=== PATIENT | male | born 1950 | race Caucasian/White ===

== ENCOUNTER 2016-09-27 12:05 | Inpatient (IN) | payer OTHER, MEDICAID ==
[~2016-09-27] VITALS: Ht 177.8 cm; Wt 78.9 kg
[2016-09-27 12:05] VITALS: BP_SYST 85
[~2016-09-27 12:05] MED LIST: ACET-2165 PO; AMPHOGEL PO; ARGI1POW13 PO; ASCO500T20 PO; ATOR20TA64 PO; BACL10TA PO; CAT.1 PO; CYM30 PO; DULR10 RC; ESCI10TA PO; FLEET RC; FOLI-43 PO; GABA-531 PO; HYDR4TAB26 PO; LYR50 PO; MAGN400O4 PO; MELA3TAB37 PO; METO25TA3 PO; MORP30TA PO; MORP30TA59 PO; MULT PO; POLY17PO4 PO; PRO40 PO; TAMS-11 PO; TEMA15CA51 PO; TIZA4TAB11 PO
[2016-09-27] MEDS ORDERED: NACL 0.9% 1,000 ML IV ONE ×2 (12:15→12:30)
[2016-09-27] MEDS ORDERED: LORazepam 2 MG/ML VIAL (FOR ER USE) IVP ONE (12:15)
--- NOTE | 2016-09-27 12:15 | NUR ---
Pt BIB ALS and placed to bed 01, to gown and connected to hedis coordinator. Pt report received from GLORIA Espinoza. [facility]t [facility]. Pt currently alert, responsive, oriented to self. No report of fall or trauma. Dsg to Left and Right buttocks, dsgs removed to reveal 6x8 cm decubitus to Right buttocks with bone visible. 6x10 cm decubitus to Left buttocks, bright red with bone visible. Wounds cleaned with NS and gauze dsg applied. F/C in place, no drainage to bag. Pt denies c/o pain or discomfort.
--- NOTE | 2016-09-27 12:25 | NUR ---
Dr. Becerra at bedside to assess pt.
[2016-09-27] MEDS ORDERED: cefTRIAXone 1 GM IVPB PREMIX 50 ML IV ONE (12:30)
[2016-09-27] MEDS ORDERED: METOCLOPRAMIDE HCL 10 MG/2 ML VIAL IVP ONE (12:30)
[2016-09-27 12:40] LABS: HEMOGLOBIN 9.4 g/dL (14.0-18.0); MEAN CORPUSCULAR HEMOGLOBIN 23 pg (27-31); MEAN CORPUSCULAR HGB CONC 31 % (32-36); MEAN CORPUSCULAR VOLUME 73 fL (79.0-98.0); PLATELET COUNT (AUTO) 506 K/uL (130-430); RED BLOOD CELL COUNT(AUTO) 4.09 MIL/uL (4.2-6.2); WHITE BLOOD COUNT (AUTO) 27.2 K/uL (4.8-10.8)
--- NOTE | 2016-09-27 12:47 | NUR ---
x ray at bedside
[2016-09-27 12:50] LABS: ANION GAP 9 (5-15); CHLORIDE 102 mmol/L (98-107); CREATININE 1.55 mg/dL (0.55-1.30); GLUCOSE 241 mg/dL (70-99); POTASSIUM 4.6 mmol/L (3.5-5.1); SODIUM SERUM 138 mmol/L (136-145); UREA NITROGEN, BLOOD 46 mg/dL (8-21)
[2016-09-27 12:54] LABS: GFR AFRICAN AMERICAN 58 mL/min (>90)
[2016-09-27 12:56] LABS: ALANINE AMINOTRANSFERASE 12 U/L (12-78); ASPARTATE AMINOTRANSFERASE 15 U/L (10-37); TOTAL BILIRUBIN 0.6 mg/dL (0.0-1.0); TOTAL PROTEIN, SERUM 7.6 g/dL (6.4-8.3)
[2016-09-27 12:59] LABS: SALICYLATE 1 mg/dL (3-30)
[2016-09-27 13:01] LABS: ACETAMINOPHEN < 1 ug/mL (1-30)
[2016-09-27 13:04] LABS: ALCOHOL, BLOOD < 3 mg/dL (<10)
[2016-09-27 13:06] LABS: ATYPICAL LYMPHOCYTES % 1 % (0-0); BAND % (MANUAL) 15 % (0-6); EOSINOPHILS % (MANUAL) 0 % (0-7); LYMPHOCYTES % (MANUAL) 13 % (20-46); MONOCYTES % (MANUAL) 2 % (0-11)
[2016-09-27 13:07] LABS: BASOPHILS % (MANUAL) 0 % (0-2); INR 1.1 (0.80-1.20); PROTHROMBIN TIME 11.9 SECS (9.5-12.5)
[2016-09-27] MEDS ORDERED: NOREPINEPHRINE BITARTRATE 4 MG in NS 250 ML IV ONE (13:15)
[2016-09-27 13:34] LABS: BILIRUBIN,URINE NEGATIVE (NEGATIVE); BLOOD, URINE NEGATIVE (NEGATIVE); COLOR,URINE YELLOW (YELLOW); GLUCOSE,URINE NEGATIVE (NEGATIVE); KETONES,URINE NEGATIVE (NEGATIVE); LEUKOCYTE ESTERASE ,URINE 2+ (NEGATIVE); NITRITE, URINE POSITIVE (NEGATIVE); PH,URINE >=9.0 (5.0-8.0); PROTEIN URINE 3+ (NEGATIVE)
[2016-09-27 13:47] LABS: CLARITY/URINE SLIGHTLY CLOUDY (CLEAR)
[2016-09-27 13:48] LABS: BARBITURATE, URINE NEGATIVE (NEG <=200); BENZODIAZEPINE, URINE NEGATIVE (NEG <=150); CANNABINOID, URINE NEGATIVE (NEG <=50); COCAINE, URINE NEGATIVE (NEG <=150); METHAMPHETAMINES SCREEN,URINE NEGATIVE (NEG <=500); OPIATE, URINE POSITIVE (NEG <=100); PHENCYCLIDINE SCREEN,URINE NEGATIVE (NEG <=25); UR TRICYCLIC ANTIDEPRESSANTS NEGATIVE (NEG <=300); URINE AMPHETAMINE NEGATIVE (NEG <=500); URINE METHADONE NEGATIVE (NEG <=200); URINE OXYCODONE SCREEN NEGATIVE (NEG <=100); URINE PROPOXYPHENE SCREEN NEGATIVE (NEG <=300)
[2016-09-27 13:49] LABS: BACTERIA,URINE MANY /HPF (None Seen); RBC,URINE NONE SEEN /HPF (0-3); URINE AMORPHOUS PHOSPHATES 3+ /HPF (None Seen); WBC,URINE 20-50 /HPF (0-3)
[2016-09-27] MEDS ORDERED: MIDAZOLAM HCL 5 MG/5 ML VIAL ONE (14:00)
[2016-09-27] MEDS ORDERED: PROPOFOL 200MG/ 20ML VIAL (DIPRIVAN) IV ONE (14:00)
[2016-09-27] MEDS ORDERED: MEPERIDINE HCL/PF 100 MG/ML AMP ONE (14:00)
--- NOTE | 2016-09-27 14:00 | NUR ---
Stoma noted Right lateral of penis, no s/s infection to site. F/C changed. Upon removal, a gush of urine comes out, foul smelling. New F/C placed using sterile technique, immediate return of 200 mL straw, cloudy urine to bag. Bed linens changed, new gown placed.
--- NOTE | 2016-09-27 15:00 | NUR ---
Pt resting with eyes closed, even and non-labored respiration, improvement to B/P 108/68.
[2016-09-27] MEDS ORDERED: DOCU-144 PO (15:25)
[2016-09-27] MEDS ORDERED: ZOLP10TA2 PO (15:25)
[2016-09-27] MEDS ORDERED: ENOX40DI8 SQ (15:25)
[2016-09-27] MEDS ORDERED: CLOP75TA2 PO (15:25)
[2016-09-27] MEDS ORDERED: LACT1CAP69 PO (15:25)
[2016-09-27] MEDS ORDERED: ALBU2.5V7 INH (15:25)
[2016-09-27] MEDS ORDERED: POTA20TA83 PO (15:25)
[2016-09-27] MEDS ORDERED: FURO20TA4 PO (15:25)
[2016-09-27] MEDS ORDERED: SUCR1TAB78 PO (15:25)
[2016-09-27] MEDS ORDERED: INSU100V32 SUBCUT (15:25)
[2016-09-27] MEDS ORDERED: METO-290 PO (15:25)
[2016-09-27] MEDS ORDERED: MAG-55 PO (15:25)
[2016-09-27] MEDS ORDERED: ARGI1POW13 PO (15:25)
[2016-09-27] MEDS ORDERED: HYDR2TAB34 IVP (15:25)
[2016-09-27] MEDS ORDERED: AMI200 PO (15:25)
[2016-09-27] MEDS ORDERED: MIDO2.5T PO (15:25)
[2016-09-27] MEDS ORDERED: FAMO40TA7 PO (15:25)
[2016-09-27] MEDS ORDERED: CARV6.2554 PO (15:25)
[2016-09-27] MEDS ORDERED: NITSL SL (15:25)
--- NOTE | 2016-09-27 15:25 | NUR ---
Medication reconciliation completed with information provided by - LIST FROM FACILITY. Any prior medication reconciliation on file was reviewed and corrected.
--- NOTE | 2016-09-27 16:30 | NUR ---
Note ángel in EDM - 09/27/16 at 1703 by RM Patient will be admitted to care of Dr. Toledo. Admitted to Tele unit. Will go to room 121B. Summary report printed. Bedside report given to GLORIA Chacon.
--- NOTE | 2016-09-27 16:30 | NUR ---
Patient will be admitted to care of Dr. Toledo. Admitted to Tele unit. Will go to room 121A. Summary report printed. Bedside report given to GLORIA Chacon.
--- NOTE | 2016-09-27 16:41 | NUR ---
ADMISSION NOTE Received patient from ER via jm, received report from CHUCKING AND SAWING MACHINE OPERATOR. Patient admitted with diagnosis of SEPSIS. Patient oriented to hospital routine, call light, toileting and safety-patient verbalized understanding.
[2016-09-27] MEDS ORDERED: MAGNESIUM SULFATE 50 ML IV PRN (16:45)
[2016-09-27] MEDS ORDERED: ONDANSETRON HCL 4 MG/2 ML VIAL IVP PRN (16:45)
[2016-09-27] MEDS ORDERED: ACETAMINOPHEN 325 MG TABLET PO PRN (16:45)
[2016-09-27] MEDS ORDERED: ALBUTEROL SULFATE 0.083% 2.5 MG/3 ML VIAL.NEB INH PRN (16:45)
[2016-09-27] MEDS ORDERED: DEXTROSE 50% JECT 50 ML DISP.SYRIN IVP PRN (16:45)
[2016-09-27] MEDS ORDERED: DOCUSATE SODIUM 100 MG CAPSULE PO PRN ×2 (16:45)
[2016-09-27] MEDS ORDERED: DULoxetine HCL 30 MG CAPSULE.DR (CYMBALTA) PO PRN (16:45)
[2016-09-27 16:59] VITALS: BP_SYST 118
[2016-09-27] MEDS: D5NS 1,000 ML IV SCH (17:24)
[2016-09-27 17:53] VITALS: BP_SYST 118
[2016-09-27] MEDS: PIPERACILLIN/TAZO 2.25G/DEX-IS 50 ML IV SCH (17:57)
[2016-09-27] MEDS: INSULIN ASPART 100 UNITS/ML, 10 ML VIAL (NovoLOG) SUBCUT PRN ×2 (18:04→21:32)
--- NOTE | 2016-09-27 18:30 | NUR ---
WOUND NOTE PATIENT CURRENTLY HAS WOUND ON BILATERAL BUTTOCKS, WOUND NOT VISUALIZED WOUND IS COVERED WITH FOAM GAUZE DRESSING, THERE IS A WOUND ON LEFT LATERAL LOWER LEG AND LEFT FOOT, UNABLE TO ASSESS, WOUNDS COVERED WITH FOAM GAUZE DRESSING, WILL ENDORSE TO SOFTWARE INSTALLATION ENGINEER NURSE FOR PICTURES AND WOUND CARE.
--- NOTE | 2016-09-27 18:49 | NUR ---
CLOSING NOTE PATIENT IS CURRENTLY RESTING IN BED WITH EYES CLOSED, NO SIGNS OF DISTRESS, BREATHING IS EVEN AND UNLABORED, ALL NEEDS MET, WILL ENDORSE PATIENT TO PACKING SUPERVISOR NURSE, BED IN LOWEST POSITION, THREE SIDE RAILS UP, BED ALARM ON, FALL PRECAUTIONS IN PLACE
--- NOTE | 2016-09-27 19:30 | NUR ---
notes received the pt from the day nurse,pt a/a/ox3 no complaints of pain or discomfort. picc line intact to rt upper arm no redness or swelling noted.iv to lt hand intact.pt has open areas to buttocks and lt leg and foot ,will take pictures later tonight.call light within reach.safety measures progress.o2 via nc in place at 2l/min.monitor shows SR pt is paraplegic and can not move his legs.c/o back pain rn was notified but states the pts blood pressure is too low.will continue to monitor.
[2016-09-27 19:40] VITALS: BP_SYST 90
[2016-09-27] MEDS: ATORVASTATIN 20 MG TABLET PO SCH (21:23)
[2016-09-27] MEDS: AMIODARONE HCL 200 MG TABLET PO SCH (21:24)
--- NOTE | 2016-09-27 21:30 | NUR ---
notes pts bp is 88/50 pt informed that we can not give him the morphine untill the bp goes up.continue to monitor.
[2016-09-27] MEDS: VANCOMYCIN HCL 1,500 MG in NS 250 ML IV SCH (22:00)
--- NOTE | 2016-09-27 23:30 | NUR ---
notes pt requesting morphine,bp checked and now is 98/56 rn was notified.
[2016-09-28] VITALS (7 sets, daily range): BP systolic 92–137
--- NOTE | 2016-09-28 01:15 | NUR ---
notes pt resting with eyes closed ,call light within reach.continue to monitor.
[2016-09-28] MEDS: D5NS 1,000 ML IV SCH ×3 (01:44→20:50)
[2016-09-28] MEDS: PIPERACILLIN/TAZO 2.25G/DEX-IS 50 ML IV SCH ×4 (01:44→17:09)
--- NOTE | 2016-09-28 03:13 | NUR ---
PATIENT HAS COMPLAINTS OF PAIN. JK=817/56. HR= 98 WILL GIVE PRN PAIN MEDICATION.
[2016-09-28] MEDS: MORPHINE 2 MG/ML INJ. SYRINGE IVP PRN ×2 (03:16→09:00)
--- NOTE | 2016-09-28 03:30 | NUR ---
notes pictures taken of buttocks decubitus.open area of lt heel,open areas to lt lower leg.dressings applied..colostomy bag full of soft brown stool.bag changed.pt complaining that the morphine is not helping and is asking for Dilaudid pt was educated on what happens to his bp if he receives strong narcotics.also told mult.times that his bp has been running low..repositioned to his side with pillow support.call light within reach.continue to monitor.
--- NOTE | 2016-09-28 05:30 | NUR ---
pt resting with eyes closed but will open his eyes and c/o pain.will notify the rn.bp 101/67
[2016-09-28] MEDS: INSULIN ASPART 100 UNITS/ML, 10 ML VIAL (NovoLOG) SUBCUT PRN ×4 (06:27→21:06)
--- NOTE | 2016-09-28 06:52 | NUR ---
closing notes. pt awake alert watching tv,will endorse the care of the pt to the day nurse.
[2016-09-28 07:00] LABS: HEMATOCRIT 24.9 % (36-54); HEMOGLOBIN 7.5 g/dL (14.0-18.0); MEAN CORPUSCULAR HEMOGLOBIN 22 pg (27-31); MEAN CORPUSCULAR HGB CONC 30 % (32-36); MEAN CORPUSCULAR VOLUME 73 fL (79.0-98.0); PLATELET COUNT (AUTO) 405 K/uL (130-430); WHITE BLOOD COUNT (AUTO) 18.7 K/uL (4.8-10.8)
[2016-09-28 07:18] LABS: CREATININE 1.28 mg/dL (0.55-1.30); POTASSIUM 3.7 mmol/L (3.5-5.1)
--- NOTE | 2016-09-28 07:35 | NUR ---
am rounds: patient awake during rounds. report given at bedside by nani zamorano. with right upper arm piccline on.right forearm ivf on going intact. with o2 2l/nc,good saturation. paraphlegic. pt oriented x4. right ileostomy intact. archer draining to yellow urine. no distress this time.
[2016-09-28] MEDS: AMIODARONE HCL 200 MG TABLET PO SCH ×2 (09:00→20:51)
--- NOTE | 2016-09-28 09:06 | NUR ---
PAIN MEDS: C/O MID BILATERAL LOWER LEG PAIN AND DUE IV PAIN MEDS GIVEN PER REQUEST.
[2016-09-28 09:16] LABS: BAND % (MANUAL) 6 % (0-6)
[2016-09-28 09:17] LABS: BASOPHILS % (MANUAL) 0 % (0-2); EOSINOPHILS % (MANUAL) 1 % (0-7); LYMPHOCYTES % (MANUAL) 4 % (20-46); MONOCYTES % (MANUAL) 6 % (0-11)
--- NOTE | 2016-09-28 09:46 | NUR ---
Nutrition Update Slim Scale 13 noted. Pt admitted for sepsis. Diet: [facility] BMI: 23.7 kg/m2 RD to follow per nutrition care standards.
--- NOTE | 2016-09-28 11:20 | NUR ---
Consult was called Re: Sepsis spoke with Jadyn from Dr Arias office.
[2016-09-28] MEDS: CLOPIDOGREL BISULFATE 75 MG TABLET PO SCH (11:23)
[2016-09-28] MEDS: HYDROmorphone 2 MG/ML VIAL IVP PRN ×3 (11:27→21:15)
--- NOTE | 2016-09-28 11:46 | NUR ---
BLOOD SUGAR: BLOOD SUGAR TAKEN,WITH INSULIN COVERAGE GIVEN PER SLIDING SCALE.
--- NOTE | 2016-09-28 15:15 | NUR ---
rounds; ultrasound of both knees done at bedside. stable.
--- NOTE | 2016-09-28 17:11 | NUR ---
BLOOD SUGAR: BLOOD SUGAR TAKEN,WITH INSULIN COVERAGE GIVEN PER SLIDING SCALE.
--- NOTE | 2016-09-28 17:12 | NUR ---
WOUND CARE: CLEANSE NS TO LEFT HEEL,HYDROGEL ON WOUND BED,Z-GUARD ON PERIWOUND AREA,COVERED WITH OPTIFOAM GENTLE.LEFT LATERAL LEG CLEANSE WITH NS,HYDROGEL TO WOUND BED AND Z-GUARD TO PERIWOUND AREA,COVERED WITH OPTIFOAM AND WRAPPED WITH KERLIX. BILATERAL BUTTOCKS CLEANSE WITH NS ,TENDER WETS ON EACH WOUND AND COVERED WITH SACRAL OPTIFOAM GENTLE.
--- NOTE | 2016-09-28 18:44 | NUR ---
CLOSING NOTES: PATIENT ATE DINNER ALREADY. IVF ON GOING IN PLACED.NEEDS ATTENDED TO. NO DISTRESS. CONTINUE TO MONITOR.
--- NOTE | 2016-09-28 19:45 | NUR ---
notes received the pt from the day nurse,pt a/a/ox4 asking when he can get more pain medication.was informed he can have it at 2044.all dressings to lt leg and buttocks are dry and intact.colostomy bag noticed empty.monitor in place and shows SR.iv to rt forearm intact,no redness or swelling noted.picc line intact to upper rt arm.o2 via nc in place at 2l/min.pt is paraplegic and can only move from the waist up.pt informed that he can not have anything by mouth after midnight.call light within reach,safety measures in progress.continue to monitor.
[2016-09-28] MEDS: ATORVASTATIN 20 MG TABLET PO SCH (20:50)
[2016-09-28] MEDS: FERROUS SULFATE 325 MG TABLET.DR PO SCH (20:51)
--- NOTE | 2016-09-28 21:19 | NUR ---
NOTES C/O PAIN TO HIS LEGS 02/28 RN WAS NOTIFIED.ACCUCHECK WAS 222,INSULIN GIVEN PER S/S REPOSITIONED WITH PILLOW SUPPORT.CONTINUE TO MONITOR.
[2016-09-28] MEDS: ZOLPIDEM TARTRATE 5 MG TABLET PO PRN (21:59)
--- NOTE | 2016-09-28 22:06 | NUR ---
notes stool sent to the lab.
[2016-09-28] MEDS: VANCOMYCIN HCL 1,500 MG in NS 250 ML IV SCH (23:27)
--- NOTE | 2016-09-28 23:47 | NUR ---
notes pt sleeping,call light within reach.continue to monitor.
[2016-09-29] MEDS: PIPERACILLIN/TAZO 2.25G/DEX-IS 50 ML IV SCH ×4 (00:45→17:10)
--- NOTE | 2016-09-29 01:30 | NUR ---
NOTES PT SLEEPING.NO DISTRESS NOTED.CALL LIGHT WITHIN REACH.CONTINUE TO MONITOR,.
[2016-09-29] MEDS: HYDROmorphone 2 MG/ML VIAL IVP PRN ×4 (01:44→20:38)
--- NOTE | 2016-09-29 03:30 | NUR ---
NOTES PT REPOSITIONED WITH PILLOW SUPPORT.CONTINUE TO MONITOR.
[2016-09-29 04:07] VITALS: BP_SYST 111
--- NOTE | 2016-09-29 05:11 | NUR ---
NOTES PT REPOSITIONED WITH PILLOW SUPPORT.CONTINUE TO MONITOR.
[2016-09-29] MEDS: INSULIN ASPART 100 UNITS/ML, 10 ML VIAL (NovoLOG) SUBCUT PRN ×3 (05:49→21:40)
--- NOTE | 2016-09-29 05:53 | NUR ---
accucheck was 185,insulin given per s/s.laborer wrecking and salvaging is at the bedside to draw blood.
--- NOTE | 2016-09-29 06:14 | NUR ---
closing notes pt awake alert.lab is at the bed side to draw blood.will endorse the care of the pt to the day nurse.
[2016-09-29 06:38] LABS: EOSINOPHILS # (AUTO) 0.7 K/uL (0.0-0.4); LYMPHOCYTES # (AUTO) 1.1 K/uL (1.0-5.5); MONOCYTES # (AUTO) 0.6 K/uL (0.0-1.0)
[2016-09-29 06:51] LABS: CALCIUM 8.2 mg/dL (8.4-11.0); CREATININE 1.07 mg/dL (0.55-1.30); POTASSIUM 3.2 mmol/L (3.5-5.1)
[2016-09-29 07:02] LABS: BASOPHILS % (AUTO) 0.2 % (0.0-2.0); EOSINOPHILS % (AUTO) 4.8 % (0.0-4.0); HEMATOCRIT 23.9 % (36-54); HEMOGLOBIN 7.5 g/dL (14.0-18.0); LYMPHOCYTES % (AUTO) 7.7 % (20.5-51.5); MEAN CORPUSCULAR HEMOGLOBIN 23 pg (27-31); MEAN CORPUSCULAR HGB CONC 32 % (32-36); MEAN CORPUSCULAR VOLUME 73 fL (79.0-98.0); MONOCYTES % (AUTO) 3.8 % (1.7-9.3); NEUTROPHILS # (AUTO) 12.3 K/uL (1.8-7.7); NEUTROPHILS % (AUTO) 83.5 % (40.0-70.0); PLATELET COUNT (AUTO) 407 K/uL (130-430); RED BLOOD CELL COUNT(AUTO) 3.28 MIL/uL (4.2-6.2); WHITE BLOOD COUNT (AUTO) 14.7 K/uL (4.8-10.8)
[2016-09-29 08:00] VITALS: BP_SYST 112
--- NOTE | 2016-09-29 08:00 | NUR ---
NOTE PT RESTING IN BED. PT HAS O2 AT 2L/NC AT THIS TIME AND MELO CATHETER INTACT AND DRAINING WELL. NO SOB/RESP DISTRESS OR SEVERE PAIN/DISCOMFORT WAS NOTED AT THIS TIME. IV IN RIGHT FOREARM INTACT AND INFUSING IVF'S WELL. NO NEEDS NOTED AT THIS TIME. CALL LIGHT WITHIN REACH.
[2016-09-29] MEDS: D5NS 1,000 ML IV SCH ×2 (08:25→09:03)
[2016-09-29] MEDS: AMIODARONE HCL 200 MG TABLET PO SCH ×2 (08:37→21:37)
[2016-09-29] MEDS: DULoxetine HCL 30 MG CAPSULE.DR (CYMBALTA) PO SCH (08:38)
[2016-09-29] MEDS: CLOPIDOGREL BISULFATE 75 MG TABLET PO SCH (08:38)
[2016-09-29] MEDS: FERROUS SULFATE 325 MG TABLET.DR PO SCH ×2 (08:38→21:37)
--- NOTE | 2016-09-29 10:00 | NUR ---
NOTE PT WAS GIVEN HIS CHG BATH AND PT OFF THE FLOOR VIA BED TO OR WITH CHART WELL.
[2016-09-29] MEDS ORDERED: LR 1,000 ML IV SCH (10:42)
[2016-09-29] MEDS ORDERED: ONDANSETRON HCL 4 MG/2 ML VIAL IVP PRN (10:45)
[2016-09-29] MEDS ORDERED: HYDROmorphone 2 MG/ML VIAL IVP PRN ×2 (10:45)
[2016-09-29] MEDS ORDERED: HYDROmorphone 1 MG INJ. 1 MG/ML AMPUL IVP PRN (10:45)
--- NOTE | 2016-09-29 11:55 | NUR ---
NOTE DR ESTRADA ON THE FLOOR. NOTIFIED THAT PT TESTED POSITIVE FOR MRSA IN NARES AND MDRO AND ESBL IN URINE.
--- NOTE | 2016-09-29 12:15 | NUR ---
Wound Consult: Late note for 1215 secondary to patient care. Wound consult request per Dr. Toledo. Thank you, Dr. Toledo, for the consult. Patient awake, alert, oriented, and received in operating room. Skin is poor. Past medical history: Paraplegia, Chronic Pain, Opioid Dependence, Hypertension, Hyperlipidemia, Benign Prostatic Hypertrophy, diet-controlled Diabetes Mellitus, Stage IV Decubitus Ulcer, and Diverting Colostomy. Current labs: WBC 14.7, RBC 3.28, Hgb 7.5, Hct 23.9, K 3.2, BUN 16, Creat 1.07, GFR 73, Gluc 220, Ca 8.2, Alb 2.0. Urine Culture positive for Proteus Mirabilis (ESBL, NDRO). MRSA Screen positive. Stool OB negative. Blood Culture x 2 in progress. Intrinsic factors that delay wound healing: Diabetes Mellitus. Extrinsic factors: decreased mobility. Patient presents with: 1) Buttocks Area: Two wounds, present on admission, status post debridement. Wound Vac dressings attached. Dressings not removed for assessment. Attached additional wound vac suction attachment per OR Staff request. Wound Vac started, running at 125 mmHg continuous, no leakage, on right buttock. Awaiting wound vac for left buttock (ordered). Second Wound Vac will be attached when it arrives. If it is longer than two hours, then a new granufoam dressing will be placed before wound vac is attached. Skin will be further assessed on next visit, as patient is going to recovery. Also recommend: Reposition patient side to side only every 2 hours with pillow support, place bilateral heels into Heelift Boots. Offload pressure areas with pillows for pressure redistribution. Use moisture barrier cream on buttocks and other moisture susceptible areas qid and prn for soiling. Place patient on a low air-loss mattress. Place Heelift Boot foam blocks on lateral aspects of Heelift Boots to help prevent external rotation of bilateral lower extremities (use pillows as needed if Heelift Boots alone do not prevent external rotation).
[2016-09-29 12:30] VITALS: BP_SYST 115
--- NOTE | 2016-09-29 12:30 | NUR ---
note pt back from PACU. left heel dressing CDI at this time. coccyx dressing CDI. wound vac not attached at this time, missing a piece. Carlton vp account director aware and will assist in finding missing piece. call light within reach. pain at 8/10 on pain scale of 0/10.
[2016-09-29 12:45] VITALS: BP_SYST 116
--- NOTE | 2016-09-29 15:30 | NUR ---
NURSING NOTE PT RESTING IN BED. NO SOB/RESP DISTRESS OR SEVERE PAIN/DISCOMFORT WAS NOTED AT THIS TIME. PT WAS TURNED Q2' FOR COMFORT AND PROMOTION OF CIRCULATION. DRESSINGS ARE CDI AT THIS TIME. IVF'S INFUSING WELL AT THIS TIME. PAIN TOLERABLE AT THIS TIME. NO NEEDS NOTED AT THIS TIME. CALL LIGHT WITHIN REACH.
--- NOTE | 2016-09-29 18:45 | NUR ---
NOTE PT SITTING UP IN BED EATING HIS DINNER. DRESSING ON COCCYX AND LEFT HEEL CDI AT THIS TIME. NO SOB/RESP DISTRESS OR PAIN/DISCOMFORT NOTED AT THIS TIME. WOUND VAC STILL NOT ATTACHED NEW WOUND VAC HAS NOT ARRIVED ON FLOOR YET. NO NEEDS NOTED. PT WAS CHECKED ON Q1' AND PRN FOR NEEDS AND CARE. PT WAS ASSISTED IN TURNING Q2' FOR COMFORT. CALL LIGHT WITHIN REACH. IVF'S INFUSING WELL THROUGH RIGHT HAND IV. SITE BENIGN AND PATENT AT THIS TIME.
--- NOTE | 2016-09-29 19:30 | NUR ---
NOTE MARLEN - CDL INSTRUCTOR BROUGHT IN NEW WOUND VAC AT THIS TIME. EXPLAINED TO ADAPTIVE PHYSICAL EDUCATION SPECIALIST NAVEEN POLLARD, THAT COCCYX DRESSING WILL HAVE TO BE REMOVED AND NEW FOAM WILL HAVE TO BE APPLIED WHEN ATTACHING WOUND VAC PER MARLEN'S INSTRUCTIONS.
[2016-09-29 19:35] VITALS: BP_SYST 120
--- NOTE | 2016-09-29 19:35 | NUR ---
Initial Notes Pt is A/Ox4. Pt c/o bilateral hip pain but informed that pain medication not due at this time. Pt educated on pain management, and agreed with education given. Plan of care discussed with pt, pt verbalized understanding. VSS. IV intact infusing well with IV fluids ordered. Colostomy bag noted to Right lower abdomen, with formed brown stool. Wound Vac noted to sacral area, will do wound vac dressing change as ordered. F/C noted in place and draining well to gravity, with clear/yellow urine noted in collection bag. Dressing to left foot noted, clean, dry and intact. Bilateral scd's noted in place of dvt prophylaxis. Safety precautions in place, side rails up x3 with bed in lowest, locked position, bed alarm on at all times. Pt educated electronic warfare operator light, and correct back demonstration noted. All needs met at this time. Will continue to monitor.
--- NOTE | 2016-09-29 20:38 | NUR ---
Pain Management Pt c/o bilateral hip pain 02/28. Covering RN notified and medicated for pain as ordered. All needs met. Call light in hand. Will continue to monitor.
[2016-09-29] MEDS: VANCOMYCIN HCL 1,500 MG in NS 250 ML IV SCH (20:42)
[2016-09-29] MEDS: ATORVASTATIN 20 MG TABLET PO SCH (21:35)
--- NOTE | 2016-09-29 21:40 | NUR ---
Scheduled medications/Blood sugar All scheduled medications discussed with pt, pt agreed with teaching. Blood sugar checked, 162. 2 units of NovoLog given SQ as ordered. All needs met at this time. Will continue to monitor.
--- NOTE | 2016-09-29 22:00 | NUR ---
Colostomy bag changed New colostomy bag placed at this time to right lower abdomen. Pt tolerated well with no c/o pain at this time. Call light in hand. Will continue to monitor.
--- NOTE | 2016-09-29 23:36 | NUR ---
Wound Vac Care - Wound Vac care done with diesel engine ii pipe fitter at bedside to bilateral buttocks as ordered. Pt tolerated well and was pre medicated as ordered. No air leakage noted, wound vac set to 125mmhg as ordered. Pt re positioned with pillows to off load both hips. Warm blankets provided. All needs met at this time. Call light in hand. Will continue to monitor.
--- NOTE | 2016-09-30 00:26 | NUR ---
New IV site New IV site started to LFA #22g on first attempt with good blood return noted. Pt tolerated well. IV fluids resumed. All needs met. Call light in hand. Will continue to monitor.
[2016-09-30 00:41] VITALS: BP_SYST 135
[2016-09-30] MEDS: PIPERACILLIN/TAZO 2.25G/DEX-IS 50 ML IV SCH ×4 (00:44→18:10)
[2016-09-30] MEDS: POTASSIUM CHLORIDE 10 MEQ TAB.PRT.SR PO PRN (00:56)
--- NOTE | 2016-09-30 02:31 | NUR ---
Rounds Pt is resting in bed at this time in no acute distress noted. All needs met at this time. Will continue to monitor.
[2016-09-30] MEDS: HYDROmorphone 2 MG/ML VIAL IVP PRN ×5 (04:48→22:06)
--- NOTE | 2016-09-30 04:48 | NUR ---
Pain Management Pt c/o bilateral lower extremity pain 02/28. Covering RN notified and medicated for pain as ordered. All needs met. Call light in hand. Will continue to monitor.
[2016-09-30] MEDS: D5NS 1,000 ML IV SCH ×3 (06:03→18:07)
[2016-09-30] MEDS: INSULIN ASPART 100 UNITS/ML, 10 ML VIAL (NovoLOG) SUBCUT PRN ×4 (06:04→21:54)
[2016-09-30 06:05] VITALS: BP_SYST 123
[2016-09-30 06:59] LABS: BASOPHILS # (AUTO) 0.1 K/uL (0.0-0.2); BASOPHILS % (AUTO) 0.5 % (0.0-2.0); EOSINOPHILS # (AUTO) 0.6 K/uL (0.0-0.4); EOSINOPHILS % (AUTO) 4.4 % (0.0-4.0); HEMOGLOBIN 7.4 g/dL (14.0-18.0); LYMPHOCYTES # (AUTO) 1.2 K/uL (1.0-5.5); LYMPHOCYTES % (AUTO) 9.9 % (20.5-51.5); MEAN CORPUSCULAR HEMOGLOBIN 23 pg (27-31); MEAN CORPUSCULAR HGB CONC 31 % (32-36); MEAN CORPUSCULAR VOLUME 73 fL (79.0-98.0); MONOCYTES # (AUTO) 0.7 K/uL (0.0-1.0); MONOCYTES % (AUTO) 5.4 % (1.7-9.3); NEUTROPHILS % (AUTO) 79.8 % (40.0-70.0); PLATELET COUNT (AUTO) 418 K/uL (130-430); RED BLOOD CELL COUNT(AUTO) 3.29 MIL/uL (4.2-6.2); RED CELL DISTRIBUTION WIDTH 20.8 % (9.0-15.0); WHITE BLOOD COUNT (AUTO) 12.6 K/uL (4.8-10.8)
--- NOTE | 2016-09-30 07:01 | NUR ---
Closing Notes Assisted pt to turn to right side with pillows for comfort. Blood sugar checked 185, 2 units of novolog given to right upper arm as per sliding scale. Wound vac to right and left buttocks running well with no air leak noted, with total of 40cc to left wound vac, and 0 output noted to wound vac to right buttocks. Pt in stable condition with no acute distress noted. VSS. IV intact to LFA #22g. Call light in hand. Will endorse care to am nurse. Will continue to monitor.
[2016-09-30 07:12] LABS: CREATININE 1.01 mg/dL (0.55-1.30); POTASSIUM 3.7 mmol/L (3.5-5.1)
[2016-09-30 08:00] VITALS: BP_SYST 153
--- NOTE | 2016-09-30 08:40 | NUR ---
REPORT RECIEVED EARLIER FROM NIGHTSHIFT; BS ROUNDS MADE. PT AWAKE AND ALERT X4; IV SITE 22G INTACT. DENIES ANY PAIN AT THIS TIME; WOUND VAC INTACT AND DRAINING. NO SOB NOTED. DENIES ANY NAUSEA. CALL LIGHT IN REACH; SAFETY MAINTAINED.
[2016-09-30] MEDS: DULoxetine HCL 30 MG CAPSULE.DR (CYMBALTA) PO SCH (09:18)
[2016-09-30] MEDS: AMIODARONE HCL 200 MG TABLET PO SCH ×2 (09:18→21:51)
[2016-09-30] MEDS: FERROUS SULFATE 325 MG TABLET.DR PO SCH ×2 (09:19→21:50)
[2016-09-30] MEDS: CLOPIDOGREL BISULFATE 75 MG TABLET PO SCH (09:19)
--- NOTE | 2016-09-30 09:45 | NUR ---
Spoke with Dr. Toledo regarding patient's picc line. Gave order to follow hospital protocol for blocked picc line. Discuss with charge nurse.
[2016-09-30 12:00] VITALS: BP_SYST 122
[2016-09-30] MEDS ORDERED: HEPARIN IV FLUSH 300 UNITS/3ML SYR IV PRN (13:30)
[2016-09-30 17:48] VITALS: BP_SYST 125
--- NOTE | 2016-09-30 19:08 | NUR ---
REPORTED OFF TO NIGHTSHIFT; BS ROUNDS MADE. IV SITE INTACT; WOUND VAC INTACT, NO ALARMING TO LEAKING. PAIN UNDER CONTROL AFTER DILAUDID GIVEN. NO S/SX OF ANY HYPO OR HYPERGLYCEMIC REACTIONS. CALL LIGHT IN REACH, SAFETY MAINTAINED AT ALL TIMES.
--- NOTE | 2016-09-30 19:30 | NUR ---
Initial Notes Pt is A/Ox4. Pt denies any pain at this time. Pt repositioned with pillows facing door at this time. Pt educated on pain management, and agreed with education given. Plan of care discussed with pt, pt verbalized understanding. VSS. IV intact infusing well with IV fluids ordered. Colostomy bag noted to Right lower abdomen, with formed brown stool. Wound Vac x2 noted to sacral area. F/C noted in place and draining well to gravity, with clear/yellow urine noted in collection bag. Dressing to left foot noted, clean, dry and intact. Bilateral scd's noted in place of dvt prophylaxis. Safety precautions in place, side rails up x3 with bed in lowest, locked position, bed alarm on at all times. Pt educated transportation maintenance worker light, and correct back demonstration noted. All needs met at this time. Will continue to monitor.
[2016-09-30 19:35] VITALS: BP_SYST 117
[2016-09-30] MEDS: VANCOMYCIN HCL 1,500 MG in NS 250 ML IV SCH (20:58)
--- NOTE | 2016-09-30 21:03 | NUR ---
Paged MD Toledo Awaiting call back.
--- NOTE | 2016-09-30 21:05 | NUR ---
Spoke with MD Toledo Per MD Tre cosby to use PICC line to CIRO. No CXR needed to confirm placement as per MD Order.
[2016-09-30] MEDS: ATORVASTATIN 20 MG TABLET PO SCH (21:50)
[2016-09-30] MEDS: ZOLPIDEM TARTRATE 5 MG TABLET PO PRN (23:19)
[2016-10-01 00:58] VITALS: BP_SYST 109
[2016-10-01] MEDS: PIPERACILLIN/TAZO 2.25G/DEX-IS 50 ML IV SCH ×5 (01:08→23:43)
--- NOTE | 2016-10-01 02:55 | NUR ---
Rounds Pt is sleeping comfortably at this time. No acute distress or sob noted. VSS. PICC line intact. Call light in hand. Will continue to monitor.
[2016-10-01] MEDS: HYDROmorphone 2 MG/ML VIAL IVP PRN ×5 (04:54→21:15)
--- NOTE | 2016-10-01 04:54 | NUR ---
Pain Management Pt c/o bilateral lower extremity pain 03/30. Covering RN notified and medicated for pain as ordered. All needs met. Call light in hand. Will continue to monitor.
[2016-10-01] MEDS: D5NS 1,000 ML IV SCH ×2 (05:02→15:42)
[2016-10-01] MEDS: INSULIN ASPART 100 UNITS/ML, 10 ML VIAL (NovoLOG) SUBCUT PRN ×3 (05:52→17:12)
[2016-10-01 06:11] VITALS: BP_SYST 109
[2016-10-01 06:29] LABS: BASOPHILS # (AUTO) 0.1 K/uL (0.0-0.2); BASOPHILS % (AUTO) 0.8 % (0.0-2.0); EOSINOPHILS # (AUTO) 0.7 K/uL (0.0-0.4); EOSINOPHILS % (AUTO) 8.4 % (0.0-4.0); HEMATOCRIT 24.3 % (36-54); HEMOGLOBIN 7.4 g/dL (14.0-18.0); LYMPHOCYTES # (AUTO) 1.4 K/uL (1.0-5.5); LYMPHOCYTES % (AUTO) 16.5 % (20.5-51.5); MEAN CORPUSCULAR HEMOGLOBIN 22 pg (27-31); MEAN CORPUSCULAR HGB CONC 31 % (32-36); MEAN CORPUSCULAR VOLUME 73 fL (79.0-98.0); MONOCYTES # (AUTO) 0.6 K/uL (0.0-1.0); MONOCYTES % (AUTO) 6.7 % (1.7-9.3); NEUTROPHILS % (AUTO) 67.6 % (40.0-70.0); PLATELET COUNT (AUTO) 456 K/uL (130-430); RED BLOOD CELL COUNT(AUTO) 3.34 MIL/uL (4.2-6.2); RED CELL DISTRIBUTION WIDTH 20.2 % (9.0-15.0); WHITE BLOOD COUNT (AUTO) 8.8 K/uL (4.8-10.8)
[2016-10-01 06:48] LABS: CALCIUM 8.2 mg/dL (8.4-11.0); CREATININE 1.06 mg/dL (0.55-1.30); POTASSIUM 3.5 mmol/L (3.5-5.1)
--- NOTE | 2016-10-01 06:52 | NUR ---
Closing Notes Assisted pt to turn to left side with pillows for comfort. Blood sugar checked 206, 4 units of NovoLog given to right upper arm as per sliding scale. Wound vac to right and left buttocks running well with no air leak noted, with total of 100cc to left wound vac, and 50cc output noted to wound vac to right buttocks. Wound Vac reinforced with Tegaderm. Pt in stable condition with no acute distress noted. VSS. IV intact to LFA #22g. Call light in hand. Will endorse care to am nurse. Will continue to monitor. Addendum: 10/01/16 at 0654 by Colleen Belle LVN Blood sugar 209
--- NOTE | 2016-10-01 07:30 | NUR ---
INITIAL NOTES RECEIVED PATIENT ON BED AWAKE.BREATHING EVEN AND UNLABORED.NO ACUTE DISTRESS.IVF INFUSING WELL;NO SIGNS AND SYMPTOMS OF INFILTRATION.WITH WOUND VAC TO BUTTOCKS INTACT;FUNCTIONING WELL.WITH MELO CATHETER INTACT AND PATENT DRAINING YELLOW URINE.SAFETY AND FALL PRECAUTIONS IN PLACE.CALL LIGHT WITHIN REACH
[2016-10-01 08:00] VITALS: BP_SYST 117
[2016-10-01] MEDS: CLOPIDOGREL BISULFATE 75 MG TABLET PO SCH (09:07)
[2016-10-01] MEDS: DULoxetine HCL 30 MG CAPSULE.DR (CYMBALTA) PO SCH (09:07)
[2016-10-01] MEDS: FERROUS SULFATE 325 MG TABLET.DR PO SCH ×2 (09:07→21:14)
[2016-10-01] MEDS: AMIODARONE HCL 200 MG TABLET PO SCH ×2 (09:09→21:14)
--- NOTE | 2016-10-01 10:20 | NUR ---
NOTES CHECKED PATIENT;NEEDS ATTENDED TO
[2016-10-01 12:00] VITALS: BP_SYST 105
--- NOTE | 2016-10-01 12:34 | NUR ---
DISCHARGE PLANNING Called and spoke with Lovely in admitting at [facility] who confirmed facility not able to handle patient with two wound vacs. CM made aware.
--- NOTE | 2016-10-01 13:00 | NUR ---
NOTES PATIENT EATING LUNCH;TOLERATING WELL
--- NOTE | 2016-10-01 15:00 | NUR ---
Wound Re-Evaluation: Late note for 1500 secondary to patient care. Patient awake, alert, oriented, and received in a Choco Bed with an IsoFlex GEO mattress with low air-loss therapy. Skin is poor. Blood Culture x 2 in progress. Intrinsic factors that delay wound healing: Diabetes Mellitus. Extrinsic factors: decreased mobility. Patient presents with: 1) Buttocks Area: Two wounds, present on admission, status post debridement. Staged as Stage IV Pressure Ulcers by Dr. Grimes. Wound Vac attached, running at 125 mmHg, and not due to be changed until tomorrow. Dressings not removed for assessment, because doing so would decrease wound temperature and retard wound healing rate. Skin will be further assessed on next visit. Recommend: Cleanse wounds with normal Saline. Pat dry. Put SurePrep onto ayanna-wounds. Put Hydrogel onto wound beds. Place black granufoam into wound beds. Cover with Vac drape. Cut hole in drape. Apply SurePrep to buttocks and thighs, and place Vac drape up to a non-bony area of anterior thighs. Run black granufoam up to thighs, and cover with Vac drape. Attach suction attachment. Attach to wound vac and run at 125 mmHg, continuous. Change vac dressings q Wednesday/Wednesday/Wednesday, and as needed for dressing dislodgment. 2) Left Heel: Pressure Ulcer, present on admission. Surgical dressing is clean, dry, and intact. No current wound care orders received by Dr. Grimes. Recommend: Continue to monitor. Reinforce dressing prn. Nursing to follow up with Dr. Grimes for nursing wound care orders. 3) Right Distal Lateral Lower Extremity, Superior to Malleolus: Chronic wound with 100% black eschar, and scar tissue, present on admission. No odor, no drainage. Ayanna-wound intact. Measures 2.3 cm x 0.9 cm. 4) Left Distal Lateral Lower Extremity: Scar tissue, present on admission. No odor, no drainage. 5) Right Great Toe Chronic wound with 100% black eschar, present on admission. No odor, no drainage. Ayanna-wound intact. Recommend: No dressings needed. Continue to monitor for worsening condition. Contact wound interior plant caretaker if areas worsen. 6) Buttocks: Blanchable redness. Recommend: Cleanse area with mild soap and water. Pat dry. Apply moisture barrier cream to buttocks qid and prn for soiling. Also recommend: Reposition patient side to side only every 2 hours with pillow support, place bilateral heels into Heelift Boots. Offload pressure areas with pillows for pressure redistribution. Use moisture barrier cream on buttocks and other moisture susceptible areas qid and prn for soiling. Place patient on a low air-loss mattress. Place Heelift Boot foam blocks on lateral aspects of Heelift Boots to help prevent external rotation of bilateral lower extremities (use pillows as needed if Heelift Boots alone do not prevent external rotation). Take wound cultures of bilateral buttocks wounds. If wounds have no organism, or the same organism, bridge wounds to one wound vac. Otherwise, keep wounds on separate wound vacs.
--- NOTE | 2016-10-01 15:15 | NUR ---
NOTES BODY CHECK DONE WITH WOUND NURSE CLINICAL PRACTITIONER;WOUND VAC DRESSING INTACT;FUNCTIONING WELL.WITH SCAR TISSUE TO BILATERAL LOWER LEGS.WITH BLACK ESCHAR TO RIGHT GREAT TOE.WITH CHRONIC WOUND TO RIGHT POSTERIOR LOWER LEG;NO DRAINAGE;TOLERATED ACTIVITY WELL.SURGICAL DRESSING TO LEFT FOOT DRY CLERANB Addendum: 10/01/16 at 1649 by Kadi Queen RN CLEAN AND INTACT
[2016-10-01 17:03] VITALS: BP_SYST 103
[2016-10-01] MEDS: metFORMIN HCL 500 MG TABLET PO SCH (17:04)
--- NOTE | 2016-10-01 17:26 | NUR ---
patient refuse to be wash and to change sheets RN was aware
--- NOTE | 2016-10-01 18:00 | NUR ---
NOTES REPOSITIONING DONE;TOLERATED WELL.OFFERED BEDSIDE CARE BUT REFUSED STATED "NO I'M OKAY"
--- NOTE | 2016-10-01 19:00 | NUR ---
CLOSING NOTES PATIENT ON BED AWAKE WATCHING T.V.BREATHING EVEN AND UNLABORED.NO ACUTE DISTRESS.IVF INFUSING WELL;NO SIGNS AND SYMPTOMS OF INFILTRATION.MELO CATHETER INTACT AND PATENT DRAINING YELLOW URINE.WOUND VAC INTACT;FUNCTIONING WELL.SAFETY AND FALL PRECAUTIONS IN PLACE.CALL LIGHT WITHIN REACH.ENDORSED TO NEXT SHIFT ACCORDINGLY
[2016-10-01 19:50] VITALS: BP_SYST 124
--- NOTE | 2016-10-01 19:50 | NUR ---
INITIAL NOTES; -Pt is a/xo4, resting in bed. Pt denies any chest pain,pain,sob,or any acute distress. Vital signs 98.7, 124/81, 99,20,d8fnk=65% r/a. PICC line rt upper arm and rt hand, patent, no s/s any infiltration noted. Saline miroslava of left hand patent, no s/s any infiltration after flushed w/ NS. Lung sounds damaris upper anterior and posterior upper lobes clear, damaris posterior lower lobes lobes diminished. BS present,abdomen soft & nondistended. Pandey cath w/ gravity drains deborah urine output. [address] both buttocks both drains light brownish drainage. Contact isolation for MRSA nares and MDRO and ESBL urine. All safety measures in place. Discussed poc, all safety measures, instructed pt not to get out bed by self, if needs assistance, to use call light for assistance, pt verbalized understanding. Call light w/in reach. Continue to monitor pt. Addendum: 10/02/16 at 0638 by Alberto Mcdonald RN ADDITIONAL NOTES; COLOSTOMY RLQ IN PLACE OF ABDOMEN SOFT PASTY DARK GREEN STOOL.
[2016-10-01] MEDS: ATORVASTATIN 20 MG TABLET PO SCH (21:13)
[2016-10-01] MEDS: VANCOMYCIN HCL 1,500 MG in NS 250 ML IV SCH (21:14)
--- NOTE | 2016-10-01 21:15 | NUR ---
PAIN MEDICATION ADMINISTERED -Pt is c/o damaris lower hips radiated to damaris lower extremities pain burning 10 out 10, gave Dilaudid 2mg IVP. See EMAR for pain reassessment. Call light w/in reach. Continue to monitor pt.
[2016-10-01] MEDS: ZOLPIDEM TARTRATE 5 MG TABLET PO PRN (22:17)
--- NOTE | 2016-10-01 23:43 | NUR ---
ROUNDS; WOUND VAC MACHINE OF LEFT SIDE BUTTOCK LEAKAGE -Enforced left side of buttock of wound vac machine with Tegaderm-now in place,drains well. -Pt denies any chest pain,pain,sob,or any acute distress. PICC line rt upper arm and rt hand, patent, no s/s any infiltration noted. IVF D5NS @ 120ml/hr. Pandey cath w/ gravity drains deborah urine output. [address] both buttocks both drains light brownish drainage. All safety measures in place. Call light w/in reach. Continue to monitor pt.
[2016-10-02 00:22] VITALS: BP_SYST 113
[2016-10-02] MEDS: HYDROmorphone 2 MG/ML VIAL IVP PRN ×5 (01:39→20:35)
--- NOTE | 2016-10-02 01:39 | NUR ---
PAIN MEDICATION ADMINISTERED -Pt is c/o damarsi lower hips radiated to damaris lower extremities pain burning 10 out 10, gave Dilaudid 2mg IVP. See EMAR for pain reassessment. Call light w/in reach. Continue to monitor pt.
[2016-10-02 04:56] VITALS: BP_SYST 120
[2016-10-02] MEDS: PIPERACILLIN/TAZO 2.25G/DEX-IS 50 ML IV SCH ×3 (05:39→17:34)
--- NOTE | 2016-10-02 05:39 | NUR ---
PAIN MEDICATION ADMINISTERED -Pt is c/o damaris lower hips radiated to damaris lower extremities pain sharp 10 out 10, gave Dilaudid 2mg IVP. See EMAR for pain reassessment. Call light w/in reach. Continue to monitor pt.
[2016-10-02] MEDS: D5NS 1,000 ML IV SCH ×4 (05:40→20:52)
[2016-10-02] MEDS: INSULIN ASPART 100 UNITS/ML, 10 ML VIAL (NovoLOG) SUBCUT PRN ×3 (05:59→20:46)
[2016-10-02 06:21] LABS: BASOPHILS # (AUTO) 0.1 K/uL (0.0-0.2); BASOPHILS % (AUTO) 0.6 % (0.0-2.0); EOSINOPHILS # (AUTO) 0.9 K/uL (0.0-0.4); EOSINOPHILS % (AUTO) 9.1 % (0.0-4.0); HEMATOCRIT 24.7 % (36-54); HEMOGLOBIN 7.5 g/dL (14.0-18.0); LYMPHOCYTES # (AUTO) 1.8 K/uL (1.0-5.5); LYMPHOCYTES % (AUTO) 17.6 % (20.5-51.5); MEAN CORPUSCULAR HEMOGLOBIN 22 pg (27-31); MEAN CORPUSCULAR HGB CONC 30 % (32-36); MEAN CORPUSCULAR VOLUME 73 fL (79.0-98.0); MONOCYTES # (AUTO) 0.8 K/uL (0.0-1.0); MONOCYTES % (AUTO) 7.4 % (1.7-9.3); NEUTROPHILS # (AUTO) 6.7 K/uL (1.8-7.7); NEUTROPHILS % (AUTO) 65.3 % (40.0-70.0); PLATELET COUNT (AUTO) 518 K/uL (130-430); RED BLOOD CELL COUNT(AUTO) 3.39 MIL/uL (4.2-6.2); RED CELL DISTRIBUTION WIDTH 21.3 % (9.0-15.0); WHITE BLOOD COUNT (AUTO) 10.3 K/uL (4.8-10.8)
--- NOTE | 2016-10-02 06:38 | NUR ---
CLOSING NOTES; -Pt is resting in bed. No s/s any chest pain,pain,sob,or any acute distress noted. PICC line rt upper arm and rt hand, patent, no s/s any infiltration noted. Saline miroslava of left hand patent, no s/s any infiltration after flushed w/ NS. Pandey cath w/ gravity drains deborah urine output. [address] both buttocks both drains light brownish drainage. Contact isolation for MRSA nares and MDRO and ESBL urine. All safety measures in place. Call light w/in reach. Will endorse to oncoming nurse to continue care.
[2016-10-02 06:43] LABS: CALCIUM 8.3 mg/dL (8.4-11.0); CREATININE 1.09 mg/dL (0.55-1.30); POTASSIUM 3.6 mmol/L (3.5-5.1)
--- NOTE | 2016-10-02 06:45 | NUR ---
EMPTIED 150 ML PASTY DARK GREEN STOOL FROM COLOSTOMY.
[2016-10-02 08:00] VITALS: BP_SYST 116
[2016-10-02] MEDS: metFORMIN HCL 500 MG TABLET PO SCH ×2 (08:21→17:34)
[2016-10-02] MEDS: AMIODARONE HCL 200 MG TABLET PO SCH ×2 (08:23→20:35)
[2016-10-02] MEDS: CLOPIDOGREL BISULFATE 75 MG TABLET PO SCH (08:23)
[2016-10-02] MEDS: FERROUS SULFATE 325 MG TABLET.DR PO SCH ×2 (08:23→20:35)
[2016-10-02] MEDS: DULoxetine HCL 30 MG CAPSULE.DR (CYMBALTA) PO SCH (08:23)
--- NOTE | 2016-10-02 10:00 | NUR ---
Received pt a/o, pt with multiple wound vac x2 to damaris bottom, wound dressing change be done today and culture taken to lab, pt bed bound, on contact iso for multiple bacterials, archer cath to gravity pt with right lower quad colostomy, pt denied pain, repositioned q 2hr, continue to monitor.
[2016-10-02 13:18] VITALS: BP_SYST 133
--- NOTE | 2016-10-02 14:47 | NUR ---
Dressing changes done to damaris bottoms and left heel, a new wound vac applied and culture collected respectively on damaris bottoms, sent to the lab, was assisted by the charge nurse, pt tolerated dressing and complied, rn given report to continue care.
--- NOTE | 2016-10-02 15:38 | NUR ---
PATIENT CARE ASSUMED. PATIENT IS ASSESSED, NO SIGNS OF DISTRESS NOTED.
[2016-10-02 16:10] VITALS: BP_SYST 120
--- NOTE | 2016-10-02 18:00 | NUR ---
BLOOD SUGAR 130. NO COVERAGE DUE. COLOSTOMY BAG IS CHANGED FOR COMFORT.
--- NOTE | 2016-10-02 19:25 | NUR ---
OPENING NOTES RECEIVED REPORT AT BEDSIDE FROM DAYSHIFT NURSE. PATIENT RESTING. NO ACUTE S/S OF ACUTE DISTRESS NOTED. BED IN LOWEST POSITION, BED ALARM ON, CALL LIGHT WITHIN REACH. WILL CONTINUE TO MONITOR.
[2016-10-02 19:35] VITALS: BP_SYST 135
[2016-10-02] MEDS: VANCOMYCIN HCL 1,500 MG in NS 250 ML IV SCH (20:32)
[2016-10-02] MEDS: POTASSIUM CHLORIDE 10 MEQ TAB.PRT.SR PO PRN (20:33)
[2016-10-02] MEDS: ATORVASTATIN 20 MG TABLET PO SCH (20:34)
--- NOTE | 2016-10-02 20:35 | NUR ---
ROUNDS PATIENT IS RESTING, AND ASKED FOR PAIN MEDICATION WITH PAIN 7 OUT OF 10. PATIENT WAS MEDICATED PER ORDERS. NO ACUTE S/S OF ACUTE DISTRESS NOTED. BED IN LOWEST POSITION, BED ALARM ON, CALL LIGHT WITHIN REACH. WILL CONTINUE TO MONITOR.
[2016-10-02] MEDS: ZOLPIDEM TARTRATE 5 MG TABLET PO PRN (22:25)
--- NOTE | 2016-10-02 22:28 | NUR ---
WOUND VAC SEAL LEAK WOUND VAC IS INDICATING SEAL LEAK, WILL REDRESS.
[2016-10-03] VITALS (7 sets, daily range): BP systolic 113–134
[2016-10-03] MEDS: PIPERACILLIN/TAZO 2.25G/DEX-IS 50 ML IV SCH ×5 (00:03→23:18)
--- NOTE | 2016-10-03 00:19 | NUR ---
ROUNDS PATIENT IS SLEEPING COMFORTABLY, WITH VISIBLE RISE AND FALL OF CHEST NOTED. IV ANTIBIOTICS ARE INFUSING.WOUND VAC X2 ARE IN PLACE ARE WORKING PROPERLY WITH A TIGHT SEAL. FALL PRECAUTIONS IN PLACE, CALL LIGHT WITHIN REACH. WILL CONTINUE TO MONITOR FREQUENTLY.
[2016-10-03] MEDS: HYDROmorphone 2 MG/ML VIAL IVP PRN ×6 (00:48→20:35)
--- NOTE | 2016-10-03 02:10 | NUR ---
ROUNDS PATIENT IS SLEEPING, VISIBLE RISE AND FALL OF CHEST NOTED. IV INFUSING, WOUND VACS OPERATING PROPERLY. FALL PRECAUTIONS IN PLACE. NO ACUTE S/S OF DISTRESS NOTED. CALL LIGHT WITHIN REACH. WILL CONTINUE TO MONITOR.
[2016-10-03] MEDS: D5NS 1,000 ML IV SCH ×4 (04:05→23:17)
--- NOTE | 2016-10-03 04:29 | NUR ---
ROUNDS PATIENT IS NOW AFEBRIL, AWAKE, ALERT AND ORIENTED X4. PATIENT IS CALM AND RESTING IN SEMI-CUELLAR'S POSITION. LEFT LEG DRESSING WAS REDRESSED. NO ACUTE S/S OF DISTRESS NOTED. FALL PRECAUTIONS IN PLACE, BED ALARM ON, CALL LIGHT WITHIN REACH. WILL CONTINUE TO MONITOR FREQUENTLY. Addendum: 10/03/16 at 0513 by Vivian Dubose RN WRONG PATIENT
--- NOTE | 2016-10-03 05:13 | NUR ---
EMPTIED COLOSTOMY BAG EMPTIED PATIENTS COLOSTOMY BAG, 100ML OUTPUT, LOOSE, GREEN/BROWN. MEDICATED PATIENT FOR PAIN 10/10. PATIENT IS RESTING IN SEMI-CUELLAR'S, NO S/S OF ACUTE DISTRESS NOTED. BED IN LOWEST POSITION, BED ALARM ON, CALL LIGHT WITHIN REACH, WILL CONTINUE TO MONITOR.
[2016-10-03] MEDS: INSULIN ASPART 100 UNITS/ML, 10 ML VIAL (NovoLOG) SUBCUT PRN ×2 (06:05→21:49)
--- NOTE | 2016-10-03 06:36 | NUR ---
CLOSING NOTES PATIENT IS RESTING IN SEMI-CUELLAR'S POSITION IN BED. IV PATENT AND INFUSING. PICC LINE PATENT AND WITH BLOOD RETURN. COLOSTOMY BAG EMPTIED AND SEAL SECURE. LEFT AND RIGHT WOUND VAC ARE SEALED AND RUNNING PER ORDERS OF 125. NO ACUTE S/S OF DISTRESS NOTED. BED IN LOWEST POSITION, BED ALARM ON, CALL LIGHT WITHIN REACH. WILL ENDORSE CARE TO DAY SHIFT NURSE.
--- NOTE | 2016-10-03 07:25 | NUR ---
WOUND VAC LEAK DETECTED ON LEFT SIDE. PUT PRESSURE OF HAND TOWELS WELL SILVER CLOTH PRESENT. SEAL OBTAINED.
--- NOTE | 2016-10-03 08:45 | NUR ---
SEAL LEAK DETECTED ON LEFT SIDE, PATIENT REPOSITIONED SELF. REINFORCED WITH PAPER TOWEL STACK AND SEAL ACHIEVED.
[2016-10-03] MEDS: DULoxetine HCL 30 MG CAPSULE.DR (CYMBALTA) PO SCH (08:49)
[2016-10-03] MEDS: metFORMIN HCL 500 MG TABLET PO SCH ×2 (08:49→17:59)
[2016-10-03] MEDS: FERROUS SULFATE 325 MG TABLET.DR PO SCH ×2 (08:49→20:37)
[2016-10-03] MEDS: CLOPIDOGREL BISULFATE 75 MG TABLET PO SCH (08:49)
[2016-10-03] MEDS: AMIODARONE HCL 200 MG TABLET PO SCH ×2 (08:50→20:37)
[2016-10-03] MEDS: LORazepam 2 MG/ML VIAL IVP PRN (08:51)
--- NOTE | 2016-10-03 11:50 | NUR ---
EMPTIED COLOSTOMY BAG AT THIS TIME. 2OO ML OF DARK STOOL OUT.
--- NOTE | 2016-10-03 12:45 | NUR ---
WOUND VAC LEAK. CHANGE OF WOUND VAC. SEAL 125 MMHG OBTAINED.
--- NOTE | 2016-10-03 13:45 | NUR ---
WOUND VAC LEAK ON LEFT SIDE DETECTED.
--- NOTE | 2016-10-03 16:45 | NUR ---
WOUND VAC SEAL LEAK ON RIGHT SIDE DETECTED.
--- NOTE | 2016-10-03 17:45 | NUR ---
SECOND WOUND VAC DRESSING CHANGE WITH ADR. SEAL OF 125MMHG ACHIEVED.
--- NOTE | 2016-10-03 19:54 | NUR ---
OPENING NOTE Pt. and bedside report received from day shift nurse. Pt. is awake, resting quietly in bed with c/o pain. Pt. educated that pain medication is not due yet, pt. verbalized understanding and stated "okay I'll wait." IVF infusing as ordered to [facility] PICC, dressing due to be changed today. Wound vac on as ordered, working well. Safety precautions in place. Bed alarm on. Room near nurses station. Educated pt. to use call light for needs. Will continue to monitor.
[2016-10-03] MEDS: ATORVASTATIN 20 MG TABLET PO SCH (20:37)
--- NOTE | 2016-10-03 21:00 | NUR ---
PAIN/CIRO PICC DRESSING CHANGED Late entry due to pt. care. Pt. c/o severe pain; Pt. medicated with Dilaudid IVP as ordered for severe pain. Due meds admininstered as ordered. Pt. tolerated well. See EMAR. CIRO PICC dressing changed; sterile technique used. Pt. tolerated well. Safety and isolation precautions in place. Denies any other needs at this time. Educated on how to call for needs, able to use call light. Bed alarm on. Will continue to monitor.
[2016-10-03] MEDS: ZOLPIDEM TARTRATE 5 MG TABLET PO PRN (21:50)
--- NOTE | 2016-10-03 21:58 | NUR ---
ACCUCHECK/SLEEPING AID Blood sugar 151; 2 units of insulin administered as ordered. See EMAR. Pt. requested sleeping aid; pt. given Ambien PO as ordered. See EMAR. No s/s of acute distress. Educated pt. regarding medication and s/e. Pt. requested warm blanket. Safety and isolation precautions in place. Call light on lap. Will continue to monitor.
--- NOTE | 2016-10-03 23:38 | NUR ---
ZOSYN/REPOSITIONING Pt. repositioned with pillows as support. Due Zosyn IVPB administered as ordered to CIRO PICC. No s/s of acute distress. Safety precautions in place. Call light to right hand. Bed alarm on. Room near nurses station. Will continue to monitor.
[2016-10-04] VITALS (7 sets, daily range): BP systolic 105–128
--- NOTE | 2016-10-04 00:11 | NUR ---
REQUESTED WATER Requested ice water and asked for "pain shot." I educated pt. that it cannot be given yet due to the ordered frequency. Pt. verbalized understanding. Safety precautions in place. Call light to left hand. Wound vacs on as ordered and working well. Bed alarm on. Will continue to monitor.
[2016-10-04] MEDS: HYDROmorphone 2 MG/ML VIAL IVP PRN ×5 (00:42→22:13)
--- NOTE | 2016-10-04 00:54 | NUR ---
PAIN Pt. c/o severe pain "03/30" "everywhere." Pt. medicated with Dilaudid 2mg IVP as ordered PRN for severe pain. See eMAR. Educated pt. regarding medication and s/e. Pt. verbalized understanding. Denies any other needs at this time. Safety precautions in place. Bed alarm on. Encouraged pt. to use call light for needs. Call light placed next to pt.'s left hand. Will continue to monitor.
--- NOTE | 2016-10-04 02:05 | NUR ---
ROUNDS Pt. is resting quietly in bed with eyes closed. Respirations are even and unlabored with visible chest rise and fall. No s/s of acute distress. Safety precautions in place. Bed alarm on. Call light to left hand. Will continue to monitor.
--- NOTE | 2016-10-04 03:10 | NUR ---
ROUNDS Pt. is resting quietly in bed with eyes closed. Respirations are even and unlabored with visible chest rise and fall. No s/s of acute distress. IVF infusing as ordered. Wound vacs intact and working well as ordered. Safety precautions in place. Call light to left hand. Bed alarm on. Room near nurses station. Will continue to monitor.
--- NOTE | 2016-10-04 03:38 | NUR ---
REQUESTED WARM WASHCLOTH Pt. requested warm and dry washcloth to wash/dry his face. I offered to do it for him but pt. stated he was able to do it himself. Pt. denies any other needs at this time. Encouraged pt. to use call light for needs. Bed alarm on. Room near nurses station. Will continue to monitor.
--- NOTE | 2016-10-04 03:58 | NUR ---
REPOSITIONING Repositioned with pillows as support. Pt. tolerated well. Denies any other needs at this time. Safety precautions in place. Bed alarm on. Will continue to monitor.
--- NOTE | 2016-10-04 04:41 | NUR ---
PAIN Pt. c/o "01/28" pain. Pt. medicated with Dilaudid 2mg IVP as ordered PRN for severe pain. See eMAR. Educated pt. regarding medication and s/e. Pt. verbalized understanding. Safety precautions in place. Bed alarm on. Room near nurses station. Call light on lap. Will continue to monitor.
[2016-10-04] MEDS: PIPERACILLIN/TAZO 2.25G/DEX-IS 50 ML IV SCH ×3 (05:38→18:04)
--- NOTE | 2016-10-04 06:12 | NUR ---
ACCUCHECK/CLOSING NOTES Blood sugar 132; no insulin was given per sliding scale order. Due Zosyn IVPB infusing as ordered to CIRO PICC; dressing is CDI. Colostomy bag to right side of abdomen is intact. Wound vac to left sacral area on as ordered; working well. Wound vac to right sacral area on as ordered, working well. Safety and isolation precautions maintained throughout shift. All needs met throughout shift. Call light to left hand. Bed alarm on. Airloss mattress working well. Will endorse care to oncoming day shift nurse.
--- NOTE | 2016-10-04 07:13 | NUR ---
WOUND VAC AIR LEAKING Repositioned pt. as requested. Wound vac to right sacral area alarming due to air leak. Reinforced with tegaderm. Endorsed to GLORIA Reinoso to follow up.
--- NOTE | 2016-10-04 08:00 | NUR ---
Rounds to patient. Given am medication. Ativan included for anxiety patient having about next treatment location.
[2016-10-04] MEDS: CLOPIDOGREL BISULFATE 75 MG TABLET PO SCH (09:10)
[2016-10-04] MEDS: AMIODARONE HCL 200 MG TABLET PO SCH ×2 (09:10→22:15)
[2016-10-04] MEDS: LACTOBACILLUS RHAMNOSUS GG 1 CAP CAPSULE PO SCH ×2 (09:10→22:13)
[2016-10-04] MEDS: FERROUS SULFATE 325 MG TABLET.DR PO SCH ×2 (09:11→22:13)
[2016-10-04] MEDS: DULoxetine HCL 30 MG CAPSULE.DR (CYMBALTA) PO SCH (09:11)
[2016-10-04] MEDS: LORazepam 2 MG/ML VIAL IVP PRN ×2 (09:11→15:02)
[2016-10-04] MEDS: metFORMIN HCL 500 MG TABLET PO SCH ×2 (09:13→18:03)
--- NOTE | 2016-10-04 10:40 | NUR ---
Patient given prn pain medication at this time.
[2016-10-04] MEDS: D5NS 1,000 ML IV SCH ×2 (11:29→22:24)
--- NOTE | 2016-10-04 14:00 | NUR ---
During reposition 5-10 minutes to regain seal at 125 mmHg on left nancy. To aid seal typewriter mechanic placed pressure to site of suction bulb.
--- NOTE | 2016-10-04 15:30 | NUR ---
Patient given prn ativan as calling out and shouting about an item he dropped on the floor, a cap. Patient also removed and threw blankets on the ground. No items on the floor at this time. Assisted patient to replace gown, obtain his head charger, and cover with blankets.
--- NOTE | 2016-10-04 16:53 | NUR ---
Spoke with Abi in Case Management regarding d/c plan as requested by Doctor Tre. Requires finalized sensitivity. Currently only preliminary results indicate gram negative rods at both wound sites. If organism turns out to be the same the wound will require only one wound vac and the patient will be able to transition to [facility]. Otherwise, Early, until wounds heal.
--- NOTE | 2016-10-04 17:30 | NUR ---
Blood sugar verification. Patient requesting medication for pain.
--- NOTE | 2016-10-04 20:36 | NUR ---
WOUND VAC intact to left sacral areas no leaking with light color brown fluid return assist for position change & tolerated .
--- NOTE | 2016-10-04 20:38 | NUR ---
WOUND VAC. to Right sacral areas intact no leaking noted , assist for position change & tolerated , light color brown fluid return noted / .
[2016-10-04] MEDS: ZOLPIDEM TARTRATE 5 MG TABLET PO PRN (22:14)
[2016-10-04] MEDS: ATORVASTATIN 20 MG TABLET PO SCH (22:14)
--- NOTE | 2016-10-04 22:35 | NUR ---
AMBIEN 10 MG PO given per patient request for sleep aide .
--- NOTE | 2016-10-04 22:36 | NUR ---
DILAUDID 2 MG IVP administer for general pain 12/28 & helpful , 2 n
[2016-10-05] MEDS: PIPERACILLIN/TAZO 2.25G/DEX-IS 50 ML IV SCH ×5 (00:07→23:21)
--- NOTE | 2016-10-05 00:10 | NUR ---
Hourly Rounding patient resting HOB elevated , assist encourage position change no complaints made .
[2016-10-05] MEDS: LORazepam 2 MG/ML VIAL IVP PRN (01:31)
--- NOTE | 2016-10-05 01:38 | NUR ---
LORAZEPAM 2 MG IVP given for agitation anxiety & helpful , patient comfortable this hour .
[2016-10-05] MEDS: HYDROmorphone 2 MG/ML VIAL IVP PRN ×5 (03:48→21:38)
[2016-10-05 03:57] VITALS: BP_SYST 134
--- NOTE | 2016-10-05 05:45 | NUR ---
Wound vac intact no leaking Reposition & Turning patient pillows used for off loading skin dry warm patient is alert no complaints made .
[2016-10-05] MEDS: D5NS 1,000 ML IV SCH ×3 (06:26→23:22)
[2016-10-05 08:00] VITALS: BP_SYST 122
--- NOTE | 2016-10-05 08:00 | NUR ---
initial notes rec patient asleep but arousable to stimui.ivl on the l forearm intact. no infiltration noted. picc line on the r upper arm double lumen intact. no infiltration noted. pt with wound vac bilateral buttocks and intact.resp easy and unlabored.bed in low position and side rails up and locked. call light within reached and knows when to call for assistance.
--- NOTE | 2016-10-05 10:00 | NUR ---
rounds seen by dr sow and with orders. sleeps at intervals. no acute distress noted.
[2016-10-05] MEDS: CLOPIDOGREL BISULFATE 75 MG TABLET PO SCH (10:09)
[2016-10-05] MEDS: FERROUS SULFATE 325 MG TABLET.DR PO SCH ×2 (10:09→20:34)
[2016-10-05] MEDS: DULoxetine HCL 30 MG CAPSULE.DR (CYMBALTA) PO SCH (10:09)
[2016-10-05] MEDS: LACTOBACILLUS RHAMNOSUS GG 1 CAP CAPSULE PO SCH ×2 (10:09→20:34)
[2016-10-05] MEDS: metFORMIN HCL 500 MG TABLET PO SCH ×2 (10:15→17:42)
[2016-10-05] MEDS: AMIODARONE HCL 200 MG TABLET PO SCH ×2 (10:16→20:33)
--- NOTE | 2016-10-05 11:00 | NUR ---
rounds seen by dr briceno and at bedside and assessed patient wounds.
--- NOTE | 2016-10-05 11:40 | NUR ---
Wound Re-Evaluation: Late note for 1140 secondary to patient care. Patient awake, alert, oriented, and received in a Jansen Bed with an IsoFlex GEO mattress with low air-loss therapy. Skin is poor. Blood Culture x 2 in progress. Intrinsic factors that delay wound healing: Diabetes Mellitus. Extrinsic factors: decreased mobility. Patient presents with: 1) Left Buttocks Area: Pressure Ulcer, present on admission, recently debrided by Dr. Grimes. Wound bed is 50% yellow tissue, 50% pink tissue. No odor, no drainage. Undermining present from 10-1 o'clock, deepest 5.6 cm at 11 o'clock. Measures 6.5 cm x 9.3 cm x 5.5 cm. 2) Right Buttocks Area: Pressure Ulcer, present on admission, recently debrided by Dr. Grimes. Wound bed is 50% yellow tissue, 50% pink tissue. No odor, no drainage. Undermining present from 7-12 o'clock, deepest 2.7 cm at 12 o'clock. Measures 6.5 cm x 6.2 cm x 2.6 cm. Recommend continue: Cleanse wounds with normal Saline. Pat dry. Put SurePrep onto floresita-wounds. Put Hydrogel onto wound beds. Place Silver granufoam into wound beds. Cover with Vac drape. Cut hole in drape. Apply SurePrep to buttocks and thighs, and place Vac drape up to a non-bony area of anterior thighs. Run black granufoam up to thighs, and cover with Vac drape. Attach suction attachment. Attach to wound vac and run at 125 mmHg, continuous. Change vac dressings q Wednesday/Wednesday/Wednesday, and as needed for dressing dislodgment. 3) Left Heel: Unstageable Pressure Ulcer, present on admission. Recently debrided by Dr. Grimes. Wound bed is 60% yellow tissue, 40% pink tissue. No odor, no drainage. Floresita-wound intact. Measures 3.0 cm x 4.3 cm, superficial depth. Recommend continue: Continue to monitor. Reinforce dressing prn. Nursing to follow up with Dr. Grimes for nursing wound care orders. 4) Right Distal Lateral Lower Extremity, Superior to Malleolus: Chronic wound with 100% black eschar, and scar tissue, present on admission. No odor, no drainage. Floresita-wound intact. 5) Left Distal Lateral Lower Extremity: Scar tissue, present on admission. No odor, no drainage. 6) Right Great Toe Chronic wound with 100% black eschar, present on admission. No odor, no drainage. Floresita-wound intact. Recommend continue: No dressings needed. Continue to monitor for worsening condition. Contact wound career placement specialist if areas worsen. 7) Buttocks: Blanchable redness. Recommend continue: Cleanse area with mild soap and water. Pat dry. Apply moisture barrier cream to buttocks qid and prn for soiling. Also recommend: Reposition patient side to side only every 2 hours with pillow support, place bilateral heels into Heelift Boots. Offload pressure areas with pillows for pressure redistribution. Use moisture barrier cream on buttocks and other moisture susceptible areas qid and prn for soiling. Maintain patient on low air-loss therapy. Place Heelift Boot foam blocks on lateral aspects of Heelift Boots to help prevent external rotation of bilateral lower extremities (use pillows as needed if Heelift Boots alone do not prevent external rotation). Left buttock wound culture results: Acinetobacter Baumannii/Haemol, Moderate SECTION CREWS ACTIVITIES CLERK, and Providencia Stuartii, moderate, and few MRSA. Right Buttock wound culture results: Acinetobacter Baumannii/Haemol, Moderate SECTION CREWS ACTIVITIES CLERK. Left buttock wound has additional organisms, so, keep wounds on separate wound vacs. Addendum: 10/05/16 at 1706 by Carlton Irizarry RN For Left Heel Wound (3), treatment should be: Cleanse wound with normal Saline. Pat dry. Put SurePrep onto floresita-wound. Put Hydrogel onto wound bed. Cover with foam dressing. Perform wound care daily, and and needed for dressing soiling or dislodgment.
[2016-10-05] MEDS ORDERED: HYDROmorphone 2 MG/ML VIAL IVP ONE ×2 (11:45→12:00)
[2016-10-05 12:00] VITALS: BP_SYST 140
--- NOTE | 2016-10-05 12:00 | NUR ---
rounds wounds care rendered with yuridia at the bedside. no acute distress noted. no hy[po hyperglycemic reaction noted.
--- NOTE | 2016-10-05 14:00 | NUR ---
rounds sleeps at intervals otherwise will asked for pain meds if available.
[2016-10-05 15:23] VITALS: BP_SYST 124
--- NOTE | 2016-10-05 16:00 | NUR ---
rounds dr sow was called re mrsa of the r buttocks and microsoft bi architect of damaris wounds. stated to call dr husain.
--- NOTE | 2016-10-05 16:20 | NUR ---
PAGED DR ESTRADA FOR ORDERS. SPOKE WITH STEVIE
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
--- NOTE | 2016-10-05 17:37 | NUR ---
PAGED DR RICH FOR ORDERS. SPOKE WITH ALEC
--- NOTE | 2016-10-05 18:30 | NUR ---
closing notes dr husain called and relayed damaris buttocks result. stated will adjust abx in am. no acute distress. no hypo/ hyperglycemic reaction noted. stable needs attended.
--- NOTE | 2016-10-05 19:15 | NUR ---
initial nursing notes: Patient is awake with periods of confusion. Reoriented patient to place, time and reason for being in the hospital. Kept bed alarm on and siderails up X 3 for patient's safety. Patient has a PICC line on the RUE, where IV fluid is infusing.
[2016-10-05 20:08] VITALS: BP_SYST 139
[2016-10-05] MEDS: ATORVASTATIN 20 MG TABLET PO SCH (20:33)
--- NOTE | 2016-10-05 21:15 | NUR ---
nursing rounds: Patient is watching television. Patient has a colostomy bag and 2 wound vacs for the wound buttocks, draining brownish output. Patient is being repositioned every 2 hours.
--- NOTE | 2016-10-05 23:15 | NUR ---
nursing rounds: Patient received IV pain medication for sacral pain. Pain medication was effective. Reminded patient that he will be NPO after midnight for excisional debridement of hip and heel ulcers.
[2016-10-05 23:55] VITALS: BP_SYST 132
--- NOTE | 2016-10-06 01:15 | NUR ---
nursing rounds: Patient is asleep. Patient has no shortness of breath.
[2016-10-06] MEDS: HYDROmorphone 2 MG/ML VIAL IVP PRN ×4 (02:24→17:38)
--- NOTE | 2016-10-06 03:15 | NUR ---
nursing rounds: Patient received IV pain medication for hip pain. Pain medication was effective.
[2016-10-06 04:45] VITALS: BP_SYST 128
--- NOTE | 2016-10-06 05:15 | NUR ---
nursing rounds: Patient calmly resting in bed. Call light within patient's reach.
[2016-10-06] MEDS: PIPERACILLIN/TAZO 2.25G/DEX-IS 50 ML IV SCH ×2 (05:20→13:20)
[2016-10-06] MEDS: D5NS 1,000 ML IV SCH (07:05)
--- NOTE | 2016-10-06 07:43 | NUR ---
closing nursing notes: Patient is awake and alert. Patient is in no acute respiratory distress. No episodes of fall and no injuries throughout the overnight associate. Provided nursing report to incoming morning shift nurse, GLORIA Vanegas, at patient's bedside.
[2016-10-06] MEDS: metFORMIN HCL 500 MG TABLET PO SCH ×2 (08:00→18:11)
--- NOTE | 2016-10-06 08:00 | NUR ---
initial notes rec patient awake alert with periods of confusion.hob elevated. ivf infusing well on the r upper arm picc line double lumen. no infiltration noted. on contact isolation for mrsa nares, right buttocks, cross tie turner both buttocks. with o2 at 2 liters via nasal canula and sat at 94 %. resp easy and unlabored. npo maintained for debridemnt of sacral wound. bed in low position and side rails up and locked. call light withn reached and pt close to the nurses station. will continue to monitor patient.
[2016-10-06 08:26] VITALS: BP_SYST 146
--- NOTE | 2016-10-06 08:48 | NUR ---
DISCHARGE PLANNING DC order to transfer to [facility] when bed available. Spoke with Stephon Guerrero patient assigned to room 312A at Stephon Gomez RN to report [phone], bed available anytime. GLORIA Vanegas made aware and will return call to DCP to arrange time for transport. Ordered Radiology CD. Placed transportation packet in nurse station. Addendum: 10/06/16 at 1511 by Stella Ansari DP Per GLORIA Vanegas called [facility] ambulance [phone] Sharlene arranged ACLS transport pickers material handlers soonest available 6pm pickers material handlers.
--- NOTE | 2016-10-06 10:00 | NUR ---
rounds pt was picked up for debridement of the wound via bed to sx. no acute distress noted.
[2016-10-06] MEDS ORDERED: LR 1,000 ML IV SCH (11:11)
[2016-10-06] MEDS ORDERED: METOCLOPRAMIDE HCL 10 MG/2 ML VIAL IVP PRN (11:15)
[2016-10-06] MEDS ORDERED: MORPHINE 4 MG/ML INJ. SYRINGE IVP PRN ×3 (11:15)
[2016-10-06 12:30] VITALS: BP_SYST 134
--- NOTE | 2016-10-06 12:30 | NUR ---
rounds pt was back foer debridemnt of the wound of both buttocks and l heel. pt will start eating lunch . no acute distress noted.
[2016-10-06] MEDS: FERROUS SULFATE 325 MG TABLET.DR PO SCH (13:54)
[2016-10-06] MEDS: CLOPIDOGREL BISULFATE 75 MG TABLET PO SCH (13:54)
[2016-10-06] MEDS: LACTOBACILLUS RHAMNOSUS GG 1 CAP CAPSULE PO SCH (13:54)
[2016-10-06] MEDS: DULoxetine HCL 30 MG CAPSULE.DR (CYMBALTA) PO SCH (13:54)
[2016-10-06] MEDS: AMIODARONE HCL 200 MG TABLET PO SCH (13:57)
--- NOTE | 2016-10-06 14:30 | NUR ---
rounds dr helm was called for d/c order to ann. no acute distress noted.
--- NOTE | 2016-10-06 15:23 | NUR ---
MD LOU SPOKE WITH HOSP EXCHANGED TO PAGE DR CRUZ PER GLORIA COLLINS.
--- NOTE | 2016-10-06 16:30 | NUR ---
rounds wound vac was removed and tender wets was applied on the buttocks wound as per yuridia wound nurse. dressing changed done on the l heel and pics were taken as well on the said wound and l heel and l leg .
[2016-10-06 17:36] LABS: BASOPHILS # (AUTO) 0.1 K/uL (0.0-0.2); BASOPHILS % (AUTO) 0.7 % (0.0-2.0); EOSINOPHILS # (AUTO) 0.2 K/uL (0.0-0.4); HEMATOCRIT 29.4 % (36-54); HEMOGLOBIN 9.2 g/dL (14.0-18.0); LYMPHOCYTES # (AUTO) 1.5 K/uL (1.0-5.5); LYMPHOCYTES % (AUTO) 14.8 % (20.5-51.5); MEAN CORPUSCULAR HEMOGLOBIN 24 pg (27-31); MEAN CORPUSCULAR HGB CONC 31 % (32-36); MEAN CORPUSCULAR VOLUME 76 fL (79.0-98.0); MONOCYTES # (AUTO) 0.4 K/uL (0.0-1.0); MONOCYTES % (AUTO) 3.8 % (1.7-9.3); NEUTROPHILS # (AUTO) 8.3 K/uL (1.8-7.7); NEUTROPHILS % (AUTO) 78.7 % (40.0-70.0); PLATELET COUNT (AUTO) 710 K/uL (130-430); RED BLOOD CELL COUNT(AUTO) 3.87 MIL/uL (4.2-6.2); RED CELL DISTRIBUTION WIDTH 22.7 % (9.0-15.0); WHITE BLOOD COUNT (AUTO) 10.5 K/uL (4.8-10.8)
[2016-10-06 17:43] LABS: CALCIUM 8.3 mg/dL (8.4-11.0); CREATININE 1.36 mg/dL (0.55-1.30); POTASSIUM 5.3 mmol/L (3.5-5.1)
[2016-10-06] MEDS ORDERED: SODIUM POLYSTYRENE SULFONATE 15 GM/60 ML UDBTL PO ONE (18:00)
[2016-10-06 18:29] VITALS: BP_SYST 134
--- NOTE | 2016-10-06 19:00 | NUR ---
closing notes pt was discharged to [facility]. report given to lona alcantar at the said facility. stable . no sob noted.
[2016-10-06] MEDS ORDERED: AMIKACIN SULFATE 500 MG in D5W 100 ML IV SCH (21:00)
[2016-10-06] MEDS ORDERED: VANCOMYCIN HCL 1,500 MG in NS 250 ML IV SCH (21:00)
== END 2016-10-06 19:20 | DRG 853 ==
LOC: SED 12:05 → STU 14:41 → SMU 09-30 19:29
PROVIDERS: ADMIT General Practice; ATTEND Internal Medicine Hospice and Palliative Medicine
PROC: 0QB60ZZ Excision of Right Upper Femur, Open Approach (ICD-10-PCS; 2016-09-29)
PROC: 0JBR0ZZ Excision of Left Foot Subcutaneous Tissue and Fascia, Open Approach (ICD-10-PCS; 2016-09-29)
PROC: 0JBM0ZZ Excision of Left Upper Leg Subcutaneous Tissue and Fascia, Open Approach (ICD-10-PCS; principal; 2016-09-29 10:30)
DX: A41.9 Sepsis, unspecified organism (principal); G93.41 Metabolic encephalopathy; N17.0 Acute kidney failure with tubular necrosis; L89.623 Pressure ulcer of left heel, stage 3; L89.224 Pressure ulcer of left hip, stage 4; L89.214 Pressure ulcer of right hip, stage 4; E44.0 Moderate protein-calorie malnutrition; N39.0 Urinary tract infection, site not specified; G82.20 Paraplegia, unspecified; M46.28 Osteomyelitis of vertebra, sacral and sacrococcygeal region; I48.91 Unspecified atrial fibrillation; E11.21 Type 2 diabetes mellitus with diabetic nephropathy; E11.65 Type 2 diabetes mellitus with hyperglycemia; L89.309 Pressure ulcer of unspecified buttock, unspecified stage; F32.9 Major depressive disorder, single episode, unspecified; E11.622 Type 2 diabetes mellitus with other skin ulcer; L89.159 Pressure ulcer of sacral region, unspecified stage; D50.9 Iron deficiency anemia, unspecified; E11.42 Type 2 diabetes mellitus with diabetic polyneuropathy; D75.89 Other specified diseases of blood and blood-forming organs; J44.9 Chronic obstructive pulmonary disease, unspecified; K21.9 Gastro-esophageal reflux disease without esophagitis; I10 Essential (primary) hypertension; Z79.899 Other long term (current) drug therapy; Z78.9 Other specified health status; Z22.322 Carrier or suspected carrier of Methicillin resistant Staphylococcus aureus; Z86.14 Personal history of Methicillin resistant Staphylococcus aureus infection; Z68.25 Body mass index [BMI] 25.0-25.9, adult
CPT/HCPCS: 36415; 70450-TC; 71010; 80048; 80053; 80202-TC; 80307; 81000-TC; 82272; 82962; 83605; 83735-TC; 84484; 85007; 85025; 85027; 85610-TC; 85730-TC; 86886; 86900; 86901; 87040-TC; 87070-TC; 87081; 87086; 87186-TC; 93005; 93923; 93970; 94010; 94640; 94760; 96361; 96365; 96375; 99291; A4409; A5061; A6550; G0480; G0481; G0482; J0278; J0696; J1170; J1642; J1815; J2060; J2175; J2250; J2270; J2543; J2704; J2765; J3370; J7030; J7042; J7050; J7060

== ENCOUNTER 2016-10-09 14:25 | Inpatient (IN) | payer OTHER, MEDICAID ==
[2016-10-09] VITALS (10 sets, daily range): BP systolic 115–163; BP diastolic 73–103; PULSE 80–92; RESP 20–42; TEMP 96.2–97.4; O2SAT 93–99
[~2016-10-09] VITALS: Ht 185.4 cm; Wt 78.9 kg
[~2016-10-09 14:25] MED LIST changes: +ALBU2.5V7 INH; +AMI200 PO; +BACL20TA PO; +CARV6.2554 PO; +CLOP75TA2 PO; +DICL-8 PO; +DOCU-144 PO; +ENOX40DI8 SQ; +ESZO2TAB22 PO; +FAMO40TA7 PO; +FERR-69 PO; +FURO20TA4 PO; +GABA-331 PO; +HYDR2TAB34 IVP; +INSU100V32 SUBCUT; +LACT1CAP69 PO; +LISI-600 PO; +MAG-55 PO; +MELO-271 PO; +METO-290 PO; +MIDO2.5T PO; +NITSL SL; +OXYB5TAB11 PO; +POTA20TA83 PO; +SUCR1TAB78 PO; +ZOLP10TA2 PO
--- NOTE | 2016-10-09 16:40 | NUR ---
ADMIT NOTE/Dr. Alin Gil: Received pt from [facility] to the floor with a diagnosis of prolapsed colostomy. Patient is alert and oriented by c/o severe generalized pain /. Pandey cath draining well to gravity. IV PICC intact to RUE. Pt is pale, and short of breath at this time at 42 respirations/min. Patient oriented to room, safety and call light-teach back done. Dr. Ogden paged to request for ICU transfer at this time.
--- NOTE | 2016-10-09 16:55 | NUR ---
Non-Rebreather Initiated: Pt saturating 87% on 6L via NC and patient remains tachypneic at 40 respirations/min. Patient place on non-rebreather face mask and patient is saturating 95% at this time.
--- NOTE | 2016-10-09 17:05 | NUR ---
Transfer to ICU: Transfer patient to ICU, accompanied by RN. Pt tolerates transfer well. Report given off to GLORIA Farooq. Dr. Toledo paged.
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
--- NOTE | 2016-10-09 17:30 | NUR ---
LAB WORKS AND CHEST X-RAY DONE.
--- NOTE | 2016-10-09 17:35 | NUR ---
RN NOTES: DR. BAZZI CONSULT DR. BAZZI CALLED FOR CONSULT, WITH ORDERS CARRIED OUT.
[2016-10-09 17:50] LABS: BASOPHILS % (AUTO) 0.4 % (0.0-2.0); EOSINOPHILS # (AUTO) 0.4 K/uL (0.0-0.4); EOSINOPHILS % (AUTO) 3.1 % (0.0-4.0); HEMATOCRIT 30.9 % (36-54); HEMOGLOBIN 9.7 g/dL (14.0-18.0); LYMPHOCYTES # (AUTO) 1.2 K/uL (1.0-5.5); LYMPHOCYTES % (AUTO) 9.8 % (20.5-51.5); MEAN CORPUSCULAR HEMOGLOBIN 24 pg (27-31); MEAN CORPUSCULAR HGB CONC 31 % (32-36); MEAN CORPUSCULAR VOLUME 76 fL (79.0-98.0); MONOCYTES # (AUTO) 0.4 K/uL (0.0-1.0); MONOCYTES % (AUTO) 3.2 % (1.7-9.3); NEUTROPHILS # (AUTO) 10.2 K/uL (1.8-7.7); NEUTROPHILS % (AUTO) 83.5 % (40.0-70.0); PLATELET COUNT (AUTO) 627 K/uL (130-430); RED BLOOD CELL COUNT(AUTO) 4.06 MIL/uL (4.2-6.2); RED CELL DISTRIBUTION WIDTH 25.5 % (9.0-15.0); WHITE BLOOD COUNT (AUTO) 12.2 K/uL (4.8-10.8)
[2016-10-09 17:54] LABS: CALCIUM 8.1 mg/dL (8.4-11.0); CREATININE 1.09 mg/dL (0.55-1.30); POTASSIUM 3.5 mmol/L (3.5-5.1)
--- NOTE | 2016-10-09 17:55 | NUR ---
ABG AND EKG DONE.
[2016-10-09 17:58] LABS: INR 1.2 (0.80-1.20); PROTHROMBIN TIME 12.8 SECS (9.5-12.5)
[2016-10-09 17:59] LABS: BLOOD GAS PH 7.425 (7.350-7.450)
[2016-10-09 17:59] LABS: ALBUMIN 2.1 g/dL (3.4-4.8); TOTAL BILIRUBIN 0.4 mg/dL (0.0-1.0)
[2016-10-09 18:00] LABS: ABG TOTAL HEMOGLOBIN 10.9 G/dL (12.0-18.0); BLOOD GAS BASE EXCESS -1.5 mmol/L (-3.0-3.0)
[2016-10-09 18:01] LABS: BLOOD GAS COHb% 0.6 % (0.5-1.5); BLOOD GAS HHB 18.3 % (0.0-6.0); BLOOD O2Hb% 80.5 % (94.0-97.0)
--- NOTE | 2016-10-09 18:15 | NUR ---
RN NOTES .ABG RESULTS RELAYED TO DR. RUHT
--- NOTE | 2016-10-09 18:15 | NUR ---
Dr. Avelar at bedside examining pt.
--- NOTE | 2016-10-09 18:20 | NUR ---
RN NOTES LAB WORKS RESULT RELAYED TO DR. BAZZI.
[2016-10-09 18:27] LABS: BILIRUBIN,URINE NEGATIVE (NEGATIVE); BLOOD, URINE 3+ (NEGATIVE); CLARITY/URINE CLEAR (CLEAR); COLOR,URINE YELLOW (YELLOW); GLUCOSE,URINE NEGATIVE (NEGATIVE); KETONES,URINE NEGATIVE (NEGATIVE); LEUKOCYTE ESTERASE ,URINE NEGATIVE (NEGATIVE); NITRITE, URINE NEGATIVE (NEGATIVE); PROTEIN URINE 2+ (NEGATIVE); UROBILINOGEN,URINE 0.2 (0.2-1.0)
[2016-10-09] MEDS ORDERED: D5NS 1,000 ML IV SCH ×2 (18:30→19:00)
[2016-10-09 18:41] LABS: BACTERIA,URINE FEW /HPF (None Seen); RBC,URINE 20-50 /HPF (0-3)
[2016-10-09 18:45] LABS: MUCUS,URINE 1+ /LPF (None Seen)
--- NOTE | 2016-10-09 18:50 | NUR ---
Dr. Grimes at bedside examining pt.
[2016-10-09] MEDS: HYDROmorphone 2 MG/ML VIAL IVP PRN ×2 (19:13→23:06)
--- NOTE | 2016-10-09 19:35 | NUR ---
chnage of shift.pt.assessed.pt.presents restless/agitated affect.pt.presents sob/dyspnea:o2 therapy administered via non-rebreather mask:delivered @100%o2-sat%=93%.pt.presents colostomy:rlq:w/ protruding stoma.pt.presents supra- pubic catheter:patent.pt.presents iv access:picc line:rt.bicept.pt.presents wounds:lower extremity:bilateral.pt.presents paraplegic status.call light placed w/in pt's reach.
--- NOTE | 2016-10-09 19:35 | NUR ---
Endorsement/Closing. Endorsed plan of care to Danette CASTRO via SBAR tool. Medicated pt with PRN pain medication for c/o pain in hip.
[2016-10-09] MEDS: AMIKACIN SULFATE 500 MG in D5W 100 ML IV SCH (20:09)
[2016-10-09] MEDS ORDERED: MORPHINE 2 MG/ML INJ. SYRINGE IVP PRN (20:45)
[2016-10-09] MEDS ORDERED: ONDANSETRON HCL 4 MG/2 ML VIAL IVP PRN (20:45)
[2016-10-09] MEDS ORDERED: POTASSIUM CHLORIDE 10 MEQ TAB.PRT.SR PO PRN (20:45)
[2016-10-09] MEDS ORDERED: MAGNESIUM SULFATE 50 ML IV PRN (20:45)
[2016-10-09] MEDS ORDERED: ACETAMINOPHEN 325 MG TABLET PO PRN (20:45)
[2016-10-09] MEDS ORDERED: DOCUSATE SODIUM 100 MG CAPSULE PO PRN (20:45)
--- NOTE | 2016-10-09 20:45 | NUR ---
DR SEAN Toledo notified regarding Pt's home medications. Orders received. He will review reconciled medications.
[2016-10-09] MEDS ORDERED: SSNOVOLOG SUBCUT (21:04)
[2016-10-09] MEDS ORDERED: LACTIN PO (21:04)
[2016-10-09] MEDS ORDERED: DOCU-144 PO (21:04)
[2016-10-09] MEDS ORDERED: ZOLP10TA2 PO (21:04)
[2016-10-09] MEDS ORDERED: CLOP75TA2 PO (21:04)
[2016-10-09] MEDS ORDERED: LIP10 PO (21:04)
[2016-10-09] MEDS ORDERED: FERR-57 PO (21:04)
[2016-10-09] MEDS ORDERED: AMI200 PO (21:04)
[2016-10-09] MEDS ORDERED: ALBU2.5V7 INH (21:04)
[2016-10-09] MEDS ORDERED: GLU500 PO (21:04)
[2016-10-09] MEDS ORDERED: CYM30 PO (21:04)
[2016-10-09] MEDS: VANCOMYCIN HCL 1,250 MG in NS 250 ML IV SCH (21:10)
--- NOTE | 2016-10-09 21:20 | NUR ---
DR FLORY Avelar notified regarding Pt's respiratory status, orders received. 1. Lasix 40mg IV x1 now 2. Decrease IV rate to 70ml/hr 3. Albuterol 2.5mg/3ML Q2P
[2016-10-09] MEDS ORDERED: FUROSEMIDE 40 MG/4 ML VIAL IVP ONE (21:30)
[2016-10-09] MEDS ORDERED: DEXTROSE 50% JECT 50 ML DISP.SYRIN IVP PRN (21:30)
[2016-10-09] MEDS: D5/0.45 NS 1,000 ML IV SCH (21:57)
[2016-10-09] MEDS: ZOLPIDEM TARTRATE 5 MG TABLET PO PRN (22:05)
[2016-10-09] MEDS: PIPERACILLIN/TAZO 4.5GM/DEX-IS 100 ML IV SCH (22:15)
--- NOTE | 2016-10-09 23:10 | NUR ---
pt.had requested pain medication.i have administered dilaudid:2mg ivp:via picc line. 2 assess pt.re:pain medication;efficacy per pain protocol.call light placed w/in pt's reach.
[2016-10-09] MEDS: LORazepam 2 MG/ML VIAL IVP PRN (23:46)
--- NOTE | 2016-10-09 23:50 | NUR ---
pt.presented and maintained a restless/agitated status.i have administered ativan:2mg ivp:via the picc line.2 assessed pt.re:medciation efficacy per protocol.call light placed w/in pt's reach.
[2016-10-10] VITALS (25 sets, daily range): BP systolic 93–147; BP diastolic 49–110; PULSE 70–84; RESP 16–33; TEMP 96.8–98.4; O2SAT 91–97
[2016-10-10] MEDS: ALBUTEROL SULFATE 0.083% 2.5 MG/3 ML VIAL.NEB INH PRN ×3 (00:03→20:01)
--- NOTE | 2016-10-10 00:15 | NUR ---
assessed pt.post administration;ativan:2mg ivp.pt.presents quiescent affect;calm,asleep. no distress/discomfort manifested.call light w/in pt's reach.
[2016-10-10] MEDS: AMIKACIN SULFATE 500 MG in D5W 100 ML IV SCH ×3 (04:05→20:15)
--- NOTE | 2016-10-10 04:51 | NUR ---
pix of the wounds attended 2 @this hour.colostomy assessed.archer catheter emptied.
[2016-10-10] MEDS: PIPERACILLIN/TAZO 4.5GM/DEX-IS 100 ML IV SCH ×2 (06:09→14:23)
[2016-10-10 06:16] LABS: BASOPHILS # (AUTO) 0.1 K/uL (0.0-0.2); BASOPHILS % (AUTO) 0.7 % (0.0-2.0); EOSINOPHILS # (AUTO) 0.3 K/uL (0.0-0.4); EOSINOPHILS % (AUTO) 3.9 % (0.0-4.0); HEMATOCRIT 31.8 % (36-54); HEMOGLOBIN 9.9 g/dL (14.0-18.0); LYMPHOCYTES # (AUTO) 2.1 K/uL (1.0-5.5); LYMPHOCYTES % (AUTO) 23.9 % (20.5-51.5); MEAN CORPUSCULAR HEMOGLOBIN 24 pg (27-31); MEAN CORPUSCULAR HGB CONC 31 % (32-36); MEAN CORPUSCULAR VOLUME 77 fL (79.0-98.0); MONOCYTES # (AUTO) 0.5 K/uL (0.0-1.0); MONOCYTES % (AUTO) 5.4 % (1.7-9.3); NEUTROPHILS % (AUTO) 66.1 % (40.0-70.0); PLATELET COUNT (AUTO) 618 K/uL (130-430); RED BLOOD CELL COUNT(AUTO) 4.13 MIL/uL (4.2-6.2)
--- NOTE | 2016-10-10 06:33 | NUR ---
pt.assessed.pt.presents stable status.v/s values w/in normal limits.pt.presents quiescent affect;calm,asleep. colostomy assessed.supra-pubic catheter assessed.wound care attended to:edis.wounds photograghed. pt.repositioned.iv fluids infusing via picc line.abx;ivpb administered.o2 sat%=94% via venti-mask:50%. blood glucose assessed:121mg/dl.call light placed w/in pt's reach.
[2016-10-10] MEDS: HYDROmorphone 2 MG/ML VIAL IVP PRN ×4 (06:53→21:56)
--- NOTE | 2016-10-10 06:58 | NUR ---
pt.requested dilaudid:pain medication.i have administered dilaudid:2mg ivp via the picc line. call light placed w/in pt's reach.pain medication efficacy to be assessed per protocol.
[2016-10-10 07:18] LABS: ABG TOTAL HEMOGLOBIN 10.9 G/dL (12.0-18.0); BLOOD GAS BASE EXCESS 1.1 mmol/L (-3.0-3.0); BLOOD GAS COHb% 0.4 % (0.5-1.5); BLOOD GAS HHB 8.7 % (0.0-6.0); BLOOD O2Hb% 90.3 % (94.0-97.0)
--- NOTE | 2016-10-10 07:25 | NUR ---
INITIAL NOTES RECEIVED PATIENT ON BED ASLEEP AND EASILY AROUSED WITH VERBAL STIMULI;WITH SLIGHT SHORTNESS OF BREATH;ON VENTI MASK AT 15L.IVF INFUSING WELL;NO SIGNS AND SYMPTOMS OF INFILTRATION.SAFETY AND FALL PRECAUTIONS IN PLACE.CALL LIGHT WITHIN REACH Addendum: 10/10/16 at 1445 by Kadi Queen RN WITH 50% O2
[2016-10-10 07:44] LABS: CREATININE 1.12 mg/dL (0.55-1.30); POTASSIUM 3.3 mmol/L (3.5-5.1)
[2016-10-10 07:48] LABS: RED CELL DISTRIBUTION WIDTH 26.4 % (9.0-15.0)
[2016-10-10 07:49] LABS: ALBUMIN 2.1 g/dL (3.4-4.8); TOTAL BILIRUBIN 0.4 mg/dL (0.0-1.0); TOTAL PROTEIN, SERUM 6.9 g/dL (6.4-8.3)
[2016-10-10] MEDS: VANCOMYCIN HCL 1,250 MG in NS 250 ML IV SCH ×2 (08:14→21:57)
[2016-10-10] MEDS ORDERED: ALBUTEROL SULFATE 0.083% 2.5 MG/3 ML VIAL.NEB INH PRN (09:30)
[2016-10-10] MEDS ORDERED: BACLOFEN 10 MG TABLET PO PRN (09:30)
--- NOTE | 2016-10-10 09:35 | NUR ---
DR. ESTRADA CAME AND EXAMINED THE PATIENT;WITH ORDERS AND CARRIED OUT
--- NOTE | 2016-10-10 09:48 | NUR ---
DR. BAZZI CAME AND EXAMINED THE PATIENT;NO NEW ORDERS
[2016-10-10] MEDS: D5/0.45 NS 1,000 ML IV SCH ×2 (11:45→13:48)
--- NOTE | 2016-10-10 12:30 | NUR ---
SERVED LUNCH;CONSUMED ONLY ABOUT 25%;TOLERATED
--- NOTE | 2016-10-10 13:06 | NUR ---
DR. SEBASTIAN CAME AND EXAMINED THE PATIENT;WITH ORDERS AND CARRIED OUT
--- NOTE | 2016-10-10 14:38 | NUR ---
consult for dr. orta called spoke to ron dialed [phone]
[2016-10-10] MEDS ORDERED: FUROSEMIDE 40 MG/4 ML VIAL IVP ONE (15:45)
--- NOTE | 2016-10-10 15:45 | NUR ---
DR. FERGUSON CALLED;INFORMED REGARDING PATIENT'S CONDITION;WITH ORDERS AND CARRIED OUT
[2016-10-10] MEDS ORDERED: FUROSEMIDE 40 MG/4 ML VIAL ONE (15:46)
--- NOTE | 2016-10-10 16:45 | NUR ---
PICC LINE DRESSING CHANGED;NO SIGNS AND SYMPTOMS OF INFILTRATION;NO SIGNS AND SYMPTOMS OF INFECTION.PROCEDURE TOLERATED WELL
[2016-10-10] MEDS: metFORMIN HCL 500 MG TABLET PO SCH (17:09)
--- NOTE | 2016-10-10 17:44 | NUR ---
PATIENT ON BED ASLEEP STILL WITH SHORTNESS OF BREATH;O2 SAT=95%
--- NOTE | 2016-10-10 19:20 | NUR ---
CLOSING NOTES PATIENT ON BED AWAKE.BREATHING SLIGHTLY LABORED USING ACCESSORY MUSCLES.NO ACUTE DISTRESS.ENDORSED TO NEXT SHIFT ACCORDINGLY
--- NOTE | 2016-10-10 19:35 | NUR ---
PM SHIFT ASSESSMENT Pt A&O X4. Contact isolation. Venti mask @ 50%, tolerating setting well. No acute s/s of distress noted. SR on monitor. Picc line to ICRO, no s/s of infiltration, IVF infusing. Supapubic catheter draining to gravity. Colostomy noted to LLA. Multiple wounds to legs, hip and sacrum. Dressings in place, clean, dry and intact. Call light within reach, safety precautions in place, will continue to monitor.
--- NOTE | 2016-10-10 20:56 | NUR ---
DR MARTY Chávez here evaluating Pt.
[2016-10-10] MEDS: POTASSIUM CHLORIDE 20 MEQ/PKT PACKET PO SCH (22:09)
[2016-10-10] MEDS: FUROSEMIDE 40 MG/4 ML VIAL IVP SCH (22:09)
[2016-10-10] MEDS: AMIODARONE HCL 200 MG TABLET PO SCH (22:09)
[2016-10-10] MEDS: ATORVASTATIN 20 MG TABLET PO SCH (22:10)
[2016-10-10] MEDS: CARVEDILOL 6.25 MG TABLET (COREG) PO SCH (22:31)
[2016-10-10] MEDS: ZOLPIDEM TARTRATE 5 MG TABLET PO PRN (23:30)
[2016-10-11] VITALS (20 sets, daily range): BP systolic 83–130; BP diastolic 48–95; PULSE 63–89; RESP 16–27; TEMP 96.5–98; O2SAT 92–99
[2016-10-11] MEDS: PIPERACILLIN/TAZO 4.5GM/DEX-IS 100 ML IV SCH ×4 (01:05→21:47)
[2016-10-11] MEDS: HYDROmorphone 2 MG/ML VIAL IVP PRN ×5 (02:58→21:34)
[2016-10-11] MEDS: AMIKACIN SULFATE 500 MG in D5W 100 ML IV SCH ×3 (04:18→21:47)
--- NOTE | 2016-10-11 04:40 | NUR ---
SLEEPING Pt sleeping. No s/s of acute distress noted. Will continue to monitor.
[2016-10-11 06:20] LABS: BASOPHILS # (AUTO) 0.1 K/uL (0.0-0.2); BASOPHILS % (AUTO) 0.7 % (0.0-2.0); EOSINOPHILS # (AUTO) 0.9 K/uL (0.0-0.4); EOSINOPHILS % (AUTO) 11.5 % (0.0-4.0); HEMATOCRIT 30.4 % (36-54); HEMOGLOBIN 9.6 g/dL (14.0-18.0); LYMPHOCYTES # (AUTO) 1.5 K/uL (1.0-5.5); LYMPHOCYTES % (AUTO) 19.4 % (20.5-51.5); MEAN CORPUSCULAR HEMOGLOBIN 24 pg (27-31); MEAN CORPUSCULAR HGB CONC 32 % (32-36); MEAN CORPUSCULAR VOLUME 76 fL (79.0-98.0); MONOCYTES # (AUTO) 0.4 K/uL (0.0-1.0); MONOCYTES % (AUTO) 5.5 % (1.7-9.3); NEUTROPHILS # (AUTO) 4.9 K/uL (1.8-7.7); PLATELET COUNT (AUTO) 488 K/uL (130-430); RED BLOOD CELL COUNT(AUTO) 3.99 MIL/uL (4.2-6.2); WHITE BLOOD COUNT (AUTO) 7.8 K/uL (4.8-10.8)
[2016-10-11 06:59] LABS: CALCIUM 7.6 mg/dL (8.4-11.0); CREATININE 1.11 mg/dL (0.55-1.30); TOTAL BILIRUBIN 0.6 mg/dL (0.0-1.0)
[2016-10-11 07:00] LABS: ALBUMIN 1.9 g/dL (3.4-4.8); TOTAL PROTEIN, SERUM 6.5 g/dL (6.4-8.3)
[2016-10-11 07:01] LABS: POTASSIUM 2.9 mmol/L (3.5-5.1)
--- NOTE | 2016-10-11 07:30 | NUR ---
ENDORSEMENT Pt care endorsed to GLORIA Felipe at bedside using nursing SBAR.
[2016-10-11] MEDS: metFORMIN HCL 500 MG TABLET PO SCH ×2 (08:09→18:06)
--- NOTE | 2016-10-11 08:09 | NUR ---
AM ASSESSMENT. PT STATED "I WANT MY PAIN SHOT", O2 IN USE VIA VENTI MASK, GENERALIZED DISCOMFORTS, HIP/BACK, DILAUDID 2 MG IVP GIVEN, REPOSITIONED IN BED, COLOSTOMY SEEN WITH LOOSE DARK GREENISH DRAINAGE, CONTINUE IVF D51/2 NS AT 70 ML PER HR.
--- NOTE | 2016-10-11 08:40 | NUR ---
REST. PT RELIEVED OF DISCOMFORT AFTER INTERVENTION.
[2016-10-11 08:55] LABS: NEUTROPHILS % (AUTO) 62.9 % (40.0-70.0)
[2016-10-11] MEDS ORDERED: POTASSIUM CHLORIDE 20 MEQ TAB.PRT.SR PO ONE (09:00)
[2016-10-11] MEDS: FUROSEMIDE 40 MG/4 ML VIAL IVP SCH ×2 (09:10→21:34)
[2016-10-11] MEDS: VANCOMYCIN HCL 1,250 MG in NS 250 ML IV SCH ×2 (09:10→21:33)
[2016-10-11] MEDS: AMIODARONE HCL 200 MG TABLET PO SCH ×2 (09:11→21:38)
[2016-10-11] MEDS: CARVEDILOL 6.25 MG TABLET (COREG) PO SCH ×2 (09:12→21:36)
[2016-10-11] MEDS: POTASSIUM CHLORIDE 20 MEQ/PKT PACKET PO SCH ×2 (09:12→21:46)
[2016-10-11] MEDS: DULoxetine HCL 30 MG CAPSULE.DR (CYMBALTA) PO SCH (09:13)
--- NOTE | 2016-10-11 09:59 | NUR ---
. PT STILL PICKING SOME FOOD FROM HIS TRAY, DR ESTRADA CAME IN. PT COMPLAINED THAT THERE IS A SMALL PIECE OF FOOD STUCK IN HIS THROAT. MD EXAMINED PT. NO FOOD SEEN FROM ORAL EXAMINATION. PT ABLE TO RESPOND TO QUESTIONS. WILL HAVE SWALLOWING THERAPY ASSESS PT AND A CHEST XRAY.
--- NOTE | 2016-10-11 10:20 | NUR ---
XRAY. PT JUST HAD CHEST XRAY . NO COMPLAINTS OF NAUSEA. PT STATED "I'M OK NOW".
--- NOTE | 2016-10-11 12:26 | NUR ---
PAIN. PT VERBALIZED "I WANT MY PAIN SHOT", DILAUDID 2 MG IVP ORDERED FOR GENERALIZED DISCOMFORT.
--- NOTE | 2016-10-11 13:00 | NUR ---
REST. PT RE-ASSESSED FOR DISCOMFORT, PT STATED "I'M FINE".
--- NOTE | 2016-10-11 14:10 | NUR ---
HYGIENE. ALL WOUND DRESSING REMOVED, SKIN CARE TO WOUND DONE BY CHARGE NURSE, COVERED WITH CLEAN FOAM DRESSING.
[2016-10-11] MEDS: D5/0.45 NS 1,000 ML IV SCH (16:45)
--- NOTE | 2016-10-11 18:34 | NUR ---
REPORT. GIVEN TO GLORIA POWER.
--- NOTE | 2016-10-11 18:55 | NUR ---
TO [facility]. TRANSFERRED PT TO ROOM 116-A, CALL LIGHT PLACED IN PT'S REACH, O2 VIA NASAL CANNULA AT 4 L PER MIN, ALL PERSONAL BELONGINGS MOVED OUT OF ICU AND PLACED TO PT'S NEW ASSIGNED ROOM.
--- NOTE | 2016-10-11 21:15 | NUR ---
Patient awake alert assist encourage position change collectomy bag intact lower abdomen , dark color stool noted .
[2016-10-11] MEDS: ATORVASTATIN 20 MG TABLET PO SCH (21:35)
[2016-10-11] MEDS: ZOLPIDEM TARTRATE 5 MG TABLET PO PRN (21:37)
--- NOTE | 2016-10-11 22:34 | NUR ---
VANCOMYCIN 1500 MG IVPB administer as ordered no allergic reaction HOB kept elevated chest movement shallow also symmetrical / .
--- NOTE | 2016-10-11 22:41 | NUR ---
DILAUDID 2 MG IVP administer for general pain & helpful comfort measures implemented / .
--- NOTE | 2016-10-11 22:42 | NUR ---
patient to be NPO @ midnight and alert also aware .
--- NOTE | 2016-10-11 23:14 | NUR ---
Amikacin 500 mg ivpb administer as ordered , no s/sx of adverse reaction noted .
--- NOTE | 2016-10-11 23:15 | NUR ---
LASIX 40 MG IVP administer , respirations regular also unlabored .
[2016-10-12] VITALS (14 sets, daily range): BP systolic 69–171; BP diastolic 36–90; PULSE 61–85; RESP 11–27; TEMP 96.7–98.8; O2SAT 92–100; Ht 185.4 cm; Wt 78.9 kg
--- NOTE | 2016-10-12 00:44 | NUR ---
Inpatient surgical & procedural checklist , has been started , patient is aware of NPO status .
[2016-10-12] MEDS: AMIKACIN SULFATE 500 MG in D5W 100 ML IV SCH (03:35)
[2016-10-12] MEDS: PIPERACILLIN/TAZO 4.5GM/DEX-IS 100 ML IV SCH ×3 (05:13→22:31)
[2016-10-12] MEDS: D5/0.45 NS 1,000 ML IV SCH ×2 (05:14→18:12)
[2016-10-12] MEDS: HYDROmorphone 2 MG/ML VIAL IVP PRN ×2 (05:14→19:56)
--- NOTE | 2016-10-12 05:32 | NUR ---
COLLECTOMY device empty liquid stool medium brown in color 300 ml out , procedure tolerated .
--- NOTE | 2016-10-12 05:35 | NUR ---
DILAUDID 2 MG IVP given for general pain & helpful , position change tolerated .
[2016-10-12 07:02] LABS: BASOPHILS # (AUTO) 0.1 K/uL (0.0-0.2); BASOPHILS % (AUTO) 0.8 % (0.0-2.0); EOSINOPHILS # (AUTO) 0.9 K/uL (0.0-0.4); EOSINOPHILS % (AUTO) 11.2 % (0.0-4.0); HEMATOCRIT 33.2 % (36-54); HEMOGLOBIN 10.5 g/dL (14.0-18.0); LYMPHOCYTES # (AUTO) 1.4 K/uL (1.0-5.5); LYMPHOCYTES % (AUTO) 16.8 % (20.5-51.5); MEAN CORPUSCULAR HEMOGLOBIN 24 pg (27-31); MEAN CORPUSCULAR HGB CONC 32 % (32-36); MONOCYTES # (AUTO) 0.5 K/uL (0.0-1.0); MONOCYTES % (AUTO) 6.3 % (1.7-9.3); NEUTROPHILS # (AUTO) 5.6 K/uL (1.8-7.7); NEUTROPHILS % (AUTO) 64.9 % (40.0-70.0); PLATELET COUNT (AUTO) 492 K/uL (130-430); RED CELL DISTRIBUTION WIDTH 26.3 % (9.0-15.0); WHITE BLOOD COUNT (AUTO) 8.5 K/uL (4.8-10.8)
[2016-10-12 07:25] LABS: CALCIUM 7.8 mg/dL (8.4-11.0); CREATININE 1.13 mg/dL (0.55-1.30); POTASSIUM 3.2 mmol/L (3.5-5.1)
[2016-10-12 07:33] LABS: MEAN CORPUSCULAR VOLUME 75 fL (79.0-98.0)
[2016-10-12] MEDS: metFORMIN HCL 500 MG TABLET PO SCH (08:00)
--- NOTE | 2016-10-12 08:00 | NUR ---
initial notes rec patient asleep with hob elevated, with o2 at 2 liters via nasal cannula. resp easy and unlabored. picc line on the r upper arm intact with 2 ports. no infiltration noted. npo maintained for sx today with dr wong. bed in low position and side rials up and locked.call light within reached and knows when to call for assists. will continue to monitor patient.
[2016-10-12] MEDS: DULoxetine HCL 30 MG CAPSULE.DR (CYMBALTA) PO SCH (09:00)
[2016-10-12] MEDS: CARVEDILOL 6.25 MG TABLET (COREG) PO SCH (09:00)
[2016-10-12] MEDS: AMIODARONE HCL 200 MG TABLET PO SCH (09:00)
[2016-10-12] MEDS: POTASSIUM CHLORIDE 20 MEQ/PKT PACKET PO SCH (09:00)
--- NOTE | 2016-10-12 09:04 | NUR ---
Nutrition Update Slim Scale 11 noted. Pt admitted for prolapsed colostomy. Diet: [facility] BMI: 28.7 kg/m2 RD to follow per nutrition care standards.
--- NOTE | 2016-10-12 09:30 | NUR ---
rounds dr orta stated that patient is clear for sx.
--- NOTE | 2016-10-12 09:47 | NUR ---
rounds seen by dr orta and spoke with dr wong. pt is sleeping soundly at this time.
--- NOTE | 2016-10-12 10:09 | NUR ---
CONSULT ORDERED CALLED CONSULT FOR MDRO WOUNDS SPOKE WITH ALEJO FOR DR Kelvin RICH
[2016-10-12] MEDS: VANCOMYCIN HCL 1,250 MG in NS 250 ML IV SCH (11:14)
--- NOTE | 2016-10-12 12:36 | NUR ---
rounds seen by dr husain . npo maintained. no sob noted.
--- NOTE | 2016-10-12 13:00 | NUR ---
rounds to sx via bed. no sob noted. npo was maintained.
[2016-10-12] MEDS ORDERED: LR 1,000 ML IV SCH (14:30)
[2016-10-12] MEDS ORDERED: MORPHINE 2 MG/ML INJ. SYRINGE IVP PRN ×3 (14:30)
[2016-10-12] MEDS ORDERED: METOCLOPRAMIDE HCL 10 MG/2 ML VIAL IVP PRN (14:30)
--- NOTE | 2016-10-12 14:38 | NUR ---
S.T. SWALLOW EVAL ORDER RECEIVED. EVAL ATTEMPTED TWICE. PT OFF UNIT FOR PROCEDURE. UNABLE TO COMPLETE EVAL. S.T. WILL FOLLOW. NURSE DENNIS FOOTE.
--- NOTE | 2016-10-12 15:25 | NUR ---
TRANSFER NOTES: RECEIVED PATIENT RECOVERY NURSE WITH HIM TO RECOVERY STAYED FOR 30 MINS. PT AROUSAL, ABLE TO STATED NAME. PLACED IN MONITOR.ON VENTILATOR SETTING E TUBE SIZE 8, 23 IN. AC 10, FIO2 40% TV 700% PEEP 3, SATURATION 96-97%.HOB ELEVATED TO PREVENT ASPIRATION.PATIENT TRYING TO TOUCH TUBE FREQUENT REORIENTATION NEEDED. PICC LINE AT CIRO 2 LUMEN IVF INFUSING. NO SWELLING OR INFILTRATION NOTED. RLU COLOSTOMY WITH SMALL BLOODY OUTPUT.S/P EXPLORATORY LAPAROTOMY REVISION OF COLOSTOMY. LEFT SIDE MID DRESSING CDI. ON LOW AIR MATTRESS, KRISTINE BUTTOCKS WITH WOUND AND DRESSING.KRISTINE LE AND HEEL WOUND WITH DRESSING.MELO CATHETER DRAINING WELL VIA GRAVITY YELLOW OUTPUT. SCD ON FOR DVT PROPHYLAXIS.VITAL SIGN STABLE, AFEBRILE. SIDE RAIL UP.
[2016-10-12] MEDS: GENTAMICIN SULFATE 160 MG in NS 100 ML IV SCH (16:11)
--- NOTE | 2016-10-12 16:20 | NUR ---
PATIENT EXTUBATED HIMSELF.NO RESPIRATORY DISTRESS. SATURATION 85-86% ROOM AIR. VENTI MASK AT 40% FI02 PLACED SATURATION 96-99%. WILL MONITOR.
--- NOTE | 2016-10-12 16:40 | NUR ---
WOUND CARE. WOUND AT KRISTINE HEEL AND LE CLEANSE WITH NS , PHOTOS TAKEN. DRESSING APPLIED. UNABLE TO FINISHED TAKEN PICTURE OF WOUND. CAMERA IS LOW BATTERY. WILL ENDORSED.
--- NOTE | 2016-10-12 18:00 | NUR ---
VENTURI MASK REMOVED AND REPLACED WITH OXIMIZER 6L. PT SHOWS NO S/S OF RESPIRATORY DISTRESS. VITAL SIGNS STABLE. O2 SATURATION 97%. RESPIRATORY RATE 20.
--- NOTE | 2016-10-12 18:10 | NUR ---
PATIENT POTASSIUM LEVEL 3.2, PAGED MD ESTRADA. AWAITED TO CALLBACK.
--- NOTE | 2016-10-12 18:20 | NUR ---
TELEPHONE ORDER: MD Toledo callback with new order received.
[2016-10-12] MEDS ORDERED: KCL 40 mEq in 100 mL (PREMIX) 100 ML IV ONE (18:30)
--- NOTE | 2016-10-12 18:43 | NUR ---
CLOSING NOTE: NO SIGNIFICANT CHANGES IN CONDITION. VITAL SIGNS STABLE. OXYMIZER 6L, 02 SATURATION 97%. IVF D5 1/2 NS AT 70. IV SITE PATENT, NO IRRITATION/INDURATION NOTED. HOB ELEVATED. WILL ENDORSE.
--- NOTE | 2016-10-12 20:00 | NUR ---
AWAKE, ALERT, ORIENTEDX3. DISORIENTED TO TIME, REORIENTED. DENIES SOB, DISTRESS. C/O KRISTINE LEG PAIN, 9/10 IN PAIN SCALE. DILAUDID 2 MG IVP GIVEN PER PT REQUEST. ON 02 AT 4L/OXYMIZER. POX 98%. BREATH SOUNDS ESSENTIALLY CLEAR. BOWEL SOUNDS (+). RUQ COLOSTOMY BAG NOTED. PARAPLEGIC. FOOT DROP EVIDENT. MULTIPLE WOUNDS DOCUMENTED. CIRO PICC LINE DRSG D/I. MELO CATH PATENT DRAINING CLOUDY LESIA URINE TO GRAVITY. KRISTINE SCD'S IN PLACE. AIR MATTRESS IN PLACE. CONTACT ISOLATION OBSERVED. SR. TURNED.
--- NOTE | 2016-10-12 21:00 | NUR ---
ACCU-CHEK 123, NO INSULIN DUE PER SLIDING SCALE COV.
[2016-10-12] MEDS: INSULIN ASPART 100 UNITS/ML, 10 ML VIAL (NovoLOG) SUBCUT PRN (21:05)
--- NOTE | 2016-10-12 21:30 | NUR ---
LASIX HELD MOMENTARILY FOR LOW BP.
--- NOTE | 2016-10-12 23:30 | NUR ---
BP BETTER AT 97/49, LASIX 20 MG IVP GIVEN .
[2016-10-12] MEDS: FUROSEMIDE 40 MG/4 ML VIAL IVP SCH (23:41)
[2016-10-13] VITALS (22 sets, daily range): BP systolic 77–132; BP diastolic 31–78; PULSE 62–83; RESP 12–27; TEMP 95.7–98.9; O2SAT 93–98
--- NOTE | 2016-10-13 | NUR ---
ASLEEP. 0 DISTRESS. LOOKS COMFORTABLE.
[2016-10-13] MEDS: GENTAMICIN SULFATE 160 MG in NS 100 ML IV SCH ×2 (00:34→12:59)
--- NOTE | 2016-10-13 03:00 | NUR ---
SLEPT FOR LONG PERIODS OF TIME. WANTED TO DRINK COFFEE, INFORMED HIM THAT HE IS NPO.
[2016-10-13] MEDS: PIPERACILLIN/TAZO 4.5GM/DEX-IS 100 ML IV SCH ×3 (05:33→21:07)
--- NOTE | 2016-10-13 06:00 | NUR ---
AWAKE. DENIES PAIN. ORAL CARE RENDERED. UO GOOD. PLEASANT. REMAINS IN GUARDED CONDITION.
[2016-10-13 06:29] LABS: ALBUMIN 1.9 g/dL (3.4-4.8); CALCIUM 7.7 mg/dL (8.4-11.0); CREATININE 1.63 mg/dL (0.55-1.30); POTASSIUM 3.6 mmol/L (3.5-5.1); TOTAL BILIRUBIN 0.8 mg/dL (0.0-1.0); TOTAL PROTEIN, SERUM 6.8 g/dL (6.4-8.3)
--- NOTE | 2016-10-13 06:30 | NUR ---
ACCU-CHEK 180, 2 UNITS NOVOLOG INSULIN SQ GIVEN PER SLIDING SCALE COV.
[2016-10-13] MEDS: INSULIN ASPART 100 UNITS/ML, 10 ML VIAL (NovoLOG) SUBCUT PRN ×3 (06:32→17:50)
[2016-10-13 06:55] LABS: HEMATOCRIT 36.8 % (36-54); HEMOGLOBIN 11.6 g/dL (14.0-18.0); MEAN CORPUSCULAR HEMOGLOBIN 24 pg (27-31); MEAN CORPUSCULAR HGB CONC 31 % (32-36); MEAN CORPUSCULAR VOLUME 76 fL (79.0-98.0); PLATELET COUNT (AUTO) 530 K/uL (130-430); RED BLOOD CELL COUNT(AUTO) 4.85 MIL/uL (4.2-6.2); RED CELL DISTRIBUTION WIDTH 25.9 % (9.0-15.0)
[2016-10-13 06:58] LABS: WHITE BLOOD COUNT (AUTO) 25.1 K/uL (4.8-10.8)
--- NOTE | 2016-10-13 07:45 | NUR ---
ASSESSMENT AROUSED TO VERBAL STIMULUS, RESPONDS APPROPRIATELY. C/O NECK PAIN, PILLOW PLACED. RECEIVING O2 AT 4 L VIA OXIMIZER. ENCOURAGED TO DEEP BREATHE AND COUGH, REINFORCED INSTRUCTIONS REGARDING I.S., ENCOURAGED TO USE IT FREQUENTLY. IS ON AIR MATTRESS WITH HEELS ELEVATED OFF MATTRESS WITH PILLOW SUPPORT, SCD IN USE.
[2016-10-13] MEDS ORDERED: ALBUTEROL SULFATE 0.083% 2.5 MG/3 ML VIAL.NEB INH PRN (08:15)
[2016-10-13] MEDS: FUROSEMIDE 40 MG/4 ML VIAL IVP SCH ×2 (08:49→21:06)
[2016-10-13] MEDS: AMIODARONE HCL 200 MG TABLET PO SCH ×2 (08:50→21:05)
[2016-10-13] MEDS: BACLOFEN 10 MG TABLET PO SCH ×3 (08:50→21:06)
--- NOTE | 2016-10-13 08:50 | NUR ---
DIET TOLERATED CLEAR LIQUID DIET. MEDICATED FOR C/O BACK AND NECK PAIN PER REQUEST.
[2016-10-13] MEDS: DULoxetine HCL 30 MG CAPSULE.DR (CYMBALTA) PO SCH ×2 (08:51→21:06)
[2016-10-13] MEDS: CARVEDILOL 6.25 MG TABLET (COREG) PO SCH ×2 (08:52→21:00)
[2016-10-13] MEDS: ATORVASTATIN 10 MG TABLET PO SCH (08:52)
[2016-10-13] MEDS: HYDROmorphone 2 MG/ML VIAL IVP PRN ×2 (08:55→21:46)
--- NOTE | 2016-10-13 09:30 | NUR ---
Wound Consult: Wound consult request per Dr. Toledo. Thank you, Dr. Toledo, for the consult. Patient awake, alert, oriented, and received in a [place] bed with a low air-loss mattress. Skin is poor. Past medical history: Paraplegia, Chronic Pain, Opioid Dependence, Hypertension, Hyperlipidemia, Benign Prostatic Hypertrophy, diet-controlled Diabetes Mellitus, Stage IV Decubitus Ulcer, and Diverting Colostomy. Current labs: WBC 25.1, RBC 4.85, Hgb 11.6, Hct 36.8, PLT 530, BUN 9, Creat 1.63, GFR 45, Gluc 170, Ca 7.7, Alb 1.9, PT 12.8. MRSA Screen negative. Blood Culture x 2 in progress. Intrinsic factors that delay wound healing: Diabetes Mellitus. Extrinsic factors: Decreased mobility. Patient presents with: 1) Right Buttock near Ischium: Pressure Ulcer, present on admission. Wound bed is 95% yellow tissue, 5% red tissue. No odor, no drainage. Undermining present from 11-1 o'clock, deepest 1.5 cm at 1 o'clock. Measures 8.0 cm x 6.0 cm x 3.3 cm. Recommend: Cleanse wound with normal Saline. Pat dry. Put moisture barrier cream onto floresita-wound. Put Venelex ointment onto wound bed. Place one 2.2 cm TenderWet dressing into wound bed. Cover with non-adherent foam dressing, then transparent dressing. Perform wound care daily, and and needed for dressing soiling or dislodgment. 2) Left Buttock near Ischium: Pressure Ulcer, present on admission. Wound bed is 95% yellow tissue, 5% pink tissue. No odor, no drainage. Sinus Tract present, 3.5 cm. Undermining present from 10-2 o'clock, deepest 4.0 cm at 10 o'clock. Measures 6.0 cm x 12.0 cm x 2.0 cm. Recommend: Cleanse wound with normal Saline. Pat dry. Put moisture barrier cream onto floresita-wound. Put Venelex ointment onto wound bed. Place one 1.6 cm TenderWet dressing into wound bed. Cover with non-adherent foam dressing, then transparent dressing. Perform wound care daily, and and needed for dressing soiling or dislodgment. 3) Left Lateral Buttock: Pressure Ulcer, present on admission. Wound bed is 90% red tissue, 10% dark discolored tissue. No odor, no drainage. Floresita-wound and surrounding tissue has maceration. Measures 4.5 cm x 3.5 cm. Recommend: Cleanse wound with normal Saline. Pat dry. Put moisture barrier cream onto wound and floresita-wound. Put Venelex ointment onto any portion of wound bed not covered by moisture barrier cream. Cover with non-adherent foam dressing, then transparent dressing. Perform wound care daily, and and needed for dressing soiling or dislodgment. 4) Right Upper Sacral Area: 100% brown discoloration (does not appear to be eschar), present on admission. No odor, no drainage. Measures 0.7 cm x 0.7 cm. Recommend: Cleanse site with normal Saline. Pat dry. Put moisture barrier cream onto wound and floresita-wound. Cover with non-adherent foam dressing, then transparent dressing. Perform wound care daily, and and needed for dressing soiling or dislodgment. 5) Left Heel: Unstageable Pressure Ulcer, present on admission. Wound bed is 85% yellow tissue, 15% pink tissue. No odor, no drainage. Floresita-wound intact. Measures 3.0 cm x 3.0 cm. Recommend: Cleanse wound with normal Saline. Pat dry. Put moisture barrier cream onto floresita-wound. Put on Venelex ointment onto wound bed. Cover with foam dressing. Perform wound care daily, and and needed for dressing soiling or dislodgment. 6) Right Distal Lateral Lower Extremity, Superior to Malleolus: Chronic wound with 100% black eschar, and scar tissue, present on admission. No odor, no drainage. Floresita-wound intact. Recommend: Cleanse wound with normal Saline. Pat dry. Put moisture barrier cream onto floresita-wound. Put on Venelex ointment onto wound bed. Cover with foam dressing. Perform wound care daily, and and needed for dressing soiling or dislodgment. 7) Left Distal Lateral Lower Extremity: Scar tissue from old surgery with four wounds, present on admission. Wounds are 100% yellow tissue. No odor, scant yellow drainage. Total wound area measures 7.0 cm x 2.5 cm. Recommend: Cleanse wound with normal Saline. Pat dry. Put moisture barrier cream onto floresita-wound. Put on Venelex ointment onto wound bed. Cover with foam dressing. Perform wound care daily, and and needed for dressing soiling or dislodgment. 8) Right Great Toe Chronic wound with 100% black eschar, present on admission. No odor, scant yellow drainage. Floresita-wound intact. Measures 1.8 cm x 1.0 cm. Recommend: No dressing needed. Continue to monitor shift. 9) Left Lateral Foot at Fifth Metatarsal Head: Scar tissue, light pink/irina in color, present on admission. No odor, no drainage. Recommend continue: Cover with foam dressing for protection. Elevate, offload and float left foot. Also recommend: Reposition patient side to side only every 2 hours with pillow support. Offload pressure areas with pillows for pressure redistribution. Use moisture barrier cream on buttocks and other moisture susceptible areas qid and prn for soiling. Maintain patient on low air-loss therapy. Place towel rolls above and below left lower extremity wound to float, and use an additional towel roll to prevent external rotation of left lower extremity and also use towel rolls to prevent external rotation of right lower extremity
--- NOTE | 2016-10-13 09:30 | NUR ---
WOUND CARE WOUND CARE NURSE AT BEDSIDE TO EVALUATED WOUND AND MAKE RECOMMENDATION FOR WOUND CARE. WOUND CARE COMPLETED BY Marysol RACHEL RN/WOUND CARE NURSE AND Chelsey CRUZ RN.
[2016-10-13 09:33] LABS: ATYPICAL LYMPHOCYTES % 0 % (0-0); BAND % (MANUAL) 0 % (0-6); BASOPHILS % (MANUAL) 0 % (0-2); EOSINOPHILS % (MANUAL) 0 % (0-7); LYMPHOCYTES % (MANUAL) 8 % (20-46); MONOCYTES % (MANUAL) 4 % (0-11)
[2016-10-13] MEDS: D5/0.45 NS 1,000 ML IV SCH (12:26)
--- NOTE | 2016-10-13 14:30 | NUR ---
SPEECH THERAPIST SPEECH THERAPIST AT BEDSIDE FOR SWALLOW EVALUATION. HAS BEEN DOZING AT INTERVALS. BROWN LIQUID STOOL NOTED IN COLOSTOMY BAG.
--- NOTE | 2016-10-13 16:00 | NUR ---
DOZING DOZING AT INTERVALS. DOES NOT HAVE REQUESTS AT THIS TIME. REINFORCED TEACHING RE I.S.
--- NOTE | 2016-10-13 16:33 | NUR ---
S.T. SWALLOW EVAL COMPLETED. PT PRESENTS W/ ML ORAL DYSPHAGIA W/ PROLONGED MASTICATION. NO S/S OF ASPIRATION. REC: MECH SOFT FINELY CHOPPED DIET. THIN LIQUIDS OK. NURSE MEHNAZ NOTIFIED. [id number] CI [id number] CI [id number] CI NOMS LEVEL 6
[2016-10-13] MEDS ORDERED: NACL 0.9% 1,000 ML IV ONE (17:45)
--- NOTE | 2016-10-13 17:45 | NUR ---
DR. MARTY FERGUSON NOTIFIED OF BP 80/46. GAVE ORDERS FOR FLUID BOLUS 500ML AND TO HOLD TRANSFER TO TELEMETRY.
--- NOTE | 2016-10-13 19:00 | NUR ---
REPORT MARIZA CLEAR LIQUIDS. REPORT GIVEN TO NIGHT NURSE.
--- NOTE | 2016-10-13 20:00 | NUR ---
PM Assessment Pt awake alert oriented x 4. Clear speech. PICC noted on the right upper arm. Infusing D5 1/2 NS at 70ml/hr. Patent. Dressing clean, dry, and intact. Pt on Oxymizer 4l in place. Pt tolerating well at the time. Spo2 at 99%. upper lobe clear breath sounds to auscultate, bilateral lower lobes diminished. Suprapubic catheter gravity to drain, yellow, clear urine noted. Dressing noted on the abdomen with scant dry serosanguineous. New ostomy with colostomy bag noted on the right lower abdomen, brown loose stool noted. Safety precaution in place, Bed in the lowest positioned, locked. HOB semi novak positioned. DVT prophylactic bilateral lower extremities scd's in place. Educated to use call light for assistance. Verbalized understanding. Call light within reach. Will continue to monitor
[2016-10-13] MEDS: LORazepam 2 MG/ML VIAL IVP PRN (21:15)
--- NOTE | 2016-10-13 21:28 | NUR ---
INFORMED DR. ESTRADA UJHAR PATIENT PULLED OUT PICC LINE Informed Dr. Estrada patient pulled out PICC Line and peripheral IV was inserted. MD stated "That's fine, just keep the IV line." Also informed MD patient urinary output since started my shift and bladder scan shown 571ml residual and the patient with suprapubic catheter. with order for urologist consult with Dr. Fontana for suprapubic catheter malfunction. Order read back and okay to .
--- NOTE | 2016-10-13 21:30 | NUR ---
Reeducated pt regarding incentive spirometer. Pt demonstrated 1200ml noted. Educated pt the reason using the incentive spirometer. Pt verbalized understanding.
--- NOTE | 2016-10-13 22:30 | NUR ---
CHG bath completed.
[2016-10-14] VITALS (16 sets, daily range): BP systolic 89–126; BP diastolic 37–66; PULSE 67–84; RESP 17–28; TEMP 96.2–98.2; O2SAT 91–98
[2016-10-14] MEDS: GENTAMICIN SULFATE 160 MG in NS 100 ML IV SCH (00:26)
[2016-10-14] MEDS: D5/0.45 NS 1,000 ML IV SCH ×2 (03:07→18:49)
[2016-10-14] MEDS: PIPERACILLIN/TAZO 4.5GM/DEX-IS 100 ML IV SCH ×3 (06:31→21:54)
[2016-10-14 06:52] LABS: ALBUMIN 1.7 g/dL (3.4-4.8); CALCIUM 7.5 mg/dL (8.4-11.0); CREATININE 1.4 mg/dL (0.55-1.30); TOTAL BILIRUBIN 0.6 mg/dL (0.0-1.0); TOTAL PROTEIN, SERUM 6.6 g/dL (6.4-8.3)
[2016-10-14 06:59] LABS: POTASSIUM 2.6 mmol/L (3.5-5.1)
[2016-10-14 07:02] LABS: HEMATOCRIT 33.7 % (36-54); HEMOGLOBIN 10.4 g/dL (14.0-18.0); MEAN CORPUSCULAR HEMOGLOBIN 23 pg (27-31); MEAN CORPUSCULAR HGB CONC 31 % (32-36); MEAN CORPUSCULAR VOLUME 76 fL (79.0-98.0); PLATELET COUNT (AUTO) 370 K/uL (130-430); RED BLOOD CELL COUNT(AUTO) 4.45 MIL/uL (4.2-6.2); RED CELL DISTRIBUTION WIDTH 25.6 % (9.0-15.0)
--- NOTE | 2016-10-14 07:15 | NUR ---
INITIAL NOTES RECEIVED PATIENT ON BED ASLEEP.BREATHING EVEN AND UNLABORED WITH O2 AT 4L/M VIA OXIMIZER.NO ACUTE DISTRESS.IVF INFUSING WELL;NO SIGNS AND SYMPTOMS OF INFILTRATION.WITH MELO CATHETER INTACT AND PATENT DRAINING CLEAR YELLOW URINE.ON ISOLATION PRECAUTION FOR ESBL URINE.SAFETY AND FALL PRECAUTIONS IN PLACE.CALL LIGHT WITHIN REACH
[2016-10-14 07:36] LABS: WHITE BLOOD COUNT (AUTO) 16.6 K/uL (4.8-10.8)
[2016-10-14] MEDS ORDERED: COMMUNICATION ORDER XX ONE (08:00)
--- NOTE | 2016-10-14 08:00 | NUR ---
NOTES DR. BAZZI CAME AND EXAMINED THE PATIENT;INFORMED REGARDING PATIENT'S EPISODES OF LOW BLOOD PRESSURE EVERYTIME PATIENT IS GIVEN DILAUDID SAID HE WILL LOWER THE DOSE
[2016-10-14] MEDS: ATORVASTATIN 10 MG TABLET PO SCH (08:31)
[2016-10-14] MEDS: BACLOFEN 10 MG TABLET PO SCH ×3 (08:31→21:16)
[2016-10-14] MEDS: DULoxetine HCL 30 MG CAPSULE.DR (CYMBALTA) PO SCH ×2 (08:31→21:16)
[2016-10-14] MEDS: AMIODARONE HCL 200 MG TABLET PO SCH ×2 (08:32→21:17)
[2016-10-14] MEDS: CARVEDILOL 6.25 MG TABLET (COREG) PO SCH ×2 (08:34→21:17)
[2016-10-14] MEDS: FUROSEMIDE 40 MG/4 ML VIAL IVP SCH ×2 (08:36→21:16)
--- NOTE | 2016-10-14 08:45 | NUR ---
NOTES CAME AND EXAMINED THE PATIENT;WITH ORDERS AND CARRIED OUT
[2016-10-14] MEDS ORDERED: POTASSIUM CHLORIDE 40 MEQ, LIDOCAINE JECT 2% PF 100 MG 50 MG in NS 250 ML IV ONE ×2 (09:00→16:00)
[2016-10-14] MEDS: HYDROmorphone 1 MG INJ. 1 MG/ML AMPUL IVP PRN (09:26)
[2016-10-14 09:58] LABS: ATYPICAL LYMPHOCYTES % 0 % (0-0); BAND % (MANUAL) 0 % (0-6); BASOPHILS % (MANUAL) 0 % (0-2); EOSINOPHILS % (MANUAL) 3 % (0-7); LYMPHOCYTES % (MANUAL) 10 % (20-46); MONOCYTES % (MANUAL) 7 % (0-11)
--- NOTE | 2016-10-14 09:58 | NUR ---
NOTES WITH ORDER TO TRANSFER TO [facility];CARRIED OUT
[2016-10-14] MEDS ORDERED: SEVOFLURANE 15 MIN GAS INH ONE ×2 (10:35→13:30)
[2016-10-14] MEDS ORDERED: NS IRRIG SOLN 1000 ML IR ONE ×2 (10:35→13:30)
[2016-10-14] MEDS ORDERED: LR 1,000 ML IV.SOLN IV ONE ×2 (10:35→13:30)
[2016-10-14] MEDS ORDERED: MIDAZOLAM HCL 5 MG/5 ML VIAL IVP ONE ×2 (10:35→13:30)
[2016-10-14] MEDS ORDERED: PROPOFOL 200MG/ 20ML VIAL (DIPRIVAN) IV ONE ×2 (10:35→13:30)
[2016-10-14] MEDS ORDERED: ONDANSETRON HCL 4 MG/2 ML VIAL IVP ONE ×2 (10:35→13:30)
--- NOTE | 2016-10-14 10:35 | NUR ---
NOTES DR. ESTRADA CAME AND EXAMINED THE PATIENT;WITH ORDER AND CARRIED OUT
--- NOTE | 2016-10-14 11:22 | NUR ---
NOTES CALLED [facility] TO GIVE REPORT;SPOKE WITH EZE SAID HE PREFERS BEDSIDE REPORT
--- NOTE | 2016-10-14 11:30 | NUR ---
NOTES REPORT GIVEN TO NITIN)
--- NOTE | 2016-10-14 11:50 | NUR ---
NOTES TRANSFERRED PATIENT TO [facility] ALERT AWAKE BUT CONFUSED.BREATHING EVEN AND UNLABORED.NO ACUTE DISTRESS.ALL BELONGINGS SENT WITH PATIENT.ENDORSED ALL CARE TO EZE
--- NOTE | 2016-10-14 12:20 | NUR ---
PATIENT AWAKE, A/OX2, SOMEWHATCONFUSED; BREATHING EVEN AND UNLABORED WITH O2 AT 4L/M VIA OXIMIZER.NO ACUTE DISTRESS. PICC ON RIGHT ARM, INTACT AND PATENT. .WITH MELO CATHETER INTACT AND PATENT DRAINING CLEAR YELLOW URINE.ON ISO DUE TO ESBL AT THE URINE .SAFETY AND FALL PRECAUTIONS IN PLACE.CALL LIGHT WITHIN REACH
[2016-10-14] MEDS ORDERED: ROCURONIUM BROMIDE 10 MG/ML (ZEMURON) IV ONE (13:30)
[2016-10-14] MEDS ORDERED: fentaNYL CITRATE 250 MCG/5 ML AMP IV ONE (13:30)
--- NOTE | 2016-10-14 14:30 | NUR ---
PATIENT IS RESTING, NO SIGNS OF DISTRESS NOTED.
[2016-10-14] MEDS: LORazepam 2 MG/ML VIAL IVP PRN (15:06)
--- NOTE | 2016-10-14 16:40 | NUR ---
WOUND CARE COMPLETED. NO SIGNS OF DISTRESS NOTED AT THIS TIME.
--- NOTE | 2016-10-14 18:45 | NUR ---
PATIENT PULLED OUT HIS PICC LINE. DR. ESTRADA IS CALLED. AWAITING CALL BACK.
[2016-10-14] MEDS: INSULIN ASPART 100 UNITS/ML, 10 ML VIAL (NovoLOG) SUBCUT PRN (18:50)
--- NOTE | 2016-10-14 19:25 | NUR ---
INITIAL NOTE Patient resting on the bed. No acute distress. Respiration even and unlabored. On O2 2L/min via oximizer. No IV access at this time. Skin warm and dry to touch. Colostomy intact to right abdomen area, drain with brownish color of output. Mid abdomen covered with dressing. Suprapubic catheter intact drain gravity with 30ml of urine. On contact isolation for ESBL of urine. GEO mattress and SCD in placed. Safety measure maintained. Bed in low position, bed alarm on, side rails up. Call light within reached. Will continue to monitor.
--- NOTE | 2016-10-14 20:05 | NUR ---
IV INSERTION: Restarted on LFA. Successful after one attempt. Using aseptic technique. Resumed current IVF of D5 1/2NS and regulated @ 70ml/hr and K-rider at 68ml/hr. Will observe for any signs of infiltration.
--- NOTE | 2016-10-14 21:50 | NUR ---
NOTE Repositioned patient and changed the secured device from left leg to right leg. The urine started to drain with yellow color.Will continue to monitor the urinary output.
--- NOTE | 2016-10-14 23:40 | NUR ---
ROUND Patient resting on the bed. No acute distress. Removed oximizer, O2 sat=94%. Respiration even and unlabored. Safety measure maintained. Call light within reached. Urinary output 700ml at this time. Will continue to monitor.
--- NOTE | 2016-10-14 23:52 | NUR ---
Consult Called Reason For Consultation: Suprapubic Cath malfunction Person who was person notified: Yvonne Was consult called:Yes Consulting Physician: Addi Valentin ( [facility] catheterization laboratory technician) Release Coordinator Specialty: Urologist Release Coordinator
[2016-10-15 00:07] VITALS: BP 129/72; PULSE 87; RESP 20; TEMP 98.8; O2SAT 99
--- NOTE | 2016-10-15 01:10 | NUR ---
ROUND Patient resting on the bed with eyes closed. No acute distress. Respiration even and unlabored. Continue on O2 via oximizer. Safety measure maintained. Call light within reached. Bed in low position, bed in low position, side rails up. Continue to monitor.
[2016-10-15] MEDS: D5/0.45 NS 1,000 ML IV SCH ×2 (03:14→22:31)
[2016-10-15 04:10] VITALS: BP 122/70; PULSE 94; RESP 18; TEMP 97.4; O2SAT 98
--- NOTE | 2016-10-15 04:52 | NUR ---
ROUND Patient resting on the bed with eyes closed. No acute distress. Respiration even and unlabored. Continue on O2 2L/min via oximizer. Safety measure maintained. Bed in low position, bed in low position, side rails up. Call light within reached. Continue to monitor.
[2016-10-15] MEDS: PIPERACILLIN/TAZO 4.5GM/DEX-IS 100 ML IV SCH ×3 (06:12→21:28)
--- NOTE | 2016-10-15 06:30 | NUR ---
CLOSING NOTE Patient resting on the bed. No acute distress. Respiration even and unlabored. On O2 2L/min via oximizer. No IV access at this time. Skin warm and dry to touch. Colostomy intact to right abdomen area, drain with brownish color of output. Mid abdomen covered with dressing. Suprapubic catheter intact drain gravity with yellow urine. Patient with good urine output last night. On contact isolation for ESBL of urine. GEO mattress and SCD in placed. All needs met. Hourly rounding during shift. Safety measure maintained. Bed in low position, bed alarm on, side rails up. Call light within reached. Will endorse to morning shift nurse.
[2016-10-15 06:36] LABS: BASOPHILS % (AUTO) 0.2 % (0.0-2.0); EOSINOPHILS # (AUTO) 0.1 K/uL (0.0-0.4); HEMOGLOBIN 11.1 g/dL (14.0-18.0); LYMPHOCYTES # (AUTO) 1.5 K/uL (1.0-5.5); MEAN CORPUSCULAR HGB CONC 32 % (32-36); MONOCYTES # (AUTO) 0.8 K/uL (0.0-1.0)
[2016-10-15 06:37] LABS: CREATININE 1.42 mg/dL (0.55-1.30)
[2016-10-15 06:45] LABS: POTASSIUM 2.9 mmol/L (3.5-5.1)
[2016-10-15 06:55] LABS: EOSINOPHILS % (AUTO) 0.6 % (0.0-4.0); LYMPHOCYTES % (AUTO) 8.9 % (20.5-51.5); MEAN CORPUSCULAR HEMOGLOBIN 24 pg (27-31); MEAN CORPUSCULAR VOLUME 76 fL (79.0-98.0); NEUTROPHILS # (AUTO) 14.6 K/uL (1.8-7.7); NEUTROPHILS % (AUTO) 85.3 % (40.0-70.0); PLATELET COUNT (AUTO) 398 K/uL (130-430); RED BLOOD CELL COUNT(AUTO) 4.61 MIL/uL (4.2-6.2)
[2016-10-15] MEDS ORDERED: POTASSIUM CHLORIDE 40 MEQ in NS 250 ML IV ONE (07:15)
--- NOTE | 2016-10-15 07:15 | NUR ---
INFORMED DR. ESTRADA JHUJGEENA K=2.[address] Estrada for k=2.9 this morning. with order fozia 40mEq IVPB X 1. Order read back and okay to .
--- NOTE | 2016-10-15 07:30 | NUR ---
RECEIVED THE CALL FROM DR. LOWERY, MARCELLO Received the call from Dr. Lowery regarding the reason for consult. Told MD that was bladder retention and bladder scan shown that 571ml of residual. However, after repositioned and changed the site of secured device, the patient with 2200ml of urine output last night. stated "That's fine if the patient with good urine output now."
--- NOTE | 2016-10-15 08:00 | NUR ---
OPENING NOTE: RECEIVED REPORT FROM NIGHT NURSE. PATIENT IS RESTING COMFORTABLY IN BED. NO S/S OF DISTRESS OR SOB. PATIENT IS AWAKE BUT CONFUSED. NONVERBAL EXCEPT FOR A COUPLE WORDS. MELO IS DRAINING TO GRAVITY. IV LINE IS PATENT AND INFUSING. VITAL SIGNS WNL, ASSESSMENT COMPLETE. CALL LIGHT IN REACH, BED IN LOWEST POSITIONS, AND WILL CONTINUE TO MONITOR.
[2016-10-15 08:50] VITALS: BP 133/119; PULSE 83; RESP 18; TEMP 97.6; O2SAT 100
[2016-10-15] MEDS: BACLOFEN 10 MG TABLET PO SCH ×3 (09:33→22:21)
[2016-10-15] MEDS: DULoxetine HCL 30 MG CAPSULE.DR (CYMBALTA) PO SCH ×2 (09:33→22:21)
[2016-10-15] MEDS: ATORVASTATIN 10 MG TABLET PO SCH (09:34)
[2016-10-15] MEDS: CARVEDILOL 6.25 MG TABLET (COREG) PO SCH ×2 (09:34→22:22)
[2016-10-15] MEDS: AMIODARONE HCL 200 MG TABLET PO SCH ×2 (09:35→22:22)
[2016-10-15] MEDS: FUROSEMIDE 40 MG/4 ML VIAL IVP SCH ×2 (09:36→22:13)
[2016-10-15] MEDS ORDERED: DOCUSATE SODIUM 100 MG CAPSULE PO PRN (10:00)
[2016-10-15] MEDS ORDERED: ONDANSETRON HCL 4 MG/2 ML VIAL IVP PRN (10:00)
[2016-10-15] MEDS ORDERED: LORazepam 2 MG/ML VIAL IVP PRN (10:00)
[2016-10-15] MEDS ORDERED: MAGNESIUM SULFATE 50 ML IV PRN (10:00)
[2016-10-15] MEDS ORDERED: ACETAMINOPHEN 325 MG TABLET PO PRN (10:00)
[2016-10-15] MEDS ORDERED: MORPHINE 2 MG/ML INJ. SYRINGE IVP PRN (10:00)
[2016-10-15] MEDS ORDERED: POTASSIUM CHLORIDE 10 MEQ TAB.PRT.SR PO PRN (10:00)
--- NOTE | 2016-10-15 10:00 | NUR ---
NOTE: DR. LOWERY'S ROSIE-LESIA SABILLON IN TO SEE PATIENT. SHE PLACED A NEW SUPRAPUBIC MELO, 16 GREEK. IMMEDIATE RETURN OF URINE SEE. PATIENT TOLERATED WELL. NO S/S OF DISTRESS OR SOB. CALL LIGHT IN REACH, BED IN LOWEST POSITION, AND WILL CONTINUE TO MONITOR.
[2016-10-15] MEDS: INSULIN ASPART 100 UNITS/ML, 10 ML VIAL (NovoLOG) SUBCUT PRN ×2 (11:57→22:23)
--- NOTE | 2016-10-15 12:00 | NUR ---
NOTE: PATIENT IS RESTING COMFORTABLY IN BED. NO S/S OF DISTRESS OR SOB. PATIENT IS AWAKE BUT CONFUSED. CALL LIGHT IN REACH, BED IN LOWEST POSITION, AND WILL CONTINUE TO MONITOR.
[2016-10-15 12:45] VITALS: BP 128/71; PULSE 74; RESP 20; TEMP 97.4; O2SAT 94
[2016-10-15 13:11] LABS: BILIRUBIN,URINE NEGATIVE (NEGATIVE); BLOOD, URINE 1+ (NEGATIVE); CLARITY/URINE CLEAR (CLEAR); COLOR,URINE YELLOW (YELLOW); GLUCOSE,URINE NEGATIVE (NEGATIVE); KETONES,URINE NEGATIVE (NEGATIVE); LEUKOCYTE ESTERASE ,URINE NEGATIVE (NEGATIVE); NITRITE, URINE NEGATIVE (NEGATIVE); PROTEIN URINE TRACE (NEGATIVE); UROBILINOGEN,URINE 0.2 (0.2-1.0)
[2016-10-15 13:30] LABS: BACTERIA,URINE FEW /HPF (None Seen); WBC,URINE 0-3 /HPF (0-3)
[2016-10-15 13:31] LABS: HYALINE CASTS, URINE 0-10 /LPF (None Seen)
--- NOTE | 2016-10-15 15:25 | NUR ---
Wound Re-Evaluation: Patient awake, alert, oriented, and received in a Choco bed with a low air-loss mattress. Skin is poor. Blood Culture x 2 negative. Intrinsic factors that delay wound healing: Diabetes Mellitus. Extrinsic factors: Decreased mobility. Patient presents with: 1) Right Buttock near Ischium: Pressure Ulcer, present on admission. Wound bed is 90% yellow tissue, 10% red tissue. No odor, no drainage. Undermining present from 11-1 o'clock, deepest at 1 o'clock. Recommend continue: Cleanse wound with normal Saline. Pat dry. Put moisture barrier cream onto ayanna-wound. Put Venelex ointment onto wound bed. Place one 2.2 cm TenderWet dressing into wound bed. Cover with non-adherent foam dressing, then transparent dressing. Perform wound care daily, and and needed for dressing soiling or dislodgment. 2) Left Buttock near Ischium: Pressure Ulcer, present on admission. Wound bed is 95% yellow tissue, 5% pink tissue. No odor, no drainage. Sinus Tract present, 3.5 cm. Undermining present from 10-2 o'clock, deepest at 10 o'clock. Recommend continue: Cleanse wound with normal Saline. Pat dry. Put moisture barrier cream onto ayanna-wound. Put Venelex ointment onto wound bed. Place one 1.6 cm TenderWet dressing into wound bed. Cover with non-adherent foam dressing, then transparent dressing. Perform wound care daily, and and needed for dressing soiling or dislodgment. 3) Left Lateral Buttock: Pressure Ulcer, present on admission. Wound bed is 90% red tissue, 10% dark discolored tissue. No odor, no drainage. Ayanna-wound and surrounding tissue has maceration. Recommend continue: Cleanse wound with normal Saline. Pat dry. Put moisture barrier cream onto wound and ayanna-wound. Put Venelex ointment onto any portion of wound bed not covered by moisture barrier cream. Cover with non-adherent foam dressing, then transparent dressing. Perform wound care daily, and and needed for dressing soiling or dislodgment. 4) Right Upper Sacral Area: 100% brown discoloration (does not appear to be eschar), present on admission. No odor, no drainage. Recommend continue: Cleanse site with normal Saline. Pat dry. Put moisture barrier cream onto wound and ayanna-wound. Cover with non-adherent foam dressing, then transparent dressing. Perform wound care daily, and and needed for dressing soiling or dislodgment. 5) Left Heel: Unstageable Pressure Ulcer, present on admission. Wound bed is 85% yellow tissue, 15% pink tissue. No odor, no drainage. Ayanna-wound intact. Recommend continue: Cleanse wound with normal Saline. Pat dry. Put moisture barrier cream onto ayanna-wound. Put on Venelex ointment onto wound bed. Cover with foam dressing. Perform wound care daily, and and needed for dressing soiling or dislodgment. 6) Right Distal Lateral Lower Extremity, Superior to Malleolus: Chronic wound with 100% black eschar, and scar tissue, present on admission. No odor, no drainage. Ayanna-wound intact. Recommend continue: Cleanse wound with normal Saline. Pat dry. Put moisture barrier cream onto ayanna-wound. Put on Venelex ointment onto wound bed. Cover with foam dressing. Perform wound care daily, and and needed for dressing soiling or dislodgment. 7) Left Distal Lateral Lower Extremity: Scar tissue from old surgery with four wounds, present on admission. Wounds are 100% yellow tissue. No odor, scant yellow drainage. Recommend continue: Cleanse wound with normal Saline. Pat dry. Put moisture barrier cream onto ayanna-wound. Put on Venelex ointment onto wound bed. Cover with foam dressing. Perform wound care daily, and and needed for dressing soiling or dislodgment. 8) Right Great Toe Chronic wound with 100% black eschar, present on admission. No odor, scant yellow drainage. Ayanna-wound intact. Recommend continue: No dressing needed. Continue to monitor shift. 9) Left Lateral Foot at Fifth Metatarsal Head: Scar tissue, light pink/irina in color, present on admission. No odor, no drainage. Recommend continue: Cover with foam dressing for protection. Elevate, offload and float left foot. Also recommend continue: Reposition patient side to side only every 2 hours with pillow support. Offload pressure areas with pillows for pressure redistribution. Use moisture barrier cream on buttocks and other moisture susceptible areas qid and prn for soiling. Maintain patient on low air-loss therapy. Place towel rolls above and below left lower extremity wound to float, and use an additional towel roll to prevent external rotation of left lower extremity and also use towel rolls to prevent external rotation of right lower extremity.
--- NOTE | 2016-10-15 15:30 | NUR ---
WOUND CARE WOUND CARE DONE WITH WOUND CARE NURSE. SEE WOUND RE-EVALUATION NOTE.
--- NOTE | 2016-10-15 16:00 | NUR ---
NOTE: PATIENT IS RESTING COMFORTABLY IN BED. NO S/S OF DISTRESS OR SOB. PATIENT IS AWAKE. PATIENT'S POA VISITING. THEY STATED THAT PATIENT SHOULD NOT HAVE ATIVAN OR MORPHINE, HE CANNOT HANDLE IT. WILL GIVE IN REPORT AND PASS ON INFORMATION TO MD.
--- NOTE | 2016-10-15 16:15 | NUR ---
Nutrition F/U Admitting Diagnosis Prolapsed colostomy, sepsis, moderate malnutrition Reviewed Pertinent Medical/Surgical Hx Medical Record Medical History Comment: T7 paraplegia, depression, bilateral ankle fracture, R hip fracture, DM, atr fibr, decubitus ulcers per MD notes Subjective Information Pt was undergoing wound care at time of RD visit. Pt is POD 3 s/p exploratory laparotomy revision of ileostomy, lysion of adhesion, immobilization of hepatic flexure per MD notes. Pt also had swallow eval done 10/13/16; ST rec: mechanical soft, finely chopped diet w/ thin liquids. Per EMR, PO Intakes: 18% average x2 meals, x1 refusal. Output (stool): 400 ml 10/15/16. I/O: 1500/2550 (-1050 ml) per 12 hours. Pt is not yet meeting optimal nutritional needs, but current diet remains appropriate at this time. Pt is not appropriate for nutrition education. Current Diet Order/Nutrition Support Clear liquid x2 days Patient/Significant Other Unable To Verbalize Education Provided Not Indicated Pertinent Medications magnesium sulfate, k-dur, zofran, ativan, colace, morphine, lipitor, lasix, gentamicin per pharmacy, piperacillin/tazobactam, D5%/NaCl IV at 70 ml/hr (286 kcal/day) Pertinent Labs BG 138 H, POC BG 146 H, BNP 973 H (10/12/16), WBC 17 H Height (Feet) 6 feet Height (Inches) 1.00 inches Weight (Pounds) 174 pounds (admission) Weight (Calculated Kilograms) 78.384808 kilograms Patient Weight 78.925 kg Body Mass Index 22.95 kg/m2 Usual Weight 160 lbs %UBW 109 %IBW 94 Mccoll/Adjusted Body Weight IBW: 184 lb, 84 kg Recent Weight Change No - Per pt report Weight Status Appropriate Last BM Oct 15, 2016 Food Allergies No Usual Diet At Home Regular Skin Integrity Comment: Slim scale: 12; per Project Engineer note 10/13/16: skin is poor. 1) Right Buttock near Ischium: Pressure Ulcer, present on admission. 2) Left Buttock near Ischium: Pressure Ulcer, present on admission. 3) Left Lateral Buttock: Pressure Ulcer, present on admission. 4) Right Upper Sacral Area: 100% brown discoloration (does not appear to be eschar), present on admission. 5) Left Heel: Unstageable Pressure Ulcer, present on admission. 6) Right Distal Lateral Lower Extremity, Superior to Malleolus: Chronic wound with 100% black eschar, and scar tissue, present on admission. 7) Left Distal Lateral Lower Extremity: Scar tissue from old surgery with four wounds, present on admission. 8) Right Great Toe Chronic wound with 100% black eschar, present on admission. 9) Left Lateral Foot at Fifth Metatarsal Head: Scar tissue, light pink/irina in color, present on admission. Current % PO Negligible <25% Estimated Energy Expenditure (kcals/day) 9570-9948 kcal/day (30-35 kcal/kg CBW for sepsis, multiple wounds) Estimated Protein Required (g/day) 137-182 gm/day (1.5-2 gm/kg CBW for sepsis, multiple wounds) Estimated Fluid Required (l/day) 2.8-3 L/day (1 ml/kcal/day for maintenance) Problem/Etiology/Signs/Symptoms Increased nutritional needs related to metabolic demands as evidenced by estimated nutritional requirements for sepsis and multiple wounds, and current NPO status per RN report. Expected Outcomes/Goals - Monitor advancement of diet w/ goal of pt meeting at least 50% of estimated nutritional needs,, labs trending WNL, normal GI function, ands skin integrity/wt maintenance Dietitian Recommendations * Recommend continuing clear liquid diet per MD * Consider advance diet per MD (CCHO, mechanical soft, finely chopped diet w/ thin liquids) Follow Up High Risk: F/U in 2-3 days Addendum: 10/15/16 at [address] CORRECTION: Dietitian Recommendations * Recommend continuing clear liquid diet per MD * Consider advance diet per MD (CCHO, mechanical soft, finely chopped diet w/ thin liquids) * Consider MVI and VIT C
[2016-10-15] MEDS: BALSAM PERU/CASTOR OIL 60 GM OINT...G. TP SCH (16:35)
[2016-10-15 16:53] VITALS: BP 106/66; PULSE 81; RESP 18; TEMP 98; O2SAT 95
--- NOTE | 2016-10-15 17:00 | NUR ---
DR. BAZZI/WOUND CARE PER MARLEN, PROP AND EFFECTS DESIGNER, DT. JLUIS SAID THAT THERE WILL BE A POSSIBLE DEBRIDEMENT ON WEDNESDAY AND NOT THE WOUND VAC ORIGINALLY DISCUSSED. WILL CONTINUE TO FOLLOW UP.
--- NOTE | 2016-10-15 18:39 | NUR ---
CLOSING NOTE: PATIENT IS RESTING COMFORTABLY IN BED. NO S/S OF DISTRESS OR SOB. PATIENT IS AWAKE BUT NOT ALERT. MELO IS DRAINING TO GRAVITY. IV IS PATENT AND INFUSING. COLOSTOMY BAG IN PLACE. CALL LIGHT IN REACH, BED IN LOWEST POSITION, AND WILL GIVE REPORT TO NIGHT NURSE.
[2016-10-15 20:00] VITALS: PULSE 89; RESP 20; TEMP 98.9; O2SAT 99
--- NOTE | 2016-10-15 20:00 | NUR ---
NOTE Patient resting on the bed, on air mattress. oriented x1. No acute distress. Respiration even and unlabored. On O2 2L/min via oximizer. IV to the left FA, gauge22, with ordered ivf infusing well, patent. No signs of infection noted on iv site. Midline abdominal incision with dressing noted. Colostomy intact to right abdomen area, draining brown liquid color of output. Suprapubic catheter intact, draining to gravity. Wound to the left and right buttocks, left and right heel, sacral,rite great toe, and left foot clean,dry, and intact. On contact isolation for ESBL of urine. SCD to damaris leg. Safety measures in progress. Bed locked and in low position, side rails up x3, bed alarm on. Call light within reached. Will continue to monitor.
--- NOTE | 2016-10-15 22:25 | NUR ---
NOTES, SCHEDULED PO MEDICATION ADMINISTERED. PT TOLERATED MEDS WELL. WILL CONTINUE TO MONITOR.
[2016-10-16 00:27] VITALS: BP 113/68; PULSE 70; RESP 20; TEMP 98.9; O2SAT 95
--- NOTE | 2016-10-16 00:32 | NUR ---
NOTES, SCHEDULED PO MEDICATION ADMINISTERED. PT TOLERATED MEDS WELL. WILL CONTINUE TO MONITOR. Addendum: 10/16/16 at 0034 by Emerald Mccarthy LVN WRONG TIME ENTRY
--- NOTE | 2016-10-16 00:39 | NUR ---
NOTES; Reposition patient to the side with pillow support. Offloaded pressure areas with pillows for pressure redistribution. Safety measures in progress. Call light within reach.
--- NOTE | 2016-10-16 02:00 | NUR ---
NOTES; Reposition patient to the side with pillow support. Offloaded pressure areas with pillows for pressure redistribution. Safety measures in progress. Call light within reach.
--- NOTE | 2016-10-16 04:00 | NUR ---
NOTES; Reposition patient to the side with pillow support. Offloaded pressure areas with pillows for pressure redistribution. Safety measures in progress. Call light within reach.
--- NOTE | 2016-10-16 05:20 | NUR ---
Notes Left and right buttocks wound, floresita wound and wound base is pink, no odor. Cleansed wound with normal Saline. Pat dry. moisture barrier cream onto floresita-wound. Venelex ointment onto wound bed. 2.2 cm TenderWet dressing into wound bed. Covered wound with non-adherent foam dressing,secured dressing with transparent dressing. Right upper sacral wound Cleansed with normal Saline. Pat dry. moisture barrier cream to floresita-wound. Covered wound with non-adherent foam dressing, secured wound with transparent dressing. Left and right heel wound Cleansed with normal Saline. Pat dry, moisture barrier cream applied onto floresita-wound. Venelex ointment onto wound bed. Cover with foam dressing. Reposition patient to the side with pillow support. Offload pressure areas with pillows for pressure redistribution. Maintain patient on low air-loss therapy. Place towel rolls above and below left lower extremity wound to float. Towel roll used to prevent external rotation of left lower extremity as per wound care nurse orders. No facial grimacing of pain noted. denies any pain at this time. safety measures in progress.
[2016-10-16 05:56] VITALS: BP 117/84; PULSE 68; RESP 18; TEMP 98.7; O2SAT 94
[2016-10-16] MEDS: PIPERACILLIN/TAZO 4.5GM/DEX-IS 100 ML IV SCH ×2 (06:27→22:23)
[2016-10-16 06:47] LABS: CALCIUM 8.2 mg/dL (8.4-11.0); CREATININE 1.48 mg/dL (0.55-1.30); POTASSIUM 3.1 mmol/L (3.5-5.1)
--- NOTE | 2016-10-16 06:50 | NUR ---
NOTES; BLOOD SUGAR FOUND TO BE 131. NO INSULIN NEEDED PER SLIDING SCALE COVERAGE. ALL NEEDS ATTENDED. SAFETY MEASURES MAINTAINED.
[2016-10-16 07:04] LABS: BASOPHILS # (AUTO) 0.1 K/uL (0.0-0.2); BASOPHILS % (AUTO) 0.4 % (0.0-2.0); EOSINOPHILS # (AUTO) 0.5 K/uL (0.0-0.4); EOSINOPHILS % (AUTO) 3.4 % (0.0-4.0); HEMATOCRIT 36.5 % (36-54); HEMOGLOBIN 11.3 g/dL (14.0-18.0); LYMPHOCYTES # (AUTO) 2.1 K/uL (1.0-5.5); LYMPHOCYTES % (AUTO) 15.1 % (20.5-51.5); MEAN CORPUSCULAR HEMOGLOBIN 24 pg (27-31); MEAN CORPUSCULAR HGB CONC 31 % (32-36); MEAN CORPUSCULAR VOLUME 77 fL (79.0-98.0); MONOCYTES # (AUTO) 0.9 K/uL (0.0-1.0); MONOCYTES % (AUTO) 6.4 % (1.7-9.3); NEUTROPHILS % (AUTO) 74.7 % (40.0-70.0); PLATELET COUNT (AUTO) 398 K/uL (130-430); RED BLOOD CELL COUNT(AUTO) 4.77 MIL/uL (4.2-6.2); RED CELL DISTRIBUTION WIDTH 24.7 % (9.0-15.0); WHITE BLOOD COUNT (AUTO) 13.6 K/uL (4.8-10.8)
[2016-10-16 08:00] VITALS: BP 117/68; PULSE 79; RESP 18; TEMP 97.6; O2SAT 98
--- NOTE | 2016-10-16 08:00 | NUR ---
OPENING NOTE PATIENT IS AWAKE, COOPERATIVE. LETHARGIC WHEN SPEAKING. BLE PROPPED ON PILLOWS, WOUNDS DRESSED AND CLEANED BY NOCS AT 0500. LUNGS CLEAR NO SIGNS OF DISTRESS
--- NOTE | 2016-10-16 08:45 | NUR ---
DR BAZZI IN TO SEE PATIENT REMOVED DRESSINGS TO ASSESS WOUNDS. WILL REDRESS WOUNDS. STATES PATIENT MAY GET BL WOUND CLOSURES IN OR ON WEDNESDAY.
[2016-10-16] MEDS: AMIODARONE HCL 200 MG TABLET PO SCH ×2 (09:35→22:18)
[2016-10-16] MEDS: CARVEDILOL 6.25 MG TABLET (COREG) PO SCH ×2 (09:35→22:17)
[2016-10-16] MEDS: POTASSIUM CHLORIDE 20 MEQ TAB.PRT.SR PO SCH (09:35)
[2016-10-16] MEDS: BACLOFEN 10 MG TABLET PO SCH ×3 (09:35→22:18)
[2016-10-16] MEDS: ATORVASTATIN 10 MG TABLET PO SCH (09:35)
[2016-10-16] MEDS: DULoxetine HCL 30 MG CAPSULE.DR (CYMBALTA) PO SCH ×2 (09:35→22:19)
[2016-10-16] MEDS: BALSAM PERU/CASTOR OIL 60 GM OINT...G. TP SCH (09:36)
[2016-10-16] MEDS: FUROSEMIDE 40 MG/4 ML VIAL IVP SCH ×2 (09:36→22:23)
--- NOTE | 2016-10-16 09:45 | NUR ---
DR ESTRADA IN TO SEE PATIENT ORDERS FOR GABAPENTIN GIVEN
[2016-10-16] MEDS ORDERED: GABAPENTIN 100 MG CAPSULE PO ONE (10:00)
--- NOTE | 2016-10-16 10:59 | NUR ---
DR RICH IN TO SEE PATIENT
[2016-10-16 12:14] VITALS: BP 106/68; PULSE 69; RESP 18; TEMP 97; O2SAT 97
--- NOTE | 2016-10-16 12:28 | NUR ---
FAMILY CALLED REGARDING PATIENTS STATUS. EXPLAINED PT WAS MORE VERBAL AND ALERT TODAY AND ABLE TO EXPRESS NEEDS. FAMILY IS VERY CONCERNED THAT PT HAS ATIVAN AND MORPHINE ON EMAR AND HAS REQUESTED THE PT NOT RECEIVE ANY MORPHINE OR ATIVAN HE BECOMES TOO ALTERED.
[2016-10-16] MEDS: INSULIN ASPART 100 UNITS/ML, 10 ML VIAL (NovoLOG) SUBCUT PRN ×3 (12:52→22:21)
--- NOTE | 2016-10-16 13:12 | NUR ---
BG 168, COVERED WITH 2 UNITS OF INSULIN. PATIENT IS FEEDING HIMSELF HIS CL LUNCH
[2016-10-16] MEDS: D5/0.45 NS 1,000 ML IV SCH (13:41)
[2016-10-16] MEDS: GABAPENTIN 100 MG CAPSULE PO SCH ×2 (15:17→22:18)
--- NOTE | 2016-10-16 15:48 | NUR ---
PATIENT IS SLEEPING, NO SIGNS OF DISTRESS OR PAIN. IV INFUSING, NO INFILTRATION NOTED
[2016-10-16 16:23] VITALS: BP 118/70; PULSE 79; RESP 17; TEMP 98; O2SAT 95
--- NOTE | 2016-10-16 17:49 | NUR ---
BG 153. 2 UNITS OF INSULIN FOR COVERAGE. PT IS BEING FED BY LOAN COLLECTOR AT BEDSIDE. NO SIGNS OF DISTRESS. IV INFUSING PER ORDERS. NO INFILTRATION. NO ACUTE DISTRESS. PT REPORTS BEING COMFORTABLE.
[2016-10-16 20:00] VITALS: BP 101/52; PULSE 78; RESP 20; TEMP 97.9; O2SAT 97
--- NOTE | 2016-10-16 20:00 | NUR ---
NOTE Patient resting in the bed, on air mattress. oriented x1. No acute distress or SOB noted. Respiration even and unlabored. On O2 5L/min via Oxymizer. IV to the left FA, gauge22, with ordered ivf infusing well, patent. No signs of infection noted on iv site. Midline abdominal incision with wali open to air. Colostomy intact to right abdomen area, draining brown liquid color of output. Suprapubic catheter intact, draining to gravity. Wound to the left and right buttocks, left and right heel, sacral,rite great toe, and left foot clean,dry, and intact. Pt demonstrated IS up to 1000cc. On contact isolation for ESBL of urine. SCD to damaris leg. Safety measures in progress. Bed locked and in low position, side rails up x3, bed alarm on. Call light within reached. Will continue to monitor. Addendum: 10/17/16 at 0846 by Emerald Mccarthy LVN MIDLINE INCISION GLUED AND OPEN TO AIR.
--- NOTE | 2016-10-16 22:31 | NUR ---
NOTES; SCHEDULED PO MEDICATION ADMINISTERED. PT TOLERATED MEDS WELL. BLOOD SUGAR FOUND TO BE 218. ORDERED INSULIN ADMINISTERED PER SLIDING SCALE COVERAGE. WILL CONTINUE TO MONITOR.
--- NOTE | 2016-10-16 23:30 | NUR ---
NOTES; TOTAL CHG BATH GIVEN, LINEN CHANGED. WOUND TO THE BUTTOCKS AND SACRAL CLEAN,DRY, AND INTACT. COLOSTOMY CARE PROVIDED. REPOSITIONED. SAFETY MEASURES IN PROGRESS.
[2016-10-17] VITALS (11 sets, daily range): BP systolic 81–127; BP diastolic 50–68; PULSE 58–84; RESP 18; TEMP 96.8–98.1; O2SAT 97–100
--- NOTE | 2016-10-17 02:00 | NUR ---
NOTES; Reposition patient to the side with pillow support. Offloaded pressure areas with pillows for pressure redistribution. Safety measures in progress. Call light within reach.
--- NOTE | 2016-10-17 04:00 | NUR ---
NOTES; Reposition patient to the side with pillow support. Offloaded pressure areas with pillows for pressure redistribution. Safety measures in progress. Call light within reach.
[2016-10-17] MEDS: D5/0.45 NS 1,000 ML IV SCH (05:23)
[2016-10-17] MEDS: PIPERACILLIN/TAZO 4.5GM/DEX-IS 100 ML IV SCH ×3 (05:26→22:55)
--- NOTE | 2016-10-17 06:30 | NUR ---
NOTES; BLOOD SUGAR FOUND TO BE 124. NO INSULIN NEEDED PER SLIDING SCALE COVERAGE. ALL NEEDS ATTENDED. SAFETY MEASURES MAINTAINED.
[2016-10-17 06:56] LABS: BASOPHILS # (AUTO) 0.1 K/uL (0.0-0.2); BASOPHILS % (AUTO) 0.6 % (0.0-2.0); EOSINOPHILS # (AUTO) 1.1 K/uL (0.0-0.4); HEMATOCRIT 33.5 % (36-54); HEMOGLOBIN 10.8 g/dL (14.0-18.0); LYMPHOCYTES # (AUTO) 2.8 K/uL (1.0-5.5); LYMPHOCYTES % (AUTO) 19.6 % (20.5-51.5); MEAN CORPUSCULAR HEMOGLOBIN 24 pg (27-31); MEAN CORPUSCULAR HGB CONC 32 % (32-36); MEAN CORPUSCULAR VOLUME 76 fL (79.0-98.0); MONOCYTES % (AUTO) 6.8 % (1.7-9.3); NEUTROPHILS # (AUTO) 9.2 K/uL (1.8-7.7); PLATELET COUNT (AUTO) 354 K/uL (130-430); RED BLOOD CELL COUNT(AUTO) 4.44 MIL/uL (4.2-6.2); RED CELL DISTRIBUTION WIDTH 24.2 % (9.0-15.0); WHITE BLOOD COUNT (AUTO) 14.2 K/uL (4.8-10.8)
--- NOTE | 2016-10-17 08:00 | NUR ---
AM Initial Notes Pt aaox1, confused but calm and cooperative. No complaints of pain or discomfort. No sob, difficulty breathing or distress noted. affirmative action specialist in place. IV to left forearm #[id number] patent with IV fluid infusing. Right abdominal colostomy with brownish fluid noted. Pt has a supra pubic catheter. Multiple decubitus wounds noted and covered with dressing. Pt on Low airloss mattress. Repositioned and will reposition every [address] hours[address]ilateral scd in place. Fall and safety precautions enforced with bed alarm armed. Pt on isolation precautions. Will monitor.
--- NOTE | 2016-10-17 08:18 | NUR ---
NOTES; Reposition patient to the side with pillow support. Offloaded pressure areas with pillows for pressure redistribution. Safety measures in progress. Call light within reach. Addendum: 10/17/16 at 0819 by Emerald Mccarthy LVN WRONG TIME ENTRY
[2016-10-17] MEDS: CARVEDILOL 6.25 MG TABLET (COREG) PO SCH ×2 (09:00→22:28)
[2016-10-17] MEDS: AMIODARONE HCL 200 MG TABLET PO SCH ×2 (09:00→22:02)
[2016-10-17] MEDS: FUROSEMIDE 40 MG/4 ML VIAL IVP SCH ×2 (09:00→22:55)
[2016-10-17] MEDS ORDERED: MAGNESIUM SULFATE 4 GM in D5W 250 ML IV ONE (09:30)
--- NOTE | 2016-10-17 10:00 | NUR ---
Rounds Pt awake resting comfortably in bed. No complaints of pain or discomfort. No distress noted. Blood pressure 81/55 and Pulse 83. Held 0900 scheduled Lasix, Amiodarone and Coreg. Repositioned and kept comfortable. Will monitor blood pressure.
[2016-10-17] MEDS: POTASSIUM CHLORIDE 20 MEQ TAB.PRT.SR PO SCH ×4 (10:51→22:03)
[2016-10-17] MEDS: BACLOFEN 10 MG TABLET PO SCH ×3 (10:52→22:04)
[2016-10-17] MEDS: ATORVASTATIN 10 MG TABLET PO SCH (10:52)
[2016-10-17] MEDS: DULoxetine HCL 30 MG CAPSULE.DR (CYMBALTA) PO SCH ×2 (10:52→22:02)
[2016-10-17] MEDS: GABAPENTIN 100 MG CAPSULE PO SCH ×3 (10:52→22:02)
[2016-10-17] MEDS: BALSAM PERU/CASTOR OIL 60 GM OINT...G. TP SCH (10:53)
--- NOTE | 2016-10-17 11:20 | NUR ---
Rounds Pt awake with no complaints of pain or discomfort. No distress noted. Continued to hold 0900 scheduled Lasix, Amiodarone and Coreg due to decreased BP 97/68. Accucheck 119. No insulin sliding scale needed. Repositioned and kept comfortable. Will monitor.
--- NOTE | 2016-10-17 12:45 | NUR ---
Dr. Vivien GONZALEZ doing rounds and assessing patient.
--- NOTE | 2016-10-17 15:42 | NUR ---
Nutrition F/U Admitting Diagnosis Prolapsed colostomy, sepsis, moderate malnutrition Reviewed Pertinent Medical/Surgical Hx Medical Record Medical History Comment: T7 paraplegia, depression, bilateral ankle fracture, R hip fracture, DM, atr fibr, decubitus ulcers per MD notes Subjective Information Pt seen resting in bed at time of RD visit. Pt somewhat confused, but was able to carry simple conversation. Pt is POD 5 s/p exploratory laparotomy revision of ileostomy, lysion of adhesion, immobilization of hepatic flexure per MD notes. Pt also had swallow eval done 10/13/16; ST rec: mechanical soft, finely chopped diet w/ thin liquids. Per HORSE AND WAGON DRIVER, pt has pending chest x-ray. RD called and spoke w/ Dr. Grimes (surgeon) regarding advancement of diet, as plans are for pt to have debridement of hip wounds on 10/19/16 per HORSE AND WAGON DRIVER. Dr. Grimes stated to advance diet as tolerated; RD to implement full liquid diet to start tonight at dinner. Per EMR, PO Intakes: 34% average x4 meals. Abd is soft and non-distended w/ active bowel sounds. Output (stool): 400 ml 10/15/16. I/O: 770/400 (+370 ml) per 12 hours. Pt is not yet meeting optimal nutritional needs. Pt is not appropriate for nutrition education. Current Diet Order/Nutrition Support Clear liquid x4 days Patient/Significant Other Unable To Verbalize Education Provided Not Indicated Pertinent Medications k-dur, piperacillin/tazobactam, k-dur, magnesium sulfate, k-dur, zofran, ativan, colace, morphine, lipitor, lasix, D5%/NaCl IV at 70 ml/hr (286 kcal/day), D50%-syringe, insulin aspart Pertinent Labs BG 143 H, POC BG 119 H, BNP 973 H (10/12/16), WBC 14.2 H, ALB 1.7 L (10/14/16) Height (Feet) 6 feet Height (Inches) 1.00 inches Weight (Pounds) 174 pounds (admission) Weight (Calculated Kilograms) 78.409742 kilograms Patient Weight 78.925 kg Body Mass Index 22.95 kg/m2 Usual Weight 160 lbs %UBW 109 %IBW 94 [place]/Adjusted Body Weight IBW: 184 lb, 84 kg Recent Weight Change No - Per pt report Weight Status Appropriate Last BM Oct 15, 2016 Food Allergies No Usual Diet At Home Regular Skin Integrity Comment: Slim scale: 13; per Medical Equipment Repair Technician note 10/15/16: skin is poor. 1) Right Buttock near Ischium: Pressure Ulcer, present on admission. 2) Left Buttock near Ischium: Pressure Ulcer, present on admission. 3) Left Lateral Buttock: Pressure Ulcer, present on admission. 4) Right Upper Sacral Area: 100% brown discoloration (does not appear to be eschar), present on admission. 5) Left Heel: Unstageable Pressure Ulcer, present on admission. 6) Right Distal Lateral Lower Extremity, Superior to Malleolus: Chronic wound with 100% black eschar, and scar tissue, present on admission. 7) Left Distal Lateral Lower Extremity: Scar tissue from old surgery with four wounds, present on admission. 8) Right Great Toe Chronic wound with 100% black eschar, present on admission. 9) Left Lateral Foot at Fifth Metatarsal Head: Scar tissue, light pink/irina in color, present on admission. Current % PO Negligible <25% Estimated Energy Expenditure (kcals/day) 0691-6939 kcal/day (30-35 kcal/kg CBW for sepsis, multiple wounds) Estimated Protein Required (g/day) 137-182 gm/day (1.5-2 gm/kg CBW for sepsis, multiple wounds) Estimated Fluid Required (l/day) 2.8-3 L/day (1 ml/kcal/day for maintenance) Problem/Etiology/Signs/Symptoms Increased nutritional needs related to metabolic demands as evidenced by estimated nutritional requirements for sepsis and multiple wounds, and current NPO status per RN report. *improving as pt is receiving partial estimated nutritional needs w/ clear liquid diet Expected Outcomes/Goals - Monitor advancement of diet w/ goal of pt meeting at least 50% of estimated nutritional needs,, labs trending WNL, normal GI function, ands skin integrity/wt maintenance Dietitian Recommendations * Recommend full liquid diet (standard Boost Plus oral supplement provides an additional 1080 kcal/day and 42 gm protein/day) * Consider advance diet per MD ([facility], mechanical soft, finely chopped diet w/ thin liquids) * Consider MVI and VIT C Follow Up High Risk: F/U in 2-3 days
--- NOTE | 2016-10-17 16:40 | NUR ---
Dr. Berto GONZALEZ doing rounds and assessed patient. New orders delivered.
--- NOTE | 2016-10-17 16:40 | NUR ---
Additional note Informed Dr. Thomson that 0900 scheduled Lasix, Amiodarone and Coreg were not administered due to decreased blood pressure.
--- NOTE | 2016-10-17 16:52 | NUR ---
Pain Pt complaints of bilateral lower extremity pain 01/28. Will medicate with Graham.
[2016-10-17] MEDS: HYDROcodone/ACETAMIN 5-325 MG TAB (NORCO/ VICODIN) PO PRN ×2 (17:01→22:12)
[2016-10-17] MEDS: INSULIN ASPART 100 UNITS/ML, 10 ML VIAL (NovoLOG) SUBCUT PRN ×2 (17:07→22:07)
--- NOTE | 2016-10-17 18:30 | NUR ---
Closing notes Pt awake still finishing up with his dinner. Complaints of mild bilateral lower extremity pain but feels more comfortable. No distress noted. Colostomy and supra pubic catheter in place. Repositioned and kept comfortable. Will endorse care to incoming nurse.
--- NOTE | 2016-10-17 19:47 | NUR ---
NOTES; Seen in the bed, on air mattress. oriented x2. No acute distress or SOB noted. Respiration even and unlabored. Pt is on room air. O2 sat 98%. IV to the left FA, gauge22, with ordered ivf infusing well, patent. No signs of infection noted on iv site. Midline abdominal incision open to air. Colostomy intact to right abdomen area, draining brown liquid color of output. Suprapubic catheter intact, draining to gravity. Wound to the left and right buttocks, left and right heel, sacral,rite great toe, and left foot clean,dry, and intact. Pt demonstrated IS up to 1000cc. On contact isolation for ESBL of urine. SCD to damaris leg. Safety measures in progress. Bed locked and in low position, side rails up x3, bed alarm on. Call light within reached. Will continue to monitor.
--- NOTE | 2016-10-17 22:00 | NUR ---
NOTES; Patient repositioned with pillow support. Safety measures in progress.
--- NOTE | 2016-10-17 22:30 | NUR ---
NOTES; SCHEDULED PO MEDICATION ADMINISTERED. PT TOLERATED MEDS WELL.
[2016-10-18] VITALS (8 sets, daily range): BP systolic 100–124; BP diastolic 42–77; PULSE 64–81; RESP 15–20; TEMP 96.2–98; O2SAT 96–100
--- NOTE | 2016-10-18 | NUR ---
NOTES; Patient repositioned with pillow support. Safety measures in progress.
--- NOTE | 2016-10-18 00:38 | NUR ---
NOTES; APPEARED TO BE SLEEPING, EYES CLOSED. RESPIRATION EVEN AND UNLABORED. NO ACUTE DISTRESS NOTED. SAFETY MEASURES IN PROGRESS.
[2016-10-18] MEDS: HYDROcodone/ACETAMIN 5-325 MG TAB (NORCO/ VICODIN) PO PRN ×4 (02:08→22:14)
--- NOTE | 2016-10-18 02:08 | NUR ---
NOTES; PT C/O 01/28 HIP PAIN. PT REQUESTING FOR MORPHINE. BP 90/52, HR 61. INFORMED PT THAT BP IS LOW TO ADMINISTER MORPHINE IV BECAUSE MORPHINE WILL DROP BP MUCH LOWER. PT AGREED TO TAKE NORCO. NORCO 2TABS PO ADMINISTERED FOR 01/28 PAIN. REPOSITIONED. WILL CONTINUE TO MONITOR.
[2016-10-18] MEDS: D5/0.45 NS 1,000 ML IV SCH ×4 (02:09→21:15)
--- NOTE | 2016-10-18 03:08 | NUR ---
NOTES; REASSESSED PAIN LEVEL, I/10. PT STATED EFFECTIVE PAIN MEDICATION.
--- NOTE | 2016-10-18 04:00 | NUR ---
NOTES; WATCHING TV IN BED. BP 90/56, HR 65. SAFETY MEASURES IN PROGRESS.
[2016-10-18] MEDS: PIPERACILLIN/TAZO 4.5GM/DEX-IS 100 ML IV SCH ×3 (05:46→21:13)
--- NOTE | 2016-10-18 06:50 | NUR ---
NOTES; BLOOD SUGAR FOUND TO BE 129. NO INSULIN NEEDED PER SLIDING SCALE COVERAGE. ALL NEEDS ATTENDED. SAFETY MEASURES MAINTAINED.
--- NOTE | 2016-10-18 06:52 | NUR ---
NOTES; BP 100/54, HR 71. ALL NEEDS ATTENDED. SAFETY MEASURES AND ISOLATION PRECAUTION MAINTAINED.
[2016-10-18 07:05] LABS: BASOPHILS # (AUTO) 0.1 K/uL (0.0-0.2); BASOPHILS % (AUTO) 0.4 % (0.0-2.0); EOSINOPHILS # (AUTO) 1.4 K/uL (0.0-0.4); EOSINOPHILS % (AUTO) 11.4 % (0.0-4.0); HEMATOCRIT 31.4 % (36-54); HEMOGLOBIN 10.1 g/dL (14.0-18.0); LYMPHOCYTES # (AUTO) 2.5 K/uL (1.0-5.5); LYMPHOCYTES % (AUTO) 20.1 % (20.5-51.5); MEAN CORPUSCULAR HEMOGLOBIN 24 pg (27-31); MEAN CORPUSCULAR HGB CONC 32 % (32-36); MEAN CORPUSCULAR VOLUME 75 fL (79.0-98.0); MONOCYTES # (AUTO) 0.9 K/uL (0.0-1.0); MONOCYTES % (AUTO) 6.8 % (1.7-9.3); NEUTROPHILS # (AUTO) 7.7 K/uL (1.8-7.7); NEUTROPHILS % (AUTO) 61.3 % (40.0-70.0); PLATELET COUNT (AUTO) 299 K/uL (130-430); RED BLOOD CELL COUNT(AUTO) 4.18 MIL/uL (4.2-6.2); RED CELL DISTRIBUTION WIDTH 23.6 % (9.0-15.0); WHITE BLOOD COUNT (AUTO) 12.6 K/uL (4.8-10.8)
[2016-10-18 07:12] LABS: ALBUMIN 1.6 g/dL (3.4-4.8); CALCIUM 8.1 mg/dL (8.4-11.0); CREATININE 1.49 mg/dL (0.55-1.30); POTASSIUM 4.1 mmol/L (3.5-5.1); TOTAL BILIRUBIN 0.4 mg/dL (0.0-1.0); TOTAL PROTEIN, SERUM 6.9 g/dL (6.4-8.3)
--- NOTE | 2016-10-18 08:00 | NUR ---
AM Initial Notes Pt aaox3, with episodes of confusion and forgetfulness but calm and cooperative. Complaints of pain and discomfort to hips radiating to feet. No sob, difficulty breathing or distress noted. athletic monitor in place. IV to left forearm #22g patent with IV fluid infusing. Right abdominal colostomy with brownish fluid noted. Pt has a supra pubic catheter. Multiple decubitus wounds noted and covered with dressing. Pt on Low airloss mattress. Repositioned and will reposition every 2 hours. Bilateral scd in place. Fall and safety precautions enforced with bed alarm armed. Pt on isolation precautions. Will monitor.
[2016-10-18] MEDS: FUROSEMIDE 40 MG/4 ML VIAL IVP SCH ×2 (08:50→21:13)
[2016-10-18] MEDS: CARVEDILOL 6.25 MG TABLET (COREG) PO SCH ×2 (09:00→20:44)
[2016-10-18] MEDS: POTASSIUM CHLORIDE 20 MEQ TAB.PRT.SR PO SCH (09:45)
[2016-10-18] MEDS: BACLOFEN 10 MG TABLET PO SCH ×3 (09:46→20:42)
[2016-10-18] MEDS: ATORVASTATIN 10 MG TABLET PO SCH (09:46)
[2016-10-18] MEDS: GABAPENTIN 100 MG CAPSULE PO SCH ×3 (09:46→20:41)
[2016-10-18] MEDS: DULoxetine HCL 30 MG CAPSULE.DR (CYMBALTA) PO SCH ×2 (09:46→20:42)
[2016-10-18] MEDS: AMIODARONE HCL 200 MG TABLET PO SCH ×2 (09:52→20:42)
--- NOTE | 2016-10-18 10:00 | NUR ---
Rounds Pt awake with complaints of pain from hips to toes that does not completely go away. Educated patient about pain medication side effects. Blood pressure 108/56 and held Coreg. Will continue to monitor blood pressure. Dr. Toledo made aware. Repositioned and kept comfortable. Will monitor.
[2016-10-18] MEDS: INSULIN ASPART 100 UNITS/ML, 10 ML VIAL (NovoLOG) SUBCUT PRN ×2 (11:27→16:37)
--- NOTE | 2016-10-18 11:30 | NUR ---
Accucheck Blood sugar monitor 162. No insulin sliding scale coverage needed.
[2016-10-18] MEDS: BALSAM PERU/CASTOR OIL 60 GM OINT...G. TP SCH (11:31)
--- NOTE | 2016-10-18 12:00 | NUR ---
Rounds Pt eating lunch. No significant changes noted. Kept comfortable. Will monitor.
--- NOTE | 2016-10-18 14:00 | NUR ---
Rounds Pt asleep. No signs of facial grimacing for pain or discomfort. No distress noted. Will monitor.
--- NOTE | 2016-10-18 16:47 | NUR ---
Rounds Pt awake with complaints of hip, leg and foot pain 12/28. Medicated with [place] 5-325mg 2 tab. Accucheck 154. Insulin sliding scale 2 units of Novolog administered. Repositioned and kept comfortable. Bilateral boots put in. Encouraged to call for assistance. Call light within reach. Will monitor.
--- NOTE | 2016-10-18 18:33 | NUR ---
Closing notes Pt awake resting in bed with complaints of mild pain from hips down to his feet. No distress noted. Colostomy and supra pubic catheter in place. Bilateral heel boots on. Repositioned and kept comfortable. Will endorse care to incoming nurse.
--- NOTE | 2016-10-18 19:27 | NUR ---
PAGED PAGED ALVIN TODD AT [phone] SPOKE WITH GLENN.
--- NOTE | 2016-10-18 19:40 | NUR ---
notes abdominal incision is red,no drainage noted,colostomy bag intact to rt lower abeomen.
--- NOTE | 2016-10-18 19:49 | NUR ---
notes pt with scab to lt nare,ointment applied per request.
--- NOTE | 2016-10-18 19:49 | NUR ---
notes received the pt from the day nurse.pt a/a/ox3 forgetful at times.family member who is the poa is at the bedside.dr wong called back and spoke with the poa about the surgery in the am.surgery consent was signed.dressings to both legs and hips are dry and intact.colostomy bag intact with small amount of brown stool.supra pubic catheter intact.and draining well.pt in isolation for esbi in the urine.monitor in place and shows SR heel boots and scd in place to both lower extremities.call light within reach.iv intact to lt forearm,no redness or swelling noted.safety measures in progress will continue to monitor.
[2016-10-18] MEDS: LACTOBACILLUS RHAMNOSUS GG 1 CAP CAPSULE PO SCH (20:41)
--- NOTE | 2016-10-18 21:35 | NUR ---
notes pt repositioned with pillow support.pt's family member who is the POA stated he only wants the pt to have norco for pain because the dilaudid and morphine makes him confused.
--- NOTE | 2016-10-18 22:14 | NUR ---
NOTES PT C/O SEVERE LEG PAIN 01/28 WAS MEDICATED WITH NORCO 2 TABS PO ,SCANNER CHARTED ONLY 1 TAB.CHARGE NURSE NOTIFIED.
--- NOTE | 2016-10-18 22:29 | NUR ---
notes pt was medicated with norco 2 tabs for a c/o pain to both legs 01/28.
[2016-10-18] MEDS: ZOLPIDEM TARTRATE 5 MG TABLET PO PRN (23:11)
--- NOTE | 2016-10-18 23:41 | NUR ---
notes pt resting and was reminded that he can not have anything by mouth .pt states he understands.call light within reach.continue to monitor.
--- NOTE | 2016-10-19 01:30 | NUR ---
notes pt sleeping,no distress noted.call light within reach.continue to monitor.
--- NOTE | 2016-10-19 03:16 | NUR ---
notes pt sleeping.no distress noted.continue to monitor.
[2016-10-19 04:45] VITALS: BP 98/59; PULSE 71; RESP 20; TEMP 97.2; O2SAT 98
--- NOTE | 2016-10-19 05:29 | NUR ---
notes pt awaken ,chg bath given ,pt repositioned to rt side.scd and heel boots re applied..continue to monitor.
[2016-10-19] MEDS: PIPERACILLIN/TAZO 4.5GM/DEX-IS 100 ML IV SCH (05:40)
--- NOTE | 2016-10-19 06:35 | NUR ---
CLOSING NOTES ACCUCHECK [id number].NO INSULIN NEEDED PER S/S.WILL ENDORSE THE CARE OF THE PT TO THE DAY NURSE.
[2016-10-19 06:42] LABS: CALCIUM 8.4 mg/dL (8.4-11.0); CREATININE 1.69 mg/dL (0.55-1.30); POTASSIUM 3.8 mmol/L (3.5-5.1)
[2016-10-19 07:04] LABS: INR 1.1 (0.80-1.20); PROTHROMBIN TIME 11.5 SECS (9.5-12.5)
[2016-10-19 07:05] LABS: BASOPHILS # (AUTO) 0.1 K/uL (0.0-0.2); BASOPHILS % (AUTO) 0.5 % (0.0-2.0); EOSINOPHILS # (AUTO) 1.1 K/uL (0.0-0.4); EOSINOPHILS % (AUTO) 8.1 % (0.0-4.0); HEMATOCRIT 33.1 % (36-54); HEMOGLOBIN 10.3 g/dL (14.0-18.0); LYMPHOCYTES % (AUTO) 14.6 % (20.5-51.5); MEAN CORPUSCULAR HEMOGLOBIN 24 pg (27-31); MEAN CORPUSCULAR HGB CONC 31 % (32-36); MEAN CORPUSCULAR VOLUME 76 fL (79.0-98.0); MONOCYTES # (AUTO) 0.8 K/uL (0.0-1.0); NEUTROPHILS # (AUTO) 9.7 K/uL (1.8-7.7); NEUTROPHILS % (AUTO) 70.8 % (40.0-70.0); PLATELET COUNT (AUTO) 290 K/uL (130-430); RED BLOOD CELL COUNT(AUTO) 4.38 MIL/uL (4.2-6.2); RED CELL DISTRIBUTION WIDTH 23.8 % (9.0-15.0); WHITE BLOOD COUNT (AUTO) 13.7 K/uL (4.8-10.8)
[2016-10-19 08:00] VITALS: BP 118/74; PULSE 83; RESP 18; TEMP 97
--- NOTE | 2016-10-19 08:00 | NUR ---
OPENING NOTE: RECEIVED REPORT FROM NIGHT NURSE. PATIENT IS RESTING COMFORTABLY IN BED. NO S/S OF DISTRESS OR SOB. PATIENT IS ASLEEP, BUT EASILY WOKEN UP. VITAL SIGNS WNL, ASSESSMENT COMPLETE. MELO DRAINING TO GRAVITY WITH CLEAR COLORED URINE, COLOSTOMY BAG IN PLACE. IV IS PATENT AND INFUSING. PATIENT ON LOW AIR MATTRESS AND SCD'S. ISOLATION CONTACT PRECAUTIONS IN PLACE. CALL LIGHT IN REACH, BED IN LOWEST POSITION, AND WILL CONTINUE TO MONITOR.
[2016-10-19] MEDS: LACTOBACILLUS RHAMNOSUS GG 1 CAP CAPSULE PO SCH ×2 (09:00→20:19)
[2016-10-19] MEDS: AMIODARONE HCL 200 MG TABLET PO SCH ×2 (09:00→20:20)
[2016-10-19] MEDS: ATORVASTATIN 10 MG TABLET PO SCH (09:00)
[2016-10-19] MEDS: POTASSIUM CHLORIDE 20 MEQ TAB.PRT.SR PO SCH (09:00)
[2016-10-19] MEDS: DULoxetine HCL 30 MG CAPSULE.DR (CYMBALTA) PO SCH ×2 (09:00→20:20)
[2016-10-19] MEDS: GABAPENTIN 100 MG CAPSULE PO SCH ×3 (09:00→20:43)
[2016-10-19] MEDS: BACLOFEN 10 MG TABLET PO SCH ×3 (09:00→20:20)
[2016-10-19] MEDS: FUROSEMIDE 40 MG/4 ML VIAL IVP SCH ×2 (09:09→21:39)
[2016-10-19] MEDS: CARVEDILOL 6.25 MG TABLET (COREG) PO SCH ×2 (09:09→20:19)
[2016-10-19] MEDS: BALSAM PERU/CASTOR OIL 60 GM OINT...G. TP SCH (09:10)
--- NOTE | 2016-10-19 10:00 | NUR ---
NOTE: PATIENT IS RESTING COMFORTABLY IN BED. NO S/S OF DISTRESS OR SOB. PATIENT IS AWAKE AND ALERT. CALL LIGHT IN REACH, BED IN LOWEST POSITION, AND WILL CONTINUE TO MONITOR.
--- NOTE | 2016-10-19 10:51 | NUR ---
DISCHARGE PLANNING Notified Stephon Guerrero to evaluate patient for possible discharge back to [facility]. Faxed facesheet to [place] [facility] office [phone]. [facility] will follow up. Addendum: 10/19/16 at 1147 by Stella Ansari DP Spoke with Yolanda who will come today to evaluate patient.
[2016-10-19 11:24] VITALS: BP 134/84; PULSE 80; RESP 19; TEMP 96.4; O2SAT 97
[2016-10-19] MEDS: D5/0.45 NS 1,000 ML IV SCH ×2 (14:00→15:03)
--- NOTE | 2016-10-19 14:00 | NUR ---
Note: Patient is resting comfortably in bed. No s/s of distress or sob. Patient is awake and alert. Call light in reach, bed in lowest position, and will continue to monitor.
--- NOTE | 2016-10-19 14:59 | NUR ---
OR Patient left to surgery.
--- NOTE | 2016-10-19 15:30 | NUR ---
Wound evaluation: Patient is in the operating room for surgical debridement by Dr. Grimes, and possible wound VAC placement. Will reassess patient on next visit.
[2016-10-19] MEDS ORDERED: LR 1,000 ML IV.SOLN IV ONE (15:40)
[2016-10-19] MEDS ORDERED: MIDAZOLAM HCL 5 MG/5 ML VIAL IVP ONE (15:40)
[2016-10-19] MEDS ORDERED: NS IRRIG SOLN 1000 ML IR ONE (15:40)
[2016-10-19] MEDS ORDERED: PROPOFOL 200MG/ 20ML VIAL (DIPRIVAN) IV ONE (15:40)
[2016-10-19] MEDS ORDERED: SEVOFLURANE 15 MIN GAS INH ONE (15:40)
[2016-10-19] MEDS ORDERED: ROCURONIUM BROMIDE 10 MG/ML (ZEMURON) IV ONE (15:40)
[2016-10-19] MEDS ORDERED: LR 1,000 ML IV SCH (16:27)
[2016-10-19] MEDS ORDERED: METOCLOPRAMIDE HCL 10 MG/2 ML VIAL IVP PRN (16:30)
[2016-10-19] MEDS ORDERED: MORPHINE 4 MG/ML INJ. SYRINGE IVP PRN ×3 (16:30)
--- NOTE | 2016-10-19 18:39 | NUR ---
CLOSING NOTE: PATIENT JUST RETURNED FROM OR. PATIENT IN STABLE CONDITION, NO S/S OF DISTRESS OR SOB. PATIENT IS AWAKE AND ALERT. IV IS PATENT AND INFUSING. HEMOVAC IS ON RIGHT HIP. CALL LIGHT IN REACH, BED IN LOWEST POSITION, AND WILL GIVE REPORT TO NIGHT NURSE.
[2016-10-19 19:30] VITALS: BP_SYST 137; BP_SYST 91; BP_DIAS 63; BP_DIAS 74; PULSE 80; PULSE 98; RESP 18; TEMP 96; TEMP 97.7; O2SAT 100; O2SAT 18; O2SAT 97
--- NOTE | 2016-10-19 19:30 | NUR ---
notes received the pt from the day nurse.pt a/a/ox4 no c/o pain at this time.wound vac.applied to lt hip by the RN.hemovac intact to rt hip and is empty.dressing to lower extremites are dry and intact incentive spirometer explained to the pt but states he will practice later.pt remains in isolation for esbl in the urine.colostomy bag intact to rt lower abdomen.abdominal incision is pinkish color.supra pubic catheter intact and is draining well.monitor in place and shows SRscd and heel boots are in place.call light within reach.safety measures in progress..continue to monitor.
[2016-10-19] MEDS: HYDROcodone/ACETAMIN 5-325 MG TAB (NORCO/ VICODIN) PO PRN (20:21)
[2016-10-19] MEDS: ZOLPIDEM TARTRATE 5 MG TABLET PO PRN (20:23)
--- NOTE | 2016-10-19 20:59 | NUR ---
notes repositioned to his lt side.c/o pain to hips 02/28 also asking for a sleeping pill.meds crushed and taken well with apple sauce.accucheck was 132,no insulin needed per s/s.bright red blood noticed in hemavac tubing.
[2016-10-19] MEDS: CEFEPIME 1 GM in D5W 50 ML IV SCH (21:39)
--- NOTE | 2016-10-19 22:14 | NUR ---
NOTES AWAKEN AND NOTES AWAKEN AND REPOSITIONED WITH PILLOW SUPPORT.CONTINUE TO MONITOR.
--- NOTE | 2016-10-19 23:26 | NUR ---
NOTES AWAKEN AND REPOSITIONED WITH PILLOW SUPPORT.CALL LIGHT WITHIN REACH.CONTINUE TO MONITOR.
[2016-10-20 00:09] VITALS: BP 91/63; PULSE 80; RESP 18; TEMP 96.2; O2SAT 100
--- NOTE | 2016-10-20 01:24 | NUR ---
notes awaken and repositioned with pillow support.continue to monitor.
--- NOTE | 2016-10-20 02:44 | NUR ---
NOTES PT REPOSITIONED WITH PILLOW SUPPORT.RETURNS TO SLEEP,CALL LIGHT WITHIN REACH.CONTINUE TO MONITOR.
[2016-10-20] MEDS: HYDROcodone/ACETAMIN 5-325 MG TAB (NORCO/ VICODIN) PO PRN (03:10)
--- NOTE | 2016-10-20 03:15 | NUR ---
notes pt c/o severe leg pain 01/28 was medicated.with norco 2 tabs.colostomy emptied of 1000cc of loose brown stool.pt repositioned with pillow support.continue to monitor.
--- NOTE | 2016-10-20 03:18 | NUR ---
notes no urine in archer bag urine leaking from supra pubic area.
[2016-10-20 04:00] VITALS: BP 93/61; PULSE 97; RESP 18; TEMP 96.1; O2SAT 99
--- NOTE | 2016-10-20 04:15 | NUR ---
notes supra pubic catheter was irrigated with 50 cc ns ,ns noticed draining out of the supra pubic hole.charge nurse was notified .dr durán will be called around 6am.no abdominal distention noted.pt denies pain to bladder area.continue to monitor.
--- NOTE | 2016-10-20 05:27 | NUR ---
notes pt cleaned linen was changed.pt repositioned with pillow support.continue to monitor.
--- NOTE | 2016-10-20 05:40 | NUR ---
notes pt c/o severe pain to his legs,asking for a pain shot,charge nurse called to the pt s room ,RN was notified and will give the morphine.
--- NOTE | 2016-10-20 06:06 | NUR ---
NOTES CALL PLACED TO DR LOWERY.
--- NOTE | 2016-10-20 06:15 | NUR ---
NOTES PHERESIS NURSE IS AT THE BEDSIDE TO DRAW BLOOD.PT CONTINUES TO C/O PAIN.
--- NOTE | 2016-10-20 06:31 | NUR ---
notes spoke with dr durán who is on his way.
[2016-10-20] MEDS: INSULIN ASPART 100 UNITS/ML, 10 ML VIAL (NovoLOG) SUBCUT PRN ×3 (06:39→22:21)
--- NOTE | 2016-10-20 06:54 | NUR ---
closing notes dr durán is here to replace the catheter.will endorse the care of the pt to the day nurse.
[2016-10-20 07:13] LABS: CALCIUM 8.2 mg/dL (8.4-11.0); CREATININE 1.6 mg/dL (0.55-1.30); POTASSIUM 3.8 mmol/L (3.5-5.1)
[2016-10-20 07:19] LABS: BASOPHILS # (AUTO) 0.1 K/uL (0.0-0.2); BASOPHILS % (AUTO) 0.4 % (0.0-2.0); EOSINOPHILS # (AUTO) 0.2 K/uL (0.0-0.4); EOSINOPHILS % (AUTO) 1.3 % (0.0-4.0); HEMATOCRIT 31.6 % (36-54); HEMOGLOBIN 10.2 g/dL (14.0-18.0); LYMPHOCYTES # (AUTO) 1.8 K/uL (1.0-5.5); LYMPHOCYTES % (AUTO) 10.8 % (20.5-51.5); MEAN CORPUSCULAR HEMOGLOBIN 24 pg (27-31); MEAN CORPUSCULAR HGB CONC 32 % (32-36); MEAN CORPUSCULAR VOLUME 75 fL (79.0-98.0); MONOCYTES # (AUTO) 0.7 K/uL (0.0-1.0); MONOCYTES % (AUTO) 4.3 % (1.7-9.3); NEUTROPHILS # (AUTO) 14.1 K/uL (1.8-7.7); NEUTROPHILS % (AUTO) 83.2 % (40.0-70.0); PLATELET COUNT (AUTO) 332 K/uL (130-430); RED BLOOD CELL COUNT(AUTO) 4.22 MIL/uL (4.2-6.2); RED CELL DISTRIBUTION WIDTH 22.9 % (9.0-15.0); WHITE BLOOD COUNT (AUTO) 16.9 K/uL (4.8-10.8)
--- NOTE | 2016-10-20 07:20 | NUR ---
INITIAL NOTE RECEIVED PATIENT FROM TOOL CRIB LEAD NURSE, PATIENT IS AWAKE AND ORIENTED X 4, PATIENT HAS NO COMPLAINTS OF PAIN OR DISCOMFORT AT THIS TIME, ASSESSMENT COMPLETE, PATIENT HAS IV SITE IN LEFT FOREARM WITH FLUIDS RUNNING, NO SIGNS OF INFILTRATION NOTED, PATIENT HAS A WOUND VAC TO LEFT HIP, HEMOVAC TO RIGHT HIP, AND WOUNDS BILATERALLY ON LOWER EXTREMITIES, PATIENT HAS A COLOSTOMY BAG INTACT, PATIENT ALSO HAS SUPRA PUBIC CATHETER THAT WAS REPLACED BY DR. LOWERY WITH YELLOW URINE DRAINING, SCDS ARE CURRENTLY ON, AND HEEL PROTECTORS ARE CURRENTLY ON, REEDUCATED PATIENT ON USE OF CALL LIGHT, PATIENT VERBALIZED UNDERSTANDING, CALL ROTH LEFT NEXT TO PATIENT, BED IN LOWEST POSITION, BED ALARM ON, TWO SIDE RAILS UP, FALL PRECAUTIONS IN PLACE, WILL CONTINUE TO MONITOR PATIENT.
[2016-10-20 08:10] VITALS: BP 96/58; PULSE 82; RESP 16; TEMP 96.8; O2SAT 99
--- NOTE | 2016-10-20 08:54 | NUR ---
DISCHARGE PLANNING Spoke with Stephon Guerrero patient accepted back to [facility]. Bed assignment will be given upon discharge order. DAI Mcclelland made aware. Addendum: 10/20/16 at 1417 by Stella Ansari DP Ordered Radiology CD. Placed transportation packet in nurses station for possible discharge back to [facility].
[2016-10-20] MEDS: AMIODARONE HCL 200 MG TABLET PO SCH ×2 (09:00→22:15)
[2016-10-20] MEDS: FUROSEMIDE 40 MG TABLET PO SCH (09:00)
[2016-10-20] MEDS: CARVEDILOL 6.25 MG TABLET (COREG) PO SCH ×2 (09:00→22:15)
--- NOTE | 2016-10-20 09:25 | NUR ---
MEDICATIONS PATIENT WAS GIVEN MORNING MEDICATIONS, EDUCATED PATIENT ON POTENTIAL SIDE EFFECTS OF MEDICATIONS, PATIENT VERBALIZED UNDERSTANDING, NO OTHER NEEDS AT THIS TIME, WILL CONTINUE TO MONITOR PATIENT, FALL AND CONTACT PRECAUTIONS IN PLACE.
[2016-10-20] MEDS: BACLOFEN 10 MG TABLET PO SCH ×3 (09:31→22:14)
[2016-10-20] MEDS: LACTOBACILLUS RHAMNOSUS GG 1 CAP CAPSULE PO SCH ×2 (09:31→22:15)
[2016-10-20] MEDS: DULoxetine HCL 30 MG CAPSULE.DR (CYMBALTA) PO SCH ×2 (09:31→22:15)
[2016-10-20] MEDS: GABAPENTIN 100 MG CAPSULE PO SCH ×3 (09:31→22:14)
[2016-10-20] MEDS: POTASSIUM CHLORIDE 20 MEQ TAB.PRT.SR PO SCH (09:31)
[2016-10-20] MEDS: ATORVASTATIN 10 MG TABLET PO SCH (09:31)
[2016-10-20] MEDS: CEFEPIME 1 GM in D5W 50 ML IV SCH ×2 (09:32→22:16)
[2016-10-20 09:40] VITALS: BP 93/61; PULSE 85
[2016-10-20] MEDS: HYDROmorphone 1 MG INJ. 1 MG/ML AMPUL IVP PRN ×3 (11:10→20:04)
[2016-10-20] MEDS: BALSAM PERU/CASTOR OIL 60 GM OINT...G. TP SCH (11:10)
--- NOTE | 2016-10-20 11:19 | NUR ---
RN ROUNDS PATIENT STATES HE IS HAVING PAIN ON LOWER LEGS, PRN MEDICATION GIVEN, WILL REASSESS PATIENT, GLUCOSE CHECKED, QP=211, INSULIN GIVEN TO PATIENT, NO OTHER NEEDS AT THIS TIME, WILL CONTINUE TO MONITOR PATIENT, FALL PRECAUTIONS IN PLACE.
[2016-10-20 11:46] VITALS: BP 110/65; PULSE 87; RESP 20; TEMP 96.6; O2SAT 99
--- NOTE | 2016-10-20 12:42 | NUR ---
RN ROUNDS PATIENT IS CURRENTLY SITTING UP IN BED EATING LUNCH, FAMILY MEMBER IS AT BEDSIDE, NO SIGNS OF DISTRESS NOTED, PATIENT STATES HE DOES NOT HAVE ANY DISCOMFORT AT THIS TIME, WILL CONTINUE TO MONITOR PATIENT, FALL PRECAUTIONS IN PLACE.
--- NOTE | 2016-10-20 13:07 | NUR ---
Nutrition F/U Admitting Diagnosis Prolapsed colostomy, sepsis, moderate malnutrition Reviewed Pertinent Medical/Surgical Hx Medical Record Medical History Comment: T7 paraplegia, depression, bilateral ankle fracture, R hip fracture, DM, atr fibr, decubitus ulcers per MD notes Subjective Information Physical: Pt seen resting in bed, awake and alert, w/RN at bedside at time of visit. Pt appeared adequately nourished for height with no phyiscal signs of malnutrition. GI Integrity: Per pattern shop supervisor, abdomen is soft and non-distended with active bowel sounds. BM x1 today, stool: 1000 ml via colostomy bag. Per MD notes, colostomy bag is working well. PO Intakes: Pt reports a fair to good appetite, states he ate 75% of dinner last night and 100% of breakfast this AM. Pt states he is tolerating food textures. PO records 10/18-10/20 average 42%. Plans/Procedures: Pt is s/p wound debridement (10/19/16). Per MD notes, plan for wound care per surgeon and f/u with labs periodically. Current diet is adequate and appropriate, but pt is not receiving optimum nutrition d/t poor PO intakes. Pt declined nutrition education at this time. Current Diet Order/Nutrition Support Mechanical soft x3 days Patient/Significant Other Able to verbalize Education Provided Not Indicated Pertinent Medications k-dur, magnesium sulfate, zofran, ativan, colace, morphine, lipitor, lasix, D50%-syringe, insulin aspart, cefepime IV, culturelle, metronizadole Pertinent Labs BG 167 H, POC BG 152 H, BNP 973 H (10/12/16), WBC 16.9 H, ALB 1.6 L (10/18/16) Height (Feet) 6 feet Height (Inches) 1.00 inches Weight (Pounds) 174 pounds (admission) Weight (Calculated Kilograms) 78.488227 kilograms Patient Weight 78.925 kg Body Mass Index 22.95 kg/m2 Usual Weight 160 lbs %UBW 109 %IBW 94 [place]/Adjusted Body Weight IBW: 184 lb, 84 kg Recent Weight Change No - Per pt report Weight Status Appropriate Last BM October 20, 2016 Food Allergies No Usual Diet At Home Regular Skin Integrity Comment: Slim scale: 13; per Junior Engineer note 10/15/16: skin is poor. 1) Right Buttock near Ischium: Pressure Ulcer, present on admission. 2) Left Buttock near Ischium: Pressure Ulcer, present on admission. 3) Left Lateral Buttock: Pressure Ulcer, present on admission. 4) Right Upper Sacral Area: 100% brown discoloration (does not appear to be eschar), present on a dmission. 5) Left Heel: Unstageable Pressure Ulcer, present on admission. 6) Right Distal Lateral Lower Extremity, Superior to Malleolus: Chronic wound with 100% black eschar, and scar tissue, present on admission. 7) Left Distal Lateral Lower Extremity: Scar tissue from old surgery with four wounds, present on admission. 8) Right Great Toe Chronic wound with 100% black eschar, present on admission. 9) Left Lateral Foot at Fifth Metatarsal Head: Scar tissue, light pink/irina in color, present on admission. Wound Eval (10/19/16): Patient is in the operating room for surgical debridement. Will reassess patient on next visit. Current % PO Poor 42% Estimated Energy Expenditure (kcals/day) 9219-6010 kcal/day (BEE x 1.2-1.5 for sepsis, multiple wounds) Estimated Protein Required (g/day) 137-182 gm/day (1.5-2 gm/kg CBW for sepsis, multiple wounds) Estimated Fluid Required (l/day) 2.8-3 L/day (1 ml/kcal/day for maintenance) Problem/Etiology/Signs/Symptoms Increased nutritional needs related to metabolic demands as evidenced by estimated nutritional requirements for sepsis and multiple wounds. *modified Inadequate nutritional intakes related to loss of appetite and PMH of depression as evidenced by PO records average 42% x7 meals. Expected Outcomes/Goals 1. Monitor PO intakes w/ goal of pt meeting at least 50% of estimated needs with acceptable tolerance 2. Labs trending WNL 3. Normal GI function 4. Improved skin integrity, wound healing 5. Maintain weight status Dietitian Recommendations * Continue mechanical soft diet per MD order * Consider Boost Plus BID to provide an additional 720 kcal and 28 gm protein per day * Consider MVI and VIT C Comments RD reviewed/approved underwriting intern's note. JACK RD. Follow Up High Risk: F/U in 2-3 days Addendum: 10/20/16 at [address] CORRECTIONS: Dietitian Recommendations * Continue mechanical soft diet per MD order * Consider Boost Glucose Control BID to provide an additional 500 kcal/day and 28 gm protein/day * Consider MVI and VIT C RD reviewed/approved underwriting intern's note. MARCOS SANTIAGO.
--- NOTE | 2016-10-20 13:57 | NUR ---
RN ROUNDS PATIENT IS AWAKE AND WATCHING TV, PATIENT HAS NO COMPLAINTS OF PAIN AT THIS TIME, NO SIGNS OF DISTRESS NOTED, ZEFERINO CONTINUE TO MONITOR PATIENT, CALL ROTH LEFT IN PATIENT'S HAND, FALL PRECAUTIONS IN PLACE.
[2016-10-20] MEDS: metroNIDAZOLE 250 mg/NS 50 ML IV SCH ×2 (14:10→23:36)
--- NOTE | 2016-10-20 15:40 | NUR ---
RN ROUNDS PATIENT STATED HE WAS HAVING BILATERAL LEG PAIN, PRN PAIN MEDICATION GIVEN WILL REASSESS TO SEE EFFECTIVENESS, NO OTHER NEEDS AT THIS TIME, CALL ROTH LEFT NEXT TO PATIENT,FALL PRECAUTIONS IN PLACE, WILL CONTINUE TO MONITOR
--- NOTE | 2016-10-20 16:44 | NUR ---
RN ROUNDS PATIENT IS SITTING UP IN BED EATING FOOD BOUGHT FROM FAMILY FRIEND, GLUCOSE CHECKED, GLUCOSE WAS 134, NO INSULIN NEEDED, INSTRUCTED PATIENT TO USE CALL ROTH IF ASSISTANCE IS NEEDED, PATIENT VERBALIZED UNDERSTANDING, NO OTHER NEEDS AT THIS TIME, WILL CONTINUE TO MONITOR PATIENT, FALL PRECAUTIONS IN PLACE.
[2016-10-20 16:58] VITALS: BP 107/68; PULSE 80; RESP 18; TEMP 96.8; O2SAT 99
--- NOTE | 2016-10-20 18:42 | NUR ---
CLOSING NOTE PATIENT IS CURRENTLY SITTING UP IN BED WATCHING TV, NO SIGNS OF DISTRESS NOTED, PATIENT HAS NO COMPLAINTS OF DISCOMFORT, ALL NEEDS MET, WILL ENDORSE PATIENT TO PARA PROFESSIONAL NURSE, BED IN LOWEST POSITION, CALL ROTH LEFT NEXT TO PATIENT'S HAND, BED ALARM ON, FALL PRECAUTIONS IN PLACE
--- NOTE | 2016-10-20 20:00 | NUR ---
ROUNDS PATIENT RESTING COMFORTABLY IN BED, VITALS STABLE, NO PAIN AND DISCOMFORT AT THIS TIME. ASSESSMENT DONE AND DOCUMENTED. SEE FLOWSHEET. NEEDS ATTENDED TO. REPOSITIONED AND MADE COMFORTABLE. SAFETY AND FALL PRECAUTION MEASURES IN PLACED. BED IN LOW AND LOCKED POSITION. CALL LIGHT PLACED WITHIN REACH.
--- NOTE | 2016-10-20 21:30 | NUR ---
MEDICATIONS DUE MEDICATIONS GIVEN SCHEDULED , TOLERATED WELL. WILL CONTINUE TO MONITOR.
[2016-10-21] VITALS (7 sets, daily range): BP systolic 101–116; BP diastolic 49–70; PULSE 56–81; RESP 16–18; TEMP 96.5–98.1; O2SAT 96–99
--- NOTE | 2016-10-21 | NUR ---
PATIENT RESTING: Patient resting quietly. No acute distress noted. Vital signs within normal range.
--- NOTE | 2016-10-21 02:10 | NUR ---
PATIENT RESTING: Patient resting quietly. No acute distress noted. Vital signs within normal range.
[2016-10-21] MEDS: HYDROmorphone 1 MG INJ. 1 MG/ML AMPUL IVP PRN ×5 (02:11→20:42)
--- NOTE | 2016-10-21 04:00 | NUR ---
PATIENT RESTING: Patient resting quietly. No acute distress noted. Vital signs within normal range.
[2016-10-21] MEDS: metroNIDAZOLE 250 mg/NS 50 ML IV SCH ×3 (05:44→22:26)
[2016-10-21 06:49] LABS: CALCIUM 8.2 mg/dL (8.4-11.0); CREATININE 1.47 mg/dL (0.55-1.30); POTASSIUM 4.4 mmol/L (3.5-5.1)
--- NOTE | 2016-10-21 06:50 | NUR ---
CLOSING NOTES PATIENT ASLEEP, VITALS STABLE, ALL NEEDS ATTENDED TO. CALL LIGHT PLACED WITHIN REACH.
[2016-10-21 06:51] LABS: BASOPHILS # (AUTO) 0.1 K/uL (0.0-0.2); BASOPHILS % (AUTO) 0.4 % (0.0-2.0); EOSINOPHILS # (AUTO) 0.6 K/uL (0.0-0.4); EOSINOPHILS % (AUTO) 3.8 % (0.0-4.0); HEMATOCRIT 29.5 % (36-54); HEMOGLOBIN 9.2 g/dL (14.0-18.0); LYMPHOCYTES # (AUTO) 2.2 K/uL (1.0-5.5); LYMPHOCYTES % (AUTO) 13.8 % (20.5-51.5); MEAN CORPUSCULAR HEMOGLOBIN 24 pg (27-31); MEAN CORPUSCULAR HGB CONC 31 % (32-36); MEAN CORPUSCULAR VOLUME 76 fL (79.0-98.0); MONOCYTES # (AUTO) 1.1 K/uL (0.0-1.0); MONOCYTES % (AUTO) 7.3 % (1.7-9.3); NEUTROPHILS # (AUTO) 11.7 K/uL (1.8-7.7); NEUTROPHILS % (AUTO) 74.7 % (40.0-70.0); PLATELET COUNT (AUTO) 322 K/uL (130-430); RED BLOOD CELL COUNT(AUTO) 3.89 MIL/uL (4.2-6.2); WHITE BLOOD COUNT (AUTO) 15.7 K/uL (4.8-10.8)
--- NOTE | 2016-10-21 10:00 | NUR ---
1000 NOTE PATIENT RESTING COMFORTABLY AT THIS TIME. COMPLAINTS OF PAIN AT THIS TIME 8/10, CHRONIC BASE LINE. WOULD LIKE PAIN MEDICATION WHEN AVAILABLE. NO NOTABLE SIGNS OF DISTRESS AT THIS TIME. PATIENTS BED IN LOWEST POSITION, CALL LIGHT WITHIN REACH, AND 2 SIDE RAILS ARE UP FOR SAFETY. WILL CONTINUE TO MONITOR PATIENT FOR CHANGES IN STATUS.
[2016-10-21] MEDS: CEFEPIME 1 GM in D5W 50 ML IV SCH ×2 (10:47→22:21)
[2016-10-21] MEDS: AMIODARONE HCL 200 MG TABLET PO SCH ×2 (10:49→22:21)
[2016-10-21] MEDS: BACLOFEN 10 MG TABLET PO SCH ×3 (10:49→22:22)
[2016-10-21] MEDS: LACTOBACILLUS RHAMNOSUS GG 1 CAP CAPSULE PO SCH ×2 (10:50→22:22)
[2016-10-21] MEDS: CARVEDILOL 6.25 MG TABLET (COREG) PO SCH ×2 (10:50→21:00)
[2016-10-21] MEDS: DULoxetine HCL 30 MG CAPSULE.DR (CYMBALTA) PO SCH ×2 (10:51→22:22)
[2016-10-21] MEDS: POTASSIUM CHLORIDE 20 MEQ TAB.PRT.SR PO SCH (10:51)
[2016-10-21] MEDS: ATORVASTATIN 10 MG TABLET PO SCH (10:52)
[2016-10-21] MEDS: FUROSEMIDE 40 MG TABLET PO SCH (10:52)
[2016-10-21] MEDS: GABAPENTIN 100 MG CAPSULE PO SCH ×3 (10:53→22:23)
[2016-10-21] MEDS: BALSAM PERU/CASTOR OIL 60 GM OINT...G. TP SCH (10:53)
--- NOTE | 2016-10-21 12:58 | NUR ---
OPENING NOTE RECEIVED REPORT FROM GOLF INSTRUCTOR NURSE. PATIENT RESTING COMFORTABLY AT THIS TIME. COMPLAINTS OF PAIN AT THIS TIME 8/, CHRONIC BASE LINE. WOULD LIKE PAIN MEDICATION WHEN AVAILABLE. NO NOTABLE SIGNS OF DISTRESS AT THIS TIME. PATIENTS BED IN LOWEST POSITION, CALL LIGHT WITHIN REACH, AND 2 SIDE RAILS ARE UP FOR SAFETY. WILL CONTINUE TO MONITOR PATIENT FOR CHANGES IN STATUS.
--- NOTE | 2016-10-21 15:12 | NUR ---
1400 NOTE PATIENT RESTING COMFORTABLY AT THIS TIME. COMPLAINTS OF PAIN AT THIS TIME 8/10, CHRONIC BASE LINE. PATIENT GIVEN PAIN MEDICATION PREPARING FOR DRESSING CHANGES. NO NOTABLE SIGNS OF DISTRESS AT THIS TIME. PATIENTS BED IN LOWEST POSITION, CALL LIGHT WITHIN REACH, AND 2 SIDE RAILS ARE UP FOR SAFETY. WILL CONTINUE TO MONITOR PATIENT FOR CHANGES IN STATUS.
--- NOTE | 2016-10-21 16:00 | NUR ---
1600 NOTE PATIENT RESTING COMFORTABLY, PAIN MEDICATION GIVEN PRIOR TO WOUND CARE. WOUND CARE DONE, HEMOVAC DRESSING CHANGED, WITH MARLEN DIRECTOR OF GUIDANCE. PATIENT HAS NO NOTABLE SIGNS OF DISTRESS AT THIS TIME. PATIENT BED IN LOWEST POSITION, CALL LIGHT WITHIN REACH, AND 2 SIDE RAILS ARE UP FOR SAFETY. WILL CONTINUE TO MONITOR FOR CHANGES IN STATUS.
--- NOTE | 2016-10-21 16:50 | NUR ---
Wound Re-Evaluation: Patient awake, alert, oriented, and received in a [place] bed with an IsoFlex GEO low air-loss mattress. Skin is poor. Intrinsic factors that delay wound healing: Diabetes Mellitus. Extrinsic factors: Decreased mobility. Patient presents with: 1) Right Buttock near Ischium: Pressure Ulcer, present on admission. Surgically closed with a flap by Dr. Grimes on 10/19/16. Linear incision line measuring 10.5 cm x 0.5 cm. Macerated floresita-wound with dark discoloration at proximal aspect. Recommend: Cleanse wound with normal Saline. Pat dry. Put SurePrep onto floresita-wound. Trial: Place Calcium Alginate ribbon dressing into wound bed. Cover with non-adherent foam dressing, then transparent dressing. Perform wound care daily, and and needed for dressing soiling or dislodgment. If area dries out too quickly, then switch to foam only. 2) Left Buttock near Ischium: 3) Left Lateral Buttock: Pressure Ulcers, present on admission, appeared to have merged post debridement. Status post debridement with wound vac placement by Dr. Grimes on 10/19/16. Wound bed is 60% yellow tissue, 30% red tissue, 10% dark discolored tissue. No odor, scant sanguineous drainage. Both wounds together measure 5.0 cm x 12.5 cm. Recommend: Cleanse wounds with normal Saline. Pat dry. Put SurePrep onto floresita-wounds. Put Venelex ointment onto wound beds. Place Black Granufoam dressing onto wound beds. Cover with Vac Drape. Lay Vac Drape from wounds to anterior thigh, then lay black granufoam and attach it to wound, then lay more Vac Drape on top. Attach suction attachment to thigh, and attach to Wound Vac. Run Wound Vac at 125 mmHg, continuous. Perform wound care q Wednesday/Wednesday/Wednesday, and and needed for dressing soiling or dislodgment. 4) Right Upper Sacral Area: 100% brown discoloration (does not appear to be eschar), present on admission. No odor, no drainage. Recommend continue: Cleanse site with normal Saline. Pat dry. Put moisture barrier cream onto wound and floresita-wound. Cover with non-adherent foam dressing, then transparent dressing. Perform wound care daily, and and needed for dressing soiling or dislodgment. 5) Left Heel: Unstageable Pressure Ulcer, present on admission. Wound bed is 75% yellow tissue, 25% pink tissue. No odor, no drainage. Floresita-wound intact. Recommend continue: Cleanse wound with normal Saline. Pat dry. Put moisture barrier cream onto floresita-wound. Put on Venelex ointment onto wound bed. Cover with foam dressing. Perform wound care daily, and and needed for dressing soiling or dislodgment. 6) Right Distal Lateral Lower Extremity, Superior to Malleolus: Chronic wound with 100% black eschar, and scar tissue, present on admission. No odor, no drainage. Floresita-wound intact. Recommend continue: Cleanse wound with normal Saline. Pat dry. Put moisture barrier cream onto floresita-wound. Put on Venelex ointment onto wound bed. Cover with foam dressing. Perform wound care daily, and and needed for dressing soiling or dislodgment. 7) Left Distal Lateral Lower Extremity: Scar tissue from old surgery with four wounds, present on admission. Wounds are 45% yellow tissue, 45% pink tissue, 10% . No odor, scant yellow drainage. Recommend continue: Cleanse wound with normal Saline. Pat dry. Put moisture barrier cream onto floresita-wound. Put on Venelex ointment onto wound bed. Cover with foam dressing. Perform wound care daily, and and needed for dressing soiling or dislodgment. 8) Right Great Toe Chronic wound with 100% black eschar, present on admission. No odor, scant yellow drainage. Floresita-wound intact. Recommend continue: No dressing needed. Continue to monitor shift. 9) Left Lateral Foot at Fifth Metatarsal Head: Scar tissue, light pink/irina in color, present on admission. No odor, no drainage. Recommend continue: Cover with foam dressing for protection. Elevate, offload and float left foot. Also recommend continue: Reposition patient side to side only every 2 hours with pillow support. Offload pressure areas with pillows for pressure redistribution. Use moisture barrier cream on buttocks and other moisture susceptible areas qid and prn for soiling. Maintain patient on low air-loss therapy. Place towel rolls above and below left lower extremity wound to float, and use an additional towel roll to prevent external rotation of left lower extremity and also use towel rolls to prevent external rotation of right lower extremity.
--- NOTE | 2016-10-21 19:09 | NUR ---
CLOSING NOTE PATIENT RESTING COMFORTABLY, COMPLAINTS OF PAIN IN LEGS, CHRONIC PAIN. WOULD LIKE PAIN MEDICATION SOON IT CAN BE GIVEN. EXPLAINED TO THE PATIENT THE DILAUDID HE HAS BEEN GETTING IS DROPPING HIS BLOOD PRESSURE TOO LOW. PATIENT VERBALIZES UNDERSTANDING. PATIENTS BED IN LOWEST POSITION, CALL LIGHT WITHIN REACH, SIDE RAILS ARE UP FOR SAFETY.
[2016-10-21] MEDS: HYDROcodone/ACETAMIN 5-325 MG TAB (NORCO/ VICODIN) PO PRN (20:34)
[2016-10-21] MEDS: INSULIN ASPART 100 UNITS/ML, 10 ML VIAL (NovoLOG) SUBCUT PRN (22:29)
[2016-10-22 00:48] VITALS: BP 100/65; PULSE 79; RESP 18; TEMP 96.6; O2SAT 97
[2016-10-22] MEDS: HYDROmorphone 1 MG INJ. 1 MG/ML AMPUL IVP PRN ×3 (01:10→10:04)
[2016-10-22 04:59] VITALS: BP 107/55; PULSE 79; RESP 20; TEMP 97; O2SAT 99
[2016-10-22] MEDS: metroNIDAZOLE 250 mg/NS 50 ML IV SCH ×2 (05:12→14:27)
[2016-10-22] MEDS: INSULIN ASPART 100 UNITS/ML, 10 ML VIAL (NovoLOG) SUBCUT PRN ×3 (06:34→21:16)
[2016-10-22 07:32] LABS: BASOPHILS % (AUTO) 0.2 % (0.0-2.0); EOSINOPHILS # (AUTO) 0.5 K/uL (0.0-0.4); EOSINOPHILS % (AUTO) 3.6 % (0.0-4.0); HEMATOCRIT 27.9 % (36-54); HEMOGLOBIN 8.8 g/dL (14.0-18.0); LYMPHOCYTES # (AUTO) 1.8 K/uL (1.0-5.5); LYMPHOCYTES % (AUTO) 12.4 % (20.5-51.5); MEAN CORPUSCULAR HEMOGLOBIN 24 pg (27-31); MEAN CORPUSCULAR HGB CONC 32 % (32-36); MEAN CORPUSCULAR VOLUME 76 fL (79.0-98.0); MONOCYTES # (AUTO) 0.9 K/uL (0.0-1.0); MONOCYTES % (AUTO) 6.3 % (1.7-9.3); NEUTROPHILS % (AUTO) 77.5 % (40.0-70.0); PLATELET COUNT (AUTO) 317 K/uL (130-430); RED BLOOD CELL COUNT(AUTO) 3.69 MIL/uL (4.2-6.2); RED CELL DISTRIBUTION WIDTH 22.2 % (9.0-15.0); WHITE BLOOD COUNT (AUTO) 14.2 K/uL (4.8-10.8)
[2016-10-22 08:08] LABS: CALCIUM 8.4 mg/dL (8.4-11.0); CREATININE 1.34 mg/dL (0.55-1.30); POTASSIUM 4.3 mmol/L (3.5-5.1)
[2016-10-22 09:05] VITALS: BP 107/62; PULSE 71; RESP 15; TEMP 97.6; O2SAT 98
--- NOTE | 2016-10-22 09:07 | NUR ---
OPENING NOTE RECEIVED REPORT FROM ADVERTISING REP NURSE. PATIENT RESTING COMFORTABLY AT THIS TIME. COMPLAINTS OF PAIN AT THIS TIME 8/, CHRONIC BASE LINE. WOULD LIKE PAIN MEDICATION WHEN AVAILABLE. NO NOTABLE SIGNS OF DISTRESS AT THIS TIME. PATIENTS BED IN LOWEST POSITION, CALL LIGHT WITHIN REACH, AND 2 SIDE RAILS ARE UP FOR SAFETY. WILL CONTINUE TO MONITOR PATIENT FOR CHANGES IN STATUS.
[2016-10-22] MEDS: GABAPENTIN 100 MG CAPSULE PO SCH ×2 (10:10→17:03)
[2016-10-22] MEDS: DULoxetine HCL 30 MG CAPSULE.DR (CYMBALTA) PO SCH (10:10)
[2016-10-22] MEDS: AMIODARONE HCL 200 MG TABLET PO SCH (10:11)
[2016-10-22] MEDS: FUROSEMIDE 40 MG TABLET PO SCH (10:11)
[2016-10-22] MEDS: ATORVASTATIN 10 MG TABLET PO SCH (10:11)
[2016-10-22] MEDS: POTASSIUM CHLORIDE 20 MEQ TAB.PRT.SR PO SCH (10:11)
[2016-10-22] MEDS: BACLOFEN 10 MG TABLET PO SCH ×2 (10:11→17:03)
[2016-10-22] MEDS: LACTOBACILLUS RHAMNOSUS GG 1 CAP CAPSULE PO SCH (10:11)
[2016-10-22] MEDS: CARVEDILOL 6.25 MG TABLET (COREG) PO SCH (10:12)
[2016-10-22] MEDS: CEFEPIME 1 GM in D5W 50 ML IV SCH (10:13)
[2016-10-22] MEDS: BALSAM PERU/CASTOR OIL 60 GM OINT...G. TP SCH (10:14)
--- NOTE | 2016-10-22 10:48 | NUR ---
NOTE SPOKE WITH DR. BAZZI REGARDING POSSIBLE DISCHARGE. OK TO GO TO SNF OR [facility], OK TO DISCHARGE FROM [facility]. PAGED DR. ESTRADA REGARDING INFORMATION AND POSSIBLE DISCHARGE.
--- NOTE | 2016-10-22 10:50 | NUR ---
1000 NOTE PATIENT RESTING COMFORTABLY AT THIS TIME. COMPLAINTS OF PAIN AT THIS TIME 8/, CHRONIC BASE LINE. PAIN MEDICATION GIVEN TO PATIENT. RELIEF TO TOLERABLE LEVEL. NO NOTABLE SIGNS OF DISTRESS AT THIS TIME. PATIENTS BED IN LOWEST POSITION, CALL LIGHT WITHIN REACH, AND 2 SIDE RAILS ARE UP FOR SAFETY. WILL CONTINUE TO MONITOR PATIENT FOR CHANGES IN STATUS.
[2016-10-22 11:54] VITALS: BP 114/63; PULSE 79; RESP 19; TEMP 97.8; O2SAT 97
--- NOTE | 2016-10-22 13:23 | NUR ---
DISCHARGE PLANNING DC order back to [facility]. Called and spoke with [facility] will return call with bed assignment. Ordered Radiology CD. Placed transportation packet in nurses station. Pending bed assignment. Addendum: 10/22/16 at 1345 by Stella Ansari DP Patient assigned to [facility]B at [facility] RN to report [phone] bed available after 7pm. GLORIA Orozco made aware. Called [facility] [phone] arranged BLS transport [facility] 8:30pm.
--- NOTE | 2016-10-22 14:30 | NUR ---
Nutrition F/U Admitting Diagnosis Prolapsed colostomy, sepsis, moderate malnutrition Reviewed Pertinent Medical/Surgical Hx Patient Medical Record Medical History Comment: T7 paraplegia, depression, bilateral ankle fracture, R hip fracture, DM, atr fibr, decubitus ulcers per MD notes Sx Hx: Rotation flap closure of right hip, osteotomy right femur, debridement and wound VAC left hip (10/19/16) Subjective Information Physical: Pt seen resting in bed, awake and alert, at time of visit. Pt still complaining of pain in legs. Pt continues to appear adequately nourished for height. GI Integrity: Per safety engineer pressure vessels, abdomen is soft and non-distended with positive bowel sounds. No BMs recorded, but pt reports his colostomy bag is emptied approximately 1.5 times each day and is working well. PO Intakes: Pt reports a good appetite. PO records average 100% x3 meals. Pt also stated that he has been drinking the Boost Glucose Control BID. Pt denies chewing/swallowing difficulties despite recent swall evaluation. Plans/Procedures: DC planning: DC order back to [facility]. Current diet is adequate and appropriate. Pt shows improvement in PO intakes. Pt declined nutrition education at this time. Current Diet Order/Nutrition Support Mechanical soft, Boost Glucose Control BID x5 days Patient/Significant Other Able to verbalize Education Provided Not Indicated Pertinent Medications k-dur, magnesium sulfate, zofran, ativan, colace, morphine, lipitor, lasix, D50%-syringe, insulin aspart, cefepime IV, culturelle, metronizadole, dilaudid, cymbalta Pertinent Labs 10/22/16: WBC 14.2 H, BG 219 H, 10/21/16: POC BG 195 H 10/18/16: ALB 1.6 L Height (Feet) 6 feet Height (Inches) 1.00 inches Weight (Pounds) 174 pounds (admission) Weight (Calculated Kilograms) 78.542754 kilograms Patient Weight 78.925 kg Body Mass Index 22.95 kg/m2 Usual Weight 160 lbs %UBW 109 %IBW [address] [place]/Adjusted Body Weight IBW: 184 lb, 84 kg Recent Weight Change No - Per pt report Weight Status Appropriate Last BM October 22, 2016 Food Allergies No Usual Diet At Home Regular Skin Integrity Comment: Slim scale: 10; per per skin assessment 10/22/16: Wound re-evaluation note (10/21/16) Skin is poor. See below: 1) Right Buttock near Ischium: Pressure Ulcer, present on admission. 2) Left Buttock near Ischium: 3) Left Lateral Buttock: Pressure Ulcers, present on admission, appeared to have merged post debridement. Status post debridement with wound vac placement by Dr. Grimes on 10/19/16. 4) Right Upper Sacral Area: 100% brown discoloration (does not appear to be eschar), present on admission. 5) Left Heel: Unstageable Pressure Ulcer, present on admission. 6) Right Distal Lateral Lower Extremity, Superior to Malleolus: Chronic wound with 100% black eschar and scar tissue, present on admission. 7) Left Distal Lateral Lower Extremity: Scar tissue from old surgery with four wounds, present on admission. 8) Right Great Toe: Chronic wound with 100% black eschar, present on admission. 9) Left Lateral Foot at Fifth Metatarsal Head: Scar tissue, light pink/irina in color, present on admission. Current % PO Good 100% x3 meals Estimated Energy Expenditure (kcals/day) 9081-3317 kcal/day (BEE x 1.2-1.5 for sepsis, multiple wounds) Estimated Protein Required (g/day) 137-182 gm/day (1.5-2 gm/kg CBW for sepsis, multiple wounds) Estimated Fluid Required (l/day) 2.8-3 L/day (1 ml/kcal/day for maintenance) Problem/Etiology/Signs/Symptoms Increased nutritional needs related to metabolic demands as evidenced by estimated nutritional requirements for sepsis and multiple wounds. *modified Inadequate nutritional intakes related to loss of appetite and PMH of depression as evidenced by PO records average 42% x7 meals. *resolved Expected Outcomes/Goals 1. Monitor PO intakes w/ goal of pt meeting at least 75% of estimated needs with acceptable tolerance 2. Labs trending WNL 3. Maintain normal GI function 4. Improved skin integrity, wound healing 5. Maintain weight status Dietitian Recommendations * Continue mechanical soft diet, Boost Glucose Control BID per MD order Boost Glucose Control BID provides an additional 500 kcal and 28 gm protein per day * Consider MVI and VIT C Comments RD reviewed/approved fall internship's note. MARCOS SANTIAGO. Follow Up Moderate Risk: F/U in 3-5 days Addendum: 10/22/16 at [address] RD reviewed/approved fall internship's note. MARCOS SANTIAGO
[2016-10-22 16:14] VITALS: BP 117/67; PULSE 74; RESP 17; TEMP 97.6; O2SAT 99
[2016-10-22] MEDS: HYDROcodone/ACETAMIN 5-325 MG TAB (NORCO/ VICODIN) PO PRN (17:04)
--- NOTE | 2016-10-22 17:58 | NUR ---
1600 NOTE: PATIENT RESTING COMFORTABLY AT THIS TIME. COMPLAINTS OF PAIN AT THIS TIME 8/10, CHRONIC BASE LINE. PAIN MEDICATION DESIRED IF AVAILABLE. NO NOTABLE SIGNS OF DISTRESS AT THIS TIME. PATIENTS BED IN LOWEST POSITION, CALL LIGHT WITHIN REACH, AND 2 SIDE RAILS ARE UP FOR SAFETY. WILL CONTINUE TO MONITOR PATIENT FOR CHANGES IN STATUS.
[2016-10-22 18:24] VITALS: BP 117/67; PULSE 74; RESP 17; TEMP 97.6; O2SAT 99
--- NOTE | 2016-10-22 18:41 | NUR ---
1800 CLOSING NOTE PATIENT RESTING COMFORTABLY AT THIS TIME. COMPLAINTS OF PAIN AT THIS TIME 8/10, CHRONIC BASE LINE. PAIN MEDICATION DESIRED IF AVAILABLE. PATIENT BELONGINGS INVENTORIED, DISCHARGE MST COMPLETE, PATIENT AWAITING DISCHARGE TO [facility] ROOM 208-B. AMBULANCE WILL BE HERE TO TRANSPORT AT 2029. NO NOTABLE SIGNS OF DISTRESS AT THIS TIME. PATIENTS BED IN LOWEST POSITION, CALL LIGHT WITHIN REACH, AND 2 SIDE RAILS ARE UP FOR SAFETY. WILL CONTINUE TO MONITOR PATIENT FOR CHANGES IN STATUS.
--- NOTE | 2016-10-22 19:25 | NUR ---
RECEIVED REPORT FROM GLORIA TORRES AND BIPIN RN THAT TRANSPORT IS COMMING AT 2030 PM TO TRANSFER TO [facility], NEED TO CALL TO GIVE REPORT,NEED TO DO WOUND PICTURES,NEED TO COMPLETE DISCHARGE CARE PLANS,AND PRINT ALL NECESSARY PAPERS, NEED TRANSFER CONSENT. NOTIFIED ADR AND CAMERA REPAIR TECHNICIAN. ADR ALEJO AND AM RN BRIAN REMOVED HEMOVAC AND DID ALL WOUND PICTURES.PATIENT ALERT .ORIENTED X3. COLOSTOMY INTACT,NO OUTPUT. SUPRA CATHETER IN PLACE,HEMOVAC IN PLACE ,WITH BLOODY OUTPUT. BOOT ON TO BOTH LEGS. WOUND DRESSINGS DONE BY ABOVE RNS. SALINE LOCK WITH NS 10ML/HR TKO.
--- NOTE | 2016-10-22 20:35 | NUR ---
REQUEST MEDICAL SUPPORT ASSISTANT [place] TO COMPLETE DISCHARGE CARE PLANS AND PRINTED ALL NECESSARY PAPERS AND PLACE INSIDE PACKET.
--- NOTE | 2016-10-22 20:40 | NUR ---
[facility] HERE. FACE SHEET GIVEN.
--- NOTE | 2016-10-22 20:43 | NUR ---
CALLED [facility] #[phone] TO GIVE FULL REPORT TO GLORIA RODRIGUEZ .PATIENT TO GO TO [address] ISOLATION ROOM.
--- NOTE | 2016-10-22 21:00 | NUR ---
BP 107/56 82 98% 97.6 18. AT 2105 BLOOD SUGAR TAKEN 235MG/DL. 4 UNITS HOMOLOG SUBCUT GIVEN. ALL DUE MEDS NO GIVEN EXCEPT SLIDING SCALE INSULIN.
--- NOTE | 2016-10-22 21:15 | NUR ---
FLUSHED SALINE LOCK AND LEFT IT IN. EMPTIED MELO CATHETER AND HEMOVAC.
--- NOTE | 2016-10-22 21:21 | NUR ---
REPORT GIVEN TO GERALD MEEKS.
--- NOTE | 2016-10-22 21:28 | NUR ---
DISCHARGE/TRANSFER NOTES: PATIENT DISCHARGE FROM [facility] TO TRANSFER TO [facility] PER BLS AMBULANCE WITH HEP LOCK ON,ID WITH NAME AND BD ONLY,AWAKE ORIENTED X4,DID SIGNED TRANSFER CONSENT,BELONGINGS ,HEMOVAC ,SUPRA CATH HEEL BOOTS ON,WITH ALL PERTINENT TRANSFER PAPERS AND CD.
--- NOTE | 2016-10-22 21:30 | NUR ---
CALL GLORIA RODRIGUEZ AT [facility] INFORMED PATIENT JUST LEFT BLOOD SUGAR 235, 4 UNITS NOVOLOG INSULIN GIVEN ,HEMOVAC TO RIGHT HIP IN PLACE AND NO EVENING MEDS GIVEN.
== END 2016-10-22 21:35 | DRG 853 ==
LOC: STU 16:40 → SIC 16:53 → STU 10-11 19:02 → SIC 10-12 15:25 → STU 10-14 11:50 → SMU 10-20 10:43
PROVIDERS: ADMIT General Practice; ATTEND General Practice
PROC: 5A1935Z Respiratory Ventilation, Less than 24 Consecutive Hours (ICD-10-PCS; 2016-10-12)
PROC: 0DBL0ZZ Excision of Transverse Colon, Open Approach (ICD-10-PCS; principal; 2016-10-12 13:00)
PROC: 0JQL0ZZ Repair Right Upper Leg Subcutaneous Tissue and Fascia, Open Approach (ICD-10-PCS; 2016-10-19)
PROC: 0JBM0ZZ Excision of Left Upper Leg Subcutaneous Tissue and Fascia, Open Approach (ICD-10-PCS; 2016-10-19)
DX: A41.9 Sepsis, unspecified organism (principal); J96.01 Acute respiratory failure with hypoxia; I50.43 Acute on chronic combined systolic (congestive) and diastolic (congestive) heart failure; J18.9 Pneumonia, unspecified organism; L89.214 Pressure ulcer of right hip, stage 4; L89.224 Pressure ulcer of left hip, stage 4; K94.09 Other complications of colostomy; E44.0 Moderate protein-calorie malnutrition; G82.20 Paraplegia, unspecified; N39.0 Urinary tract infection, site not specified; E87.2 Acidosis; D50.9 Iron deficiency anemia, unspecified; D75.89 Other specified diseases of blood and blood-forming organs; E11.21 Type 2 diabetes mellitus with diabetic nephropathy; E87.6 Hypokalemia; F32.9 Major depressive disorder, single episode, unspecified; G89.4 Chronic pain syndrome; I25.10 Atherosclerotic heart disease of native coronary artery without angina pectoris; I25.5 Ischemic cardiomyopathy; L89.309 Pressure ulcer of unspecified buttock, unspecified stage; L89.622 Pressure ulcer of left heel, stage 2; N31.9 Neuromuscular dysfunction of bladder, unspecified; D63.8 Anemia in other chronic diseases classified elsewhere; I48.2 Chronic atrial fibrillation; Y83.3 Surgical operation with formation of external stoma as the cause of abnormal reaction of the patient, or of later complication, without mention of misadventure at the time of the procedure; Z95.5 Presence of coronary angioplasty implant and graft; I25.2 Old myocardial infarction; Z98.1 Arthrodesis status; Z78.9 Other specified health status; Q54.9 Hypospadias, unspecified
CPT/HCPCS: 36415; 36600; 71010; 80048; 80053; 80150; 81000-TC; 82803-TC; 82962; 83605; 83735-TC; 83880; 85007; 85025; 85027; 85610-TC; 85730-TC; 87040-TC; 87081; 88304; 88311; 92610-GN; 93005; 94002; 94010; 94640; 94760; A4409; A5061; A6550; J0278; J0692; J1170; J1580; J1815; J1940; J2060; J2250; J2270; J2405; J2543; J2704; J3010; J3370; J3475; J3480; J3490; J7030; J7040; J7042; J7050; J7060; J7120

== ENCOUNTER 2018-06-26 18:00 | Inpatient (IN) | payer MEDICAID, MEDICARE ==
[~2018-06-26] VITALS: Ht 182.9 cm; Wt 102.5 kg
[2018-06-26 18:00] VITALS: BP_SYST 164
[~2018-06-26 18:00] MED LIST changes: -AMI200 PO; +AMIO200T3 PO; -AMPHOGEL PO; -ARGI1POW13 PO; -ASCO500T20 PO; +ASPI-1153 PO; -BACL20TA PO; -CAT.1 PO; +CILO100T PO; -CLOP75TA2 PO; -CYM30 PO; -DICL-8 PO; -DULR10 RC; -ENOX40DI8 SQ; -ESCI10TA PO; -ESZO2TAB22 PO; -FAMO40TA7 PO; -FERR-69 PO; -FLEET RC; -FOLI-43 PO; +FURO-149 PO; -FURO20TA4 PO; -GABA-331 PO; +HALO5VIA10 IM; +HYDR2DIS PO; -HYDR2TAB34 IVP; +HYDR2TAB34 PO; +HYDR2TAB7 PO; -HYDR4TAB26 PO; -INSU100V32 SUBCUT; -LISI-600 PO; -MAG-55 PO; -MAGN400O4 PO; -MELA3TAB37 PO; -MELO-271 PO; +MERO1VIA3 IV; -METO-290 PO; -METO25TA3 PO; -MIDO2.5T PO; +MOM PO; -MORP30TA PO; -MORP30TA59 PO; -NITSL SL; -OXYB5TAB11 PO; -POLY17PO4 PO; -PRO40 PO; +SSREG SUBCUT; -SUCR1TAB78 PO; -TAMS-11 PO; -TEMA15CA51 PO; -TIZA4TAB11 PO
--- NOTE | 2018-06-26 18:00 | NUR ---
Placed in room 1 . Placed on night monitor, blood pressure machine and pulse oximeter. To gown for exam. Side rails up.
--- NOTE | 2018-06-26 18:00 | NUR ---
ER Dr. Giordano at bedside examining patient.
--- NOTE | 2018-06-26 18:05 | NUR ---
Patient arrived via ALS with 64. Patient has history of diabetes, ESBL, hypertension, CAD, and paraplegia who was brought in by EMS from [facility] for evaluation of an acute altered mental status starting ~15 minutes prior to arrival. EMS report a glucose of 123mg/dl and a field 12 lead showing afib en route. Per SNF staff the patient is typically awake, alert, and able to talk. On arrival patient is unresponsive and obtunded with a GCS of 3. Intubation will be needed per MD. Further history and ROS limited secondary to the patient's clinical condition.
--- NOTE | 2018-06-26 18:06 | NUR ---
Patient not known to be of DNR status. Respiratory therapy at bedside prior to placement. Size 7.5 ET tube placed by ROSIE Houser. Cuff inflated with 15 cc air. Auscultation of breath sounds over bilateral chest wall. ET tube secured with adi securement device. O2 sats 97% pulse ox. PCXR ordered to check tube placement.
[2018-06-26] MEDS ORDERED: NACL 0.9% 1,000 ML IV ONE (18:09)
[2018-06-26] MEDS ORDERED: cefTRIAXone 1 GM IVPB PREMIX 50 ML IV ONE (18:15)
[2018-06-26] MEDS ORDERED: ASPIRIN 81 MG TAB.CHEW PO ONE (18:15)
[2018-06-26] MEDS ORDERED: NS 1000 ML IV.SOLN IV ONE (18:15)
--- NOTE | 2018-06-26 18:18 | NUR ---
# 16 FR NG tube placed to left nare. Placement checked by auscultation of instilled air into stomach and aspiration of gastric contents. Tubing taped in place to prevent dislodging. Patient tolerated well.
--- NOTE | 2018-06-26 18:20 | NUR ---
X ray at bedside
--- NOTE | 2018-06-26 18:30 | NUR ---
Subrapubic catheter already in place. Tubing and bag are changed. Clamped for obtaining urine specimen.
--- NOTE | 2018-06-26 18:30 | NUR ---
Informed of unable to obtain blood pressure. Switched arms, actively attempting to obtain blood pressure. Femoral and carotid pulses present. Charge nurse, Jihan, made aware.
--- NOTE | 2018-06-26 18:50 | NUR ---
# 20 gauge angiocath placed to right wrist. Use of asceptic technique. Opsite placed over site. Blood return noted. Blood for lab drawn from site. Flushed with 10 cc of normal saline. No evidence of infiltration noted. Patient tolerated well.
--- NOTE | 2018-06-26 18:52 | NUR ---
MD made aware of I&O infiltration to left lower extremity, discontinued IV NS that was infusing in line. Swelling present to left knee and left lower leg.
--- NOTE | 2018-06-26 18:55 | NUR ---
MD made aware no urine has been produced.
--- NOTE | 2018-06-26 19:12 | NUR ---
Endorsed care to GLORIA Rios. Informed of patient status. Patient has one IV line present, 20ga to right wrist, infusing IVF and antibiotics. IO infiltrated LLE. NG tube has been placed, suprapubic catheter bag and tubing had been changed. Patient currently on monitor. RT at bedside to assist as patient has low oxygen saturation, despite the ventilator at 100% FiO2. Current oxygen saturation of 85%, and heart rate at 75bpm. Informed Dr. Giordano that carotid and femoral pulses present, weak radial and posterior tibialis pulses, unable to obtain blood pressure. No new orders received.
[2018-06-26] MEDS ORDERED: NOREPINEPHRINE BITARTRATE 4 MG in NS 246 ML IV ONE (19:15)
--- NOTE | 2018-06-26 19:15 | NUR ---
Assumed pt care. Pt obtunded, blink reflexes intact, eyes fixed, pinpoint, non-reactive. Vent settings: A/C mode, R 14, Vt 500mL, PEEP 5, FiO2 100%, SPO2 98% to earlobe. ETT secure, suctioned with scant amount of yellow sputum to tubing, NGT secure and patent on intermitten wall sxn with light brown stomach contents to tubing. B/P not registering. PIV to right thumb patent with NS infusing without difficulty. F/C secure, no U/O to tubing or bag. I/O to left medial tuberosity not patent, mild swelling noted, discontinued. Addendum: 06/26/18 at 2140 by RM Pt has suprapubic catheter, not a F/C.
[2018-06-26] MEDS ORDERED: NOREPINEPHRINE 4 MG/4 ML VIAL IV ONE ×2 (19:18→23:37)
--- NOTE | 2018-06-26 19:20 | NUR ---
15 mm 15Ga I/O placed to Right medial tuberosity, secured with gauze and tape. Levophed drip started at 2 mcg/min. B/P unobtainable. Skin mottled, Warm Blankets x 4 applied.
[2018-06-26 19:22] LABS: HEMATOCRIT 46.5 % (36-54); HEMOGLOBIN 15.3 g/dL (14.0-18.0); RED BLOOD CELL COUNT(AUTO) 5.72 MIL/uL (4.2-6.2)
[2018-06-26 19:23] LABS: MEAN CORPUSCULAR HEMOGLOBIN 27 pg (27-31); MEAN CORPUSCULAR VOLUME 81 fL (79.0-98.0)
[2018-06-26 19:24] LABS: MEAN CORPUSCULAR HGB CONC 33 % (32-36); PLATELET COUNT (AUTO) 416 K/uL (130-430); RED CELL DISTRIBUTION WIDTH 19.4 % (9.0-15.0)
--- NOTE | 2018-06-26 19:32 | NUR ---
Report given to GLORIA Rios.
--- NOTE | 2018-06-26 19:35 | NUR ---
B/P 87/37, P 73. Levophed drip increased to 4 mcg/min.
--- NOTE | 2018-06-26 19:45 | NUR ---
2nd Liter NS complete. 3rd Liter NS started via pressure bag to patent RLE I/O.
--- NOTE | 2018-06-26 19:48 | NUR ---
B/P 77/40, P 72. Levophed drip increased to 6 mcg/min.
--- NOTE | 2018-06-26 19:55 | NUR ---
B/P 73/49, P 73, SPO2 98%. Levophed drip titrated to 8 mcg/min.
[2018-06-26 19:59] LABS: ANION GAP 12 (5-15); CHLORIDE 97 mmol/L (98-107); GLUCOSE 123 mg/dL (70-99); POTASSIUM 5.5 mmol/L (3.5-5.1); SODIUM SERUM 129 mmol/L (136-145)
[2018-06-26 20:00] LABS: CREATININE 3.15 mg/dL (0.55-1.30); GFR AFRICAN AMERICAN 26 mL/min (>90); TOTAL BILIRUBIN 0.8 mg/dL (0.0-1.0); UREA NITROGEN, BLOOD 61 mg/dL (8-21)
[2018-06-26 20:01] LABS: ALANINE AMINOTRANSFERASE 70 U/L (12-78); ALBUMIN 2.2 g/dL (3.4-4.8); ASPARTATE AMINOTRANSFERASE 66 U/L (10-37)
[2018-06-26 20:02] LABS: ALCOHOL, BLOOD < 3 mg/dL (<10); AMYLASE 72 U/L (0-100); LIPASE 76 U/L (73-393)
--- NOTE | 2018-06-26 20:05 | NUR ---
Brandy neal in EDM - 06/27/18 at 0036 by SDEDAJ B/P 79/35, P 72, SPO2 99%. Levophed drip titrated to 12 mcg/min.
--- NOTE | 2018-06-26 20:10 | NUR ---
B/P 79/35, P 72, SPO2 99%. Levophed drip titrated to 12 mcg/min.
--- NOTE | 2018-06-26 20:12 | NUR ---
B/P 98/41, P74, SPO2 100%.
[2018-06-26] MEDS ORDERED: VANCOMYCIN HCL 1,000 MG in NS 250 ML IV ONE (20:15)
--- NOTE | 2018-06-26 20:16 | NUR ---
210mL light brown colored stomach contents to NGT suction cannister.
[2018-06-26 20:20] LABS: BAND % (MANUAL) 51 % (0-6); BASOPHILS % (MANUAL) 0 % (0-2); EOSINOPHILS % (MANUAL) 0 % (0-7); LYMPHOCYTES % (MANUAL) 9 % (20-46); MONOCYTES % (MANUAL) 3 % (0-11)
--- NOTE | 2018-06-26 20:27 | NUR ---
B/P 87/51, P 75. Pt not responding to Levophed drip at 12 mcg/min. Dr. Stallworth called to bedside. Pt to be started on Dopamine.
[2018-06-26 20:28] LABS: INR 1.1 (0.80-1.20); PROTHROMBIN TIME 10.9 SECS (9.5-12.5)
[2018-06-26] MEDS ORDERED: DOPamine PREMIX 250 ML IV ONE (20:30)
--- NOTE | 2018-06-26 20:30 | NUR ---
B/P 79/27, P 79. Dopamine infustion initiated at 2 mcg/kg/min to patent 20 GA PIV to Right thumb.
--- NOTE | 2018-06-26 20:40 | NUR ---
B/P 87/38, P 77, T 97.9. No change in Vent settings. No U/O. Dr. Stallworth at bedside. Skin pink and mottled, warm and dry, pulse weak and thready.
--- NOTE | 2018-06-26 20:50 | NUR ---
B/P 84/50, P 77. Dopamine drip titrated to 4 mcg/kg/min.
--- NOTE | 2018-06-26 21:00 | NUR ---
B/P 83/39, P 76. I/O placed to Left medial tuberosity, NS 500 mL bolus now infusing to this site.
[2018-06-26] MEDS ORDERED: VANCOMYCIN HCL 1000 MG/VIAL IV ONE (21:07)
--- NOTE | 2018-06-26 21:15 | NUR ---
B/P 75/26, P 80. Dr. Stallworth made aware. Dopamine drip increased to 6 mcg/kg/min. Levophed drip increased to 16 mcg/min.
--- NOTE | 2018-06-26 21:20 | NUR ---
B/P 66/40, P 80. Dopamin drip increased to 8 mcg/kg/min. Levophed drip increased to 18 mcg/min.
--- NOTE | 2018-06-26 21:22 | NUR ---
Vancomycin 500 mg IVP now infusing at 150 mL/hr to patent I/O to LLE. NGT with 300 mL light brown fluid to suction container. Scant amount of pink tinged aspirate from ETT to suction line. All PIV access sites secure and patent. No U/O noted. Dr. Stallworth at bedside. Attempting to contact U/S for MD assistance to place a central line.
--- NOTE | 2018-06-26 21:35 | NUR ---
B/P 80/36, P 82, SPO2 98%, no change in vent settings. Dopamine drip increased 10 mcg/kg/min. Levophed drip increased to 20 mcg/min.
--- NOTE | 2018-06-26 21:50 | NUR ---
B/P 68/33, P 82. Dr. Stallworth at bedside. Levophed drip increased to 22 mcg/min, Dopamine drip increased to 10 mcg/kg/min.
--- NOTE | 2018-06-26 22:05 | NUR ---
B/P 67/43, P 83, SPO2 97%. Dr. Stallworth made aware. Pt placed in Trendelenburg position. Dopamine increased to 12 mcg/kg/min. Levophed increased to 24 mcg/min.
--- NOTE | 2018-06-26 22:08 | NUR ---
B/P 123/53, P 82, SPO2 98%. No change in Vent settings. PIV to Right thumb patent and secure, I/O to RLE and LLE patent and secure. No U/O. Dr. Stallworth notified.
--- NOTE | 2018-06-26 22:14 | NUR ---
B/P 69/34, P 81. Dr. Stallworth notified. Dopamine drip increased to 14 mcg/kg/min. Levophed drip increased to 26 mcg/min.
--- NOTE | 2018-06-26 22:20 | NUR ---
Dr. Stallworth on phone with pt.'s sister, Destinee Fontana (next of kin) to discuss POLST. Pt has Full Code on file. Pt.'s sister unaware of pt.'s decision of Full Code as signed by pt. in 2017. Destinee states that she will speak to her sister to make sure they are in agreement and will call back with final decision.
--- NOTE | 2018-06-26 22:36 | NUR ---
Destinee Fontana calls back to inform that she spoke with her sister, Jeannie Soria and that they are in agreement to follow pt.'s wishes as documented on his POLST as FULL CODE.
--- NOTE | 2018-06-26 22:40 | NUR ---
B/P 81/31, P 81, SPO2 98%. No change in vent settings. Dopamine drip increased to 16 mcg/kg/min. Levophed drip increased to 28 mcg/min.
--- NOTE | 2018-06-26 23:00 | NUR ---
B/P 74/46, P 81. Dr. Stallworth notified, no further orders received. Pt to be transferred to ICU.
--- NOTE | 2018-06-26 23:15 | NUR ---
Spoke with pt. Jeannie's other sister and she states she is in accordance with Destinee Fontana to continue with pt.'s wishes to remain FULL CODE.
[2018-06-26] MEDS ORDERED: HYDROCORTISONE SOD SUCC 250 MG/2 ML IVP ONE (23:30)
--- NOTE | 2018-06-26 23:30 | NUR ---
B/P 108/65, P 80. Dr. Stallworth notified. Addendum: 06/27/18 at 0026 by RM NGT repositioned. Copious amount of brown/green colored gastric contents to suction cannister with total volume of 950 mL. No change in Vent settings. No change in Dopamine and Levophed rates. All IV sites remain patent and secure. No U/O.
--- NOTE | 2018-06-26 23:50 | NUR ---
Patient will be admitted to care of Dr. Buenrostro. Admitted to ICU unit. Will go to room 4. Belongings list completed. Summary report printed. Report will be given at bedside.
[2018-06-27] VITALS (18 sets, daily range): BP systolic 51–163
[2018-06-27] MEDS ORDERED: ACETAMINOPHEN 650 MG/20.3 ML UDC PO PRN
[2018-06-27] MEDS ORDERED: LORazepam 2 MG/ML VIAL IVP PRN
[2018-06-27] MEDS ORDERED: ONDANSETRON HCL 4 MG/2 ML VIAL IVP PRN
[2018-06-27] MEDS ORDERED: DEXTROSE 50% JECT 50 ML DISP.SYRIN IVP PRN
[2018-06-27] MEDS ORDERED: INSULIN REGULAR, HUMAN 100 UNITS/ML, 10 ML VIAL (novoLIN R) SUBCUT PRN
--- NOTE | 2018-06-27 00:15 | NUR ---
Admission Assessment Received Pt from ER @2350. Upon arrival, Pt obtunded, non-verbal. NSR Shown on monitor. PT has ETT size 7.5cm Lip line 21cm in place. Vent settings: AC 14, FIO2 100%, TV 500, PEEP 5. NGT in left nare. Auscultated and flushed. Pt has a Suprapubic catheter in place, no urine draining. Pt has colostomy in place, no stool present. IV site noted on Rt wrist 20g. IO IV on bilateral lower extremities. IV sites patent and flushed. Dopamine Drip running @16mcg/kg/min and Levophed running @ 8mcg/min. Bed locked in lowest position, safety precautions in place. Will continue to monitor.
--- NOTE | 2018-06-27 00:25 | NUR ---
CALLED [facility] AND SPOKE WITH MELISSA FOR DR MCKEON ABOUT THE CONSULT CALLED AT 12:20 AM
--- NOTE | 2018-06-27 00:25 | NUR ---
SPOKE WITH REGARDING STAT CONSULT, UPDATED PT STATUS ORDERS RECEIVED AND CARRIED OUT.
--- NOTE | 2018-06-27 00:29 | NUR ---
CALLED [facility] SPOKE WITH MELISSA FOR DR MAY ABOUT THE CONSULT CALLED @ 12:23AM
--- NOTE | 2018-06-27 00:30 | NUR ---
CALLED [facility], AND UPDATED HIM WITH PT'S POOR STATUS, NO NEW ORDERS RECEIVED.
[2018-06-27] MEDS ORDERED: PIPERACILLIN/TAZOBACTAM 2.25 GM VIAL IV ONE (00:43)
[2018-06-27] MEDS: NACL 0.9% 1,000 ML IV SCH ×3 (00:44→11:08)
[2018-06-27] MEDS: PIPERACILLIN/TAZO 2.25G/DEX-IS 50 ML IV SCH ×3 (00:44→11:56)
[2018-06-27] MEDS: DOPamine PREMIX 250 ML IV PRN ×7 (00:51→11:37)
[2018-06-27] MEDS ORDERED: DOPamine PREMIX 250 ML IV ONE (00:51)
[2018-06-27] MEDS: PANTOPRAZOLE SODIUM 40 MG/VIAL (PROTONIX) IVP SCH ×2 (00:53→09:46)
[2018-06-27] MEDS ORDERED: PANTOPRAZOLE SODIUM 40 MG/VIAL (PROTONIX) ONE (00:54)
[2018-06-27] MEDS ORDERED: SODIUM POLYSTYRENE SULFONATE 15 GM/60 ML UDBTL PO SCH (01:00)
--- NOTE | 2018-06-27 01:25 | NUR ---
STAT ABG RESULTS CALLED TO , ORDERS RECEIVED AND CARRIED OUT.
[2018-06-27] MEDS: NOREPINEPHRINE BITARTRATE 4 MG in NS 246 ML IV PRN ×4 (01:33→06:57)
[2018-06-27] MEDS ORDERED: NOREPINEPHRINE 4 MG/4 ML VIAL IV ONE ×6 (01:36→10:29)
--- NOTE | 2018-06-27 04:00 | NUR ---
RN Rounds Pt remains obtunded. Low BP noted (60-70 SBP). Levophed @40mcg/min and Dopamine running @40mcg/kg/min, both at max doses. No additional orders noted. Will continue to monitor.
[2018-06-27] MEDS: HYDROCORTISONE SOD SUCC 100 MG/2 ML VIAL IVP SCH ×2 (06:10→11:58)
--- NOTE | 2018-06-27 07:00 | NUR ---
CALLED INFORMED HIM REGARDING CLOGGED SUPRAPUBIC CATH, ACCU CHECK 437,AND NEED FOR PICC LINE. ORDERS RECEIVED.
--- NOTE | 2018-06-27 07:00 | NUR ---
Nutrition Update Slim Scale 9 noted. Pt admitted for septic shock, acute respiratory failure Diet: tube feeding BMI: 30.7 kg/m2 RD to follow per nutrition care standards.
--- NOTE | 2018-06-27 07:13 | NUR ---
Consult Urology Shana Martinez called spoke to kareem dialed [phone] dick
[2018-06-27] MEDS ORDERED: INSULIN NPH 100 UNITS/ML 10 ML VIAL SUBCUT SCH (07:15)
--- NOTE | 2018-06-27 07:15 | NUR ---
Received report and comatose on Vent. 7.5 ET on vent at AC 24/500/100%/+5 with sats 93%. Lungs with crackles bilaterally. Pt lying flat in bed. SR on monitor rate 60's. Left lower leg with IO IV in place with Levophed at 40 mcgs and IVF at 200 cc/hr infusing. Right lower leg IO not being used d/t leaking. Dopamine infusing to right wrist at 40 mcgs. BP mostly high but labile at times. NG tube in place with no drainage. Suprapubic archer cath in place with no drainage. Unable to irrigate catheter. Pts skin pale and cool to touch. Extremities edematous and feet mottled. Unable to feel peripheral pulses. SR on monitor rate 60-70. Pt has multiple wounds to legs with wound care done by hourly shift on admission. Pt reported to have a sacral wound and dressing removed in an attempt to do wound care by hourly shift, however pt is too unstable to complete procedure. Dressing left off at this time. If pt becomes a little more stable will attempt wound care again. Wound care consult ordered. Pt on a low air loss mattress.
--- NOTE | 2018-06-27 07:15 | NUR ---
Endorsement Report given to Oksana CASTRO at bedside via [facility] approach.
--- NOTE | 2018-06-27 07:30 | NUR ---
NPH N insulin 10u given.
--- NOTE | 2018-06-27 07:30 | NUR ---
Dr Lu in to see pt. Orders left.
--- NOTE | 2018-06-27 07:38 | NUR ---
RT NOTES- AC 30 NOTIFIED BY GLORIA ORTEGA, PER DR. MCKEON PLACED PT ON AC 30 AT 0735. WILL CONTINUE MONITORING.
[2018-06-27 07:58] LABS: CALCIUM 7.5 mg/dL (8.4-11.0); POTASSIUM 4.8 mmol/L (3.5-5.1); TOTAL BILIRUBIN 1.9 mg/dL (0.0-1.0)
[2018-06-27 07:59] LABS: ALBUMIN 1.4 g/dL (3.4-4.8); PHOSPHORUS 4.6 mg/dL (2.7-4.5)
[2018-06-27 08:02] LABS: WHITE BLOOD COUNT (AUTO) 5.3 K/uL (4.8-10.8)
[2018-06-27 08:04] LABS: HEMATOCRIT 41.3 % (36-54); HEMOGLOBIN 13.5 g/dL (14.0-18.0); MEAN CORPUSCULAR VOLUME 83 fL (79.0-98.0); RED BLOOD CELL COUNT(AUTO) 4.97 MIL/uL (4.2-6.2)
[2018-06-27 08:05] LABS: BASOPHILS % (AUTO) 0.1 % (0.0-2.0); EOSINOPHILS % (AUTO) 0.4 % (0.0-4.0); LYMPHOCYTES # (AUTO) 0.3 K/uL (1.0-5.5); LYMPHOCYTES % (AUTO) 4.8 % (20.5-51.5); MEAN CORPUSCULAR HEMOGLOBIN 27 pg (27-31); MEAN CORPUSCULAR HGB CONC 33 % (32-36); MONOCYTES # (AUTO) 0.3 K/uL (0.0-1.0); MONOCYTES % (AUTO) 5.7 % (1.7-9.3); NEUTROPHILS # (AUTO) 4.7 K/uL (1.8-7.7); PLATELET COUNT (AUTO) 339 K/uL (130-430); RED CELL DISTRIBUTION WIDTH 19.6 % (9.0-15.0)
--- NOTE | 2018-06-27 08:25 | NUR ---
Spoke with pts sister Destinee Fontana. She authorized us to call [facility] [phone] when pt passes away.
--- NOTE | 2018-06-27 08:34 | NUR ---
[facility] Called [facility] about impending referral. Spoke with Marisol at [phone]. She requested to speak to the family first to ask questions that only they would have the answers to. I called Destinee Fontana, pts daughter back and informed her. I asked her to give me a call back when she is finished. Meanwhile, no change in pts condition.
[2018-06-27 09:13] LABS: INR 1.3 (0.80-1.20); PROTHROMBIN TIME 13.2 SECS (9.5-12.5)
[2018-06-27] MEDS ORDERED: SODIUM BICARBONATE 8.4% JECT 50 MEQ/50 ML SYRINGE IVP ONE (09:30)
[2018-06-27] MEDS ORDERED: SODIUM BICARBONATE 8.4% JECT 50 MEQ/50 ML SYRINGE ONE (09:32)
[2018-06-27] MEDS ORDERED: COMMUNICATION ORDER XX ONE (10:15)
[2018-06-27] MEDS ORDERED: NOREPINEPHRINE BITARTRATE 16 MG in D5W 234 ML IV PRN (11:00)
[2018-06-27] MEDS ORDERED: NOREPINEPHRINE BITARTRATE 16 MG in NS 234 ML IV PRN (11:01)
[2018-06-27] MEDS ORDERED: DOPAMINE HCL IV PRN (12:00)
[2018-06-27] MEDS ORDERED: AZITHROMYCIN 500 MG in NS 250 ML IV SCH (12:00)
[2018-06-27] MEDS ORDERED: D5W IV PRN (12:00)
--- NOTE | 2018-06-27 13:10 | NUR ---
Dr. Buenrostro in to see pt.
--- NOTE | 2018-06-27 13:35 | NUR ---
Wound Evaluation Attempted: Late note for 1335 secondary to patient care. Wound evaluation attempted, but held by RN secondary to hemodynamic instability. Patient was on levo fed drip at 40 g and opening drip at 40 g. Will attempt wound evaluation again at a later time.
--- NOTE | 2018-06-27 14:34 | NUR ---
Pt systole on the monitor. Pt is a DNR. Levophed infusing at 40 mcgs and Dopamine at 40mcgs infusing. Pt on the vent AC 30/500/100% p5. Skin pale and cool, extremities mottled. ER doctor called to pronounce pt.
--- NOTE | 2018-06-27 14:34 | NUR ---
MARIMAR GONZALEZ here and pronounced pt .
--- NOTE | 2018-06-27 14:53 | NUR ---
Informed 's patient Dr. Arias called spoke to baylee dialed [phone] Dr. Buenrostro called spoke to ariceli dialed [phone] Dr. Puga called spoke to fior dialed [phone] Dr. Chávez called spoke to jezzika dialed [phone] Shana Martinez called spoke to lanni dialed [phone]
--- NOTE | 2018-06-27 15:23 | NUR ---
[facility] notified.
[2018-06-27] MEDS ORDERED: ENOXAPARIN SODIUM 30 MG/0.3 ML SYRINGE SUBCUT SCH (21:00)
== END 2018-06-27 14:34 | disposition expired | DRG 720 ==
LOC: SED 18:00 → SIC 22:44
PROVIDERS: ADMIT Internal Medicine; ATTEND Internal Medicine
PROC: 5A1935Z Respiratory Ventilation, Less than 24 Consecutive Hours (ICD-10-PCS; principal; 2018-06-26)
PROC: 0BH17EZ Insertion of Endotracheal Airway into Trachea, Via Natural or Artificial Opening (ICD-10-PCS; 2018-06-26)
DX: A41.9 Sepsis, unspecified organism (principal); J96.00 Acute respiratory failure, unspecified whether with hypoxia or hypercapnia; J69.0 Pneumonitis due to inhalation of food and vomit; R65.21 Severe sepsis with septic shock; G93.41 Metabolic encephalopathy; G93.1 Anoxic brain damage, not elsewhere classified; N17.9 Acute kidney failure, unspecified; I11.0 Hypertensive heart disease with heart failure; E87.2 Acidosis; I50.42 Chronic combined systolic (congestive) and diastolic (congestive) heart failure; E11.51 Type 2 diabetes mellitus with diabetic peripheral angiopathy without gangrene; E11.65 Type 2 diabetes mellitus with hyperglycemia; F32.9 Major depressive disorder, single episode, unspecified; G82.20 Paraplegia, unspecified; G89.4 Chronic pain syndrome; I25.10 Atherosclerotic heart disease of native coronary artery without angina pectoris; I25.5 Ischemic cardiomyopathy; I48.0 Paroxysmal atrial fibrillation; I46.9 Cardiac arrest, cause unspecified; J45.909 Unspecified asthma, uncomplicated; N31.9 Neuromuscular dysfunction of bladder, unspecified; N39.0 Urinary tract infection, site not specified; Z66 Do not resuscitate; E66.9 Obesity, unspecified; K21.9 Gastro-esophageal reflux disease without esophagitis; L89.90 Pressure ulcer of unspecified site, unspecified stage; Z53.29 Procedure and treatment not carried out because of patient's decision for other reasons; I25.2 Old myocardial infarction; Q54.9 Hypospadias, unspecified; Z74.01 Bed confinement status; Z87.440 Personal history of urinary (tract) infections; Z93.3 Colostomy status; Z95.5 Presence of coronary angioplasty implant and graft; Z99.3 Dependence on wheelchair; Z68.30 Body mass index [BMI] 30.0-30.9, adult; Z91.048 Other nonmedicinal substance allergy status
CPT/HCPCS: 36415; 36600; 71045; 76770; 80053; 82150-TC; 82550-TC; 82803-TC; 82962; 83605; 83690-TC; 83880; 84100-TC; 84484; 85007; 85025; 85027; 85610-TC; 85730-TC; 87040-TC; 87081; 93005; 94002; 94003; 94640; 96361; 96365; 96366; 96375; 99285; C9113; G0482; J0456; J0696; J1265; J1720; J1815; J2543; J3370; J7030; J7050; J7060